=== PATIENT | female | born 1930 | race Caucasian/White ===

== ENCOUNTER → 2016-09-10 | Outpatient (CLI) | payer OTHER ==
[2016-07-21 16:11] VITALS: BP 152/62
[2016-09-10 11:16] LABS: BASOPHILS # (AUTO) 0.1 X10^3/uL (0.0-0.1); BASOPHILS % (AUTO) 0.8 % (0.2-1.0); EOSINOPHILS # (AUTO) 0.1 x10^3/uL (0.0-0.2); EOSINOPHILS % (AUTO) 0.8 % (0.9-2.9); HEMATOCRIT 36.3 % (36.0-47.0); HEMOGLOBIN 12.2 g/dL (12.0-16.0); LYMPHOCYTES # (AUTO) 1.3 X10^3/uL (1.3-2.9); LYMPHOCYTES % (AUTO) 14.6 % (21.0-51.0); MEAN CORPUSCULAR HEMOGLOBIN 30.1 pg (27.0-34.0); MEAN CORPUSCULAR HGB CONC 33.7 g/dL (33.0-35.0); MEAN CORPUSCULAR VOLUME 89.1 fL (80.0-100.0); MEAN PLATELET VOLUME 8.1 fL (7.4-11.0); MONOCYTES # (AUTO) 0.6 x10^3/uL (0.3-0.8); MONOCYTES % (AUTO) 6.3 % (0.0-13.0); NEUTROPHILS # (AUTO) 7.1 x10^3/uL (2.2-4.8); NEUTROPHILS % (AUTO) 77.5 % (42.0-75.0); PLATELET COUNT 253 X10^3/uL (150.0-450.0); RED BLOOD COUNT 4.08 X10^6/uL (3.5-5.4); RED CELL DISTRIBUTION WIDTH 14.1 % (11.6-16.5); WHITE BLOOD COUNT 9.1 X10^3/uL (3.6-10.0)
[2016-09-10 11:40] LABS: ALANINE AMINOTRANSFERASE 23 Units/L (12-78); ALBUMIN 3.8 g/dL (3.4-5.0); ALKALINE PHOSPHATASE 76 Units/L (46-116); ASPARTATE AMINO TRANSFERASE 28 Units/L (15-37); BLOOD UREA NITROGEN 14 mg/dL (7-18); CALCIUM 9.1 mg/dL (8.5-10.1); CARBON DIOXIDE 30.3 mmol/L (21-32); CHLORIDE 105 mmol/L (98-107); CREATININE 1.02 mg/dL (0.55-1.02); GLUCOSE 102 mg/dL (65-99); SODIUM 144 mmol/L (136-145); T4 (THYROXINE) 11.1 ug/dL (4.7-13.3); TOTAL PROTEIN 7.3 g/dL (6.4-8.2); TSH (3RD GENERATION) 1.525 uIU/mL (0.358-3.74); eGFR BLACK RACES > 60 (>60); eGFR NON BLACK RACES 54 (>60)
[2016-09-17 06:09] LABS: METHYLMALONIC ACID 0.22 umol/L (0.00-0.40)
== END ==
LOC: LAB 10:05
PROVIDERS: ATTEND Nurse Practitioner Family
DX: N30.91 Cystitis, unspecified with hematuria (principal); I10 Essential (primary) hypertension; D64.89 Other specified anemias; E11.9 Type 2 diabetes mellitus without complications; R44.1 Visual hallucinations; B96.5 Pseudomonas (aeruginosa) (mallei) (pseudomallei) as the cause of diseases classified elsewhere
CPT/HCPCS: 36415; 80053; 82607; 82615; 82746; 83036; 83918; 84436; 84443; 85025; 85045; 86256; 86340; 87086; 87088; 87186

== ENCOUNTER → 2016-09-16 | Outpatient (CLI) | payer OTHER ==
[2016-07-21 16:11] VITALS: BP 152/62
--- NOTE | 2016-09-16 12:55 | CT ---
STUDY: CT HEAD WITHOUT CONTRAST HISTORY: Visual hallucination. Headaches. Dizziness. COMPARISON: None. TECHNIQUE: Multiple axial images of the head were obtained from the skull base to the vertex without administration of IV contrast. Automated exposure control (AEC) was utilized to adjust the MA and/o r kV. Findings: The sulci, cisterns and ventricles are prominent consistent with diffuse volume loss. There are confluent and scattered foci of low attenuation in the periventricular and subcortical whi te matter of both hemispheres. This is a nonspecific finding which likely represents microangiopathi c change in a patient of this age. Calcifications are noted along the anterior falx. There is no evidence of acute territorial infarct ion, hemorrhage, mass, mass effect or midline shift. There are no abnormal extra-axial fluid collect ions. There is no evidence of acute osseous abnormality or significant soft tissue swelling. IMPRESSION: 1. No evidence of acute intracranial abnormality. 2. Nonspecific white matter change and volume loss as described. 3. If there remains strong clinical concern for acute intracranial abnormality, then an MRI examinat ion should be considered for further evaluation. Reported By:
--- NOTE | 2016-09-16 13:16 | VAS ---
HISTORY: Visual hallucination Study: Bilateral Carotid Ultrasound Comparison: None Technique: Multiple gardiner scale and color flow Doppler images of the right and left carotid arterial system were obtained. The vertebral arterial system was evaluated as well. Findings: Normal color flow Doppler is seen throughout the right and left carotid arterial system. There is s mooth calcified present at the bilateral carotid bifurcations. Peak systolic velocity in the right I CA is 110 cm/sec. Peak systolic velocity in the left ICA is 78 cm/sec. The right ICA/CCA ratio is 2. 43. The left ICA/CCA ratio is 1.35. The right and left vertebral arteries demonstrate antegrade flow . IMPRESSION: 1. No hemodynamically significant stenosis of the carotid arteries using velocity criteria. The rig ht ICA/CCA ratio is slightly elevated however there is no significant plaque or elevated ICA velocit y. Reported By:
== END ==
LOC: RAD 10:57
PROVIDERS: ATTEND Nurse Practitioner Family
DX: R44.1 Visual hallucinations (principal)
CPT/HCPCS: 70450; 93880

== ENCOUNTER → 2016-10-06 | Outpatient (CLI) | payer OTHER ==
[2016-07-21 16:11] VITALS: BP 152/62
== END ==
LOC: RT 08:55
PROVIDERS: ATTEND Nurse Practitioner Family
DX: G47.09 Other insomnia (principal)
CPT/HCPCS: 95819

== ENCOUNTER → 2016-10-11 | Outpatient (CLI) | payer OTHER ==
[2016-07-21 16:11] VITALS: BP 152/62
--- NOTE | 2016-10-12 13:49 | MRI ---
Indication: Headaches and mental status changes. Exam: MRI brain without contrast. Technique: Routine multiplanar multisequence imaging was performed through the brain without contras t. Findings: The ventricles are mildly enlarged and there is diffuse prominence of the cortical sulci. There is no abnormal signal on the diffusion-weighted data set which would suggest any type of acute ischemia. The midline structures are unremarkable. There are numerous punctate and confluent areas of abnormal signal throughout the periventricular white matter bilaterally. No intracranial hemorrha ge or edema is seen and there is no extra-axial fluid collection or mass. The 7th and 8th nerve comp lexes are symmetric and normal size and signal intensity. There is minimal mucosal thickening scatte red in the mastoid air cells on the left. There is no extra-axial fluid collection or mass. The visu alized vascular structures show normal flow voids. Impression: Mild atrophy and moderate chronic microischemic changes throughout the deep white matter with no acu te intracranial abnormality seen. 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 Reported By:
== END ==
LOC: RAD 10:26
PROVIDERS: ATTEND Psychiatry & Neurology Neurology
DX: G47.00 Insomnia, unspecified (principal)
CPT/HCPCS: 70551

== ENCOUNTER 2017-02-24 18:02 | Inpatient (IN) | payer OTHER ==
[2017-02-24 18:48] LABS: BASOPHILS % (AUTO) 0.6 % (0.2-1.0); EOSINOPHILS # (AUTO) 0.1 x10^3/uL (0.0-0.2); EOSINOPHILS % (AUTO) 1.5 % (0.9-2.9); HEMATOCRIT 35.8 % (36.0-47.0); HEMOGLOBIN 12.3 g/dL (12.0-16.0); LYMPHOCYTES # (AUTO) 1.3 X10^3/uL (1.3-2.9); LYMPHOCYTES % (AUTO) 16.5 % (21.0-51.0); MEAN CORPUSCULAR HEMOGLOBIN 30.3 pg (27.0-34.0); MEAN CORPUSCULAR HGB CONC 34.3 g/dL (33.0-35.0); MEAN CORPUSCULAR VOLUME 88.5 fL (80.0-100.0); MEAN PLATELET VOLUME 7.4 fL (7.4-11.0); MONOCYTES # (AUTO) 0.7 x10^3/uL (0.3-0.8); MONOCYTES % (AUTO) 9.4 % (0.0-13.0); NEUTROPHILS # (AUTO) 5.5 x10^3/uL (2.2-4.8); PLATELET COUNT 214 X10^3/uL (150.0-450.0); RED BLOOD COUNT 4.05 X10^6/uL (3.5-5.4); RED CELL DISTRIBUTION WIDTH 13.8 % (11.6-16.5); WHITE BLOOD COUNT 7.7 X10^3/uL (3.6-10.0)
[2017-02-24 19:08] LABS: B-TYPE NATRIURETIC PEPTIDE 91.7 pg/mL (0-79)
[2017-02-24 19:11] LABS: ALANINE AMINOTRANSFERASE 23 Units/L (12-78); ALBUMIN 3.7 g/dL (3.4-5.0); ALKALINE PHOSPHATASE 73 Units/L (46-116); ASPARTATE AMINO TRANSFERASE 31 Units/L (15-37); BLOOD UREA NITROGEN 14 mg/dL (7-18); CALCIUM 9.8 mg/dL (8.5-10.1); CARBON DIOXIDE 33.1 mmol/L (21-32); CHLORIDE 100 mmol/L (98-107); CKMB % 1.5 % (<4); COR NA(FOR HYPERGLY) 138 mmol/L (136-145); CREATINE KINASE 129 Units/L (26-192); CREATINE KINASE MB 1.9 ng/mL (0-4.0); CREATININE 1.24 mg/dL (0.55-1.02); SODIUM 137 mmol/L (136-145); TOTAL PROTEIN 7.4 g/dL (6.4-8.2); TROPONIN I 0.02 ng/mL (0-1.5); eGFR BLACK RACES 53 (>60); eGFR NON BLACK RACES 43 (>60)
--- NOTE | 2017-02-24 19:29 | CT ---
History: Syncope and altered mental status Study: CT head without contrast. Sagittal and coronal reformations were provided. Comparison: September 16, 2016 Findings: There is no interval change. The ventricles and sulci are prominent. There is no intracrani al hemorrhage or mass or edema. There is a prominent focal calcification on the right anterior falx. There is no subdural collection of fluid. There are prominent subarachnoid spaces. There is mild to m oderate diffuse periventricular white matter patchy low attenuation. Impression: 1. No acute intracranial disease 2. Unchanged periventricular white matter small vessel disease and mild atrophy Reported By:
--- NOTE | 2017-02-24 19:33 | DR.GENAD ---
HPI - PCP Primary Care Physician: Dr. El / Rosana Castellano - HPI Comment HPI Comment: NO FEVER OR URI SYMTOMS. STILL FEELING DIZZY SLIGHTLY. INTERMITTENT TAC - Complaint/Symptoms Chief Complaint Doctors Comments: PASS OUT AT HOME GURINDER. WAS DIZZY AND HAD HEART PALPITATION. Chief Complaint:: I passed out. Patient states she was walking around a table and passed out. States that just before she passed out she felt "swimmy headed" and her heart was beating fast. States that she fell straight back but did not hit anything. - Nurses notes reviewed Nurses Notes Review: Yes - Source History Provided: Patient, Family Member, EMS - Mode of Arrival Mode of Arrival: Stretcher - Timing Onset of Chief Complaint: 02/24/17 Came on: Suddenly - Duration Duration: Intermittent Duration: Hours - Severity Severity: Moderate PMH - PMH Past Medical History: Yes Past Medical History: GERD, Hypertension Past Surgical History: Yes Surgical History: Hysterectomy, Ortho Surgery - Family History History of Family Medical Conditions: Yes Family Medical History: Cancer - Social History Do you use any recreational Drugs:: No Lives With: Alone Lives Where: Home - infectious screening In the last 2 months have you had wt loss of >10#?: NO Have you had fever, night sweats or hemotysis?: No Have you traveled outside the country in the last 6 months?: No ROS - Review of Systems Constitutional: Weakness, Fatigue, Loss of Appetite. negative: Chills, Fever Eyes: Blurred Vision. negative: Eye Pain, Discharge, Photophobia ENTM: negative: Ear Pain, Nose Discharge, Nose Congestion, Throat Pain Respiratoy: Non-Productive Cough, Short of Breath. negative: Productive Cough, Wheezing, Hemoptysis Cardiovascular: Chest Pain, Palpitations, Syncope. negative: Edema Gastrointestinal/Abdominal: No Symptoms Reported. negative: Abdominal Pain, Diarrhea, Nausea, Vomiting Genitourinary: No Symptoms Reported. negative: Dysuria, Frequency, Hematuria Neurological: Headache, Weakness, Dizziness Musculoskeletal: Muscle Pain Integumentary: negative: Change in Color Hematologic/Lymphatic: Easy Bleeding, Easy Bruising Endocrine: No Symptoms Reported All Other Systems: Reviewed and Negative Unable to Obtain Due To: Altered mental status PE - Vital Signs Vitals: Temperature 97.2 F Pulse Rate 130 Respiratory Rate 20 Blood Pressure [Right Arm] 147/67 Blood Pressure 156/72 O2 Sat by Pulse Oximetry 100 - General Limitations: Altered Mental Status General Appearance: Alert, In Distress (MILD RESPIRATORY DISTRESS.) - Head Head Exam: Normal Inspection, Atraumatic, Normocephalic - Eyes Eye exam: Normal Appearance, PERRL, EOMI. negative: Scleral Icterus, Conjunctival Injection, Periorbital Swelling, Periorbital Tenderness - ENT ENT Exam: Normal External Ear Exam External Ear Exam: Normal External Inspection TM/Canal Exam: Bilateral Normal Nose Exam: Normal Nose Exam Mouth Exam: Normal Inspection Throat Exam: Normal Inspection - Neck Neck Exam: Trachea Midline - Chest Chest Inspection: Symmetric Chest Wall Rise - Respiratory Respiratory Exam: Normal Lung Sounds Bilat - Cardiovascular Cardiovascular Exam: Regular Rate, Normal Rhythm, Normal Heart Sounds - Abdominal Exam Abdominal Exam: Normal Bowel Sounds, Soft. negative: Tenderness - Extremities Extremities Exam: Normal Inspection - Back Back Exam: Paraspinal Tenderness (LOWER BACK) - Neurologic Neurological Exam: Alert, Oriented X3 (TO PERSON AND PLACE.) - Psychiatric Psychiatric Exam: Normal Affect, Normal Mood - Skin Skin Exam: Normal Color MDM - Additional Information Additional Information Obtained From: Family - Differential Diagnosis Differential Diagnosis: SYNCOPAL EPISODE, AMS, GENERALIZE WEAKNESS, NEW ONSET A FIB Course - Treatment Treatment: SEE ORDERS. - Education/Counseling Education/Counseling: Patient, Family, Education Educated On: Diagnosis, Needs for Follow Up ROR - Labs Reviewed Laboratory Results Reviewed?: Yes Result Diagrams: 02/25/17 04:40 02/24/17 18:39 Laboratory: WBC 7.7 X10^3/uL (3.6-10.0) 02/24/17 18:39 RBC 4.05 X10^6/uL (3.5-5.4) 02/24/17 18:39 Hgb 12.3 g/dL (12.0-16.0) 02/24/17 18:39 Hct 35.8 % (36.0-47.0) L 02/24/17 18:39 MCV 88.5 fL (80.0-100.0) 02/24/17 18:39 MCH 30.3 pg (27.0-34.0) 02/24/17 18:39 MCHC 34.3 g/dL (33.0-35.0) 02/24/17 18:39 RDW 13.8 % (11.6-16.5) 02/24/17 18:39 Plt Count 214 X10^3/uL (150.0-450.0) 02/24/17 18:39 MPV 7.4 fL (7.4-11.0) 02/24/17 18:39 Neut % 72.0 % (42.0-75.0) 02/24/17 18:39 Lymph % 16.5 % (21.0-51.0) L 02/24/17 18:39 [place] % 9.4 % (0.0-13.0) 02/24/17 18:39 Eos % 1.5 % (0.9-2.9) 02/24/17 18:39 Baso % 0.6 % (0.2-1.0) 02/24/17 18:39 Neut # 5.5 x10^3/uL (2.2-4.8) H 02/24/17 18:39 Lymph # 1.3 X10^3/uL (1.3-2.9) 02/24/17 18:39 [place] # 0.7 x10^3/uL (0.3-0.8) 02/24/17 18:39 Eos # 0.1 x10^3/uL (0.0-0.2) 02/24/17 18:39 Baso # 0.0 X10^3/uL (0.0-0.1) 02/24/17 18:39 Absolute Nucleated RBC 0.0 /100WBC 02/24/17 18:39 Sodium 137 mmol/L (136-145) 02/24/17 18:39 Corrected Sodium 138 mmol/L (136-145) 02/24/17 18:39 Potassium 3.1 mmol/L (3.5-5.1) L 02/24/17 18:39 Chloride 100 mmol/L (98-107) 02/24/17 18:39 Carbon Dioxide 33.1 mmol/L (21-32) H 02/24/17 18:39 BUN 14 mg/dL (7-18) 02/24/17 18:39 Creatinine 1.24 mg/dL (0.55-1.02) H 02/24/17 18:39 Est GFR (MDRD) Af Amer 53 (>60) L 02/24/17 18:39 Est GFR (MDRD) Non-Af 43 (>60) L 02/24/17 18:39 Glucose 129 mg/dL (65-99) H 02/24/17 18:39 Calcium 9.8 mg/dL (8.5-10.1) 02/24/17 18:39 Corrected Calcium TNP 02/24/17 18:39 Total Bilirubin 0.50 mg/dL (0.2-1.0) 02/24/17 18:39 AST 31 Units/L (15-37) 02/24/17 18:39 ALT 23 Units/L (12-78) 02/24/17 18:39 Alkaline Phosphatase 73 Units/L (46-116) 02/24/17 18:39 Creatine Kinase 129 Units/L (26-192) 02/24/17 18:39 CK-MB (CK-2) 1.9 ng/mL (0-4.0) 02/24/17 18:39 CK/CKMB % Calc 1.5 % (<4) 02/24/17 18:39 Troponin I 0.02 ng/mL (0-1.5) 02/24/17 18:39 B-Natriuretic Peptide 91.7 pg/mL (0-79) H 02/24/17 18:39 Total Protein 7.4 g/dL (6.4-8.2) 02/24/17 18:39 Albumin 3.7 g/dL (3.4-5.0) 02/24/17 18:39 Globulin 3.7 g/dL (2.5-4.5) 02/24/17 18:39 Albumin/Globulin Ratio 1.0 Ratio (1.1-2.1) L 02/24/17 18:39 - XRAY XRAY Interpreted by: Radiologist XRAY Findings: REPORT DISCUSS WITH PATIENT - EKG Rhythm: Afib (EKG NOTED.) - Diagnosis Discharge Problem: Atrial fibrillation, new onset, Generalized weakness, Hypokalemia Altered mental state Qualifiers: Altered mental status type: transient alteration of awareness Qualified Code(s) : R40.4 - Transient alteration of awareness Episode of syncope Qualifiers: Syncope type: unspecified Qualified Code(s): R55 - Syncope and collapse - Discharge Plan Disposition: ADMITTED INPATIENT Condition: Stable - Follow ups/Referrals - Instructions
--- NOTE | 2017-02-24 19:40 | CT ---
History: Fall at home with low back pain Study: CT of pelvis without contrast. Sagittal and coronal reformations were provided. Comparison: None Findings: There is a left total hip prosthesis well seated. There is osteopenia. The sacrum and sacro iliac joints are unremarkable. The pubic rami are intact. There is no right hip fracture. No soft tis lupillo abnormality is suggested. Impression: No evidence for fracture or acute disease Reported By:
--- NOTE | 2017-02-24 19:43 | CT ---
History: Fall at home and has low back pain Study: CT lumbar spine without contrast. Sagittal and coronal reformations were provided. Comparison: None Findings: There is severe dextroscoliosis in diffuse disc space narrowing with vacuum phenomena and a nd osteophyte formation most severe left laterally. There is osteopenia. There is no fracture or comp ression demonstrated. There are prominent osteophytes about the facet joints diffusely. The spinous p rocesses are intact. 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
--- NOTE | 2017-02-24 20:39 | RAD ---
HISTORY: 86-year-old female with chest pain. Study: Frontal view of the chest. Comparison: None. Findings: The trachea is midline. The cardiac silhouette is unremarkable for technique with significant athero sclerotic calcification of the ectatic thoracic aorta. The lungs are clear without focal consolidati on, effusion or pneumothorax. Soft tissues are unremarkable. degenerative changes of the bilateral s houlders. IMPRESSION: 1. No acute cardiopulmonary disease. Reported By:
[2017-02-24] MEDS: NS 1000 ML 1,000 ML IV SCH (23:45)
[2017-02-24] MEDS: CARDIZEM TAB 30 MG PLAIN PO SCH (23:45)
[2017-02-24] MEDS ORDERED: K-LYTE EFFERVESCENT PO PRN (23:53)
[2017-02-24] MEDS ORDERED: POTASSIUM CHLORIDE LIQ 20 MEQ UDC PO PRN (23:53)
[2017-02-24] MEDS ORDERED: K-DUR TAB 20 MEQ PO PRN (23:53)
[2017-02-24] MEDS ORDERED: K-RIDER 10 MEQ/NS 100 ML 10 MEQ/100 ML BAG IV PRN (23:53)
[2017-02-25] MEDS ORDERED: METOPROLOL TARTRATE PO SCH (00:30)
[2017-02-25 01:23] VITALS: BMI 21.2
[2017-02-25 01:40] LABS: BILIRUBIN,URINE NEGATIVE (NEGATIVE); BLOOD/HEMOGLOBIN,URINE NEGATIVE (NEGATIVE); GLUCOSE, URINE NEGATIVE (NEGATIVE); KETONES,URINE NEGATIVE (NEGATIVE); LEUKOCYTE ESTERASE ,URINE 2+ (NEGATIVE); NITRITES,URINE NEGATIVE (NEGATIVE); PROTEIN,URINE NEGATIVE (NEGATIVE); UROBILINOGEN,URINE NORMAL (NORMAL)
[2017-02-25 01:55] LABS: APPEARANCE,URINE SLIGHTLY HAZY (CLEAR); BACTERIA,URINE TRACE /HPF (NEGATIVE); COLOR,URINE YELLOW (YELLOW); RBC,URINE 0-3 /HPF (NEGATIVE); SQUAMOUS EPITHELIAL CELL,UR RARE /HPF (NEGATIVE)
[2017-02-25] MEDS: NORCO 10/325 TAB PO PRN ×2 (02:13→10:21)
[2017-02-25 05:35] LABS: BASOPHILS # (AUTO) 0.1 X10^3/uL (0.0-0.1); BASOPHILS % (AUTO) 0.8 % (0.2-1.0); EOSINOPHILS # (AUTO) 0.2 x10^3/uL (0.0-0.2); EOSINOPHILS % (AUTO) 2.3 % (0.9-2.9); HEMATOCRIT 29.6 % (36.0-47.0); HEMOGLOBIN 10.4 g/dL (12.0-16.0); LYMPHOCYTES # (AUTO) 1.4 X10^3/uL (1.3-2.9); LYMPHOCYTES % (AUTO) 17.3 % (21.0-51.0); MEAN CORPUSCULAR HEMOGLOBIN 30.8 pg (27.0-34.0); MEAN CORPUSCULAR VOLUME 88.1 fL (80.0-100.0); MEAN PLATELET VOLUME 7.7 fL (7.4-11.0); MONOCYTES # (AUTO) 0.8 x10^3/uL (0.3-0.8); MONOCYTES % (AUTO) 10.3 % (0.0-13.0); NEUTROPHILS # (AUTO) 5.5 x10^3/uL (2.2-4.8); NEUTROPHILS % (AUTO) 69.3 % (42.0-75.0); PLATELET COUNT 191 X10^3/uL (150.0-450.0); RED BLOOD COUNT 3.36 X10^6/uL (3.5-5.4); RED CELL DISTRIBUTION WIDTH 13.7 % (11.6-16.5)
[2017-02-25 05:54] LABS: CKMB % 1.5 % (<4); CREATINE KINASE MB 1.1 ng/mL (0-4.0); TROPONIN I 0.03 ng/mL (0-1.5)
[2017-02-25] MEDS: CARDIZEM TAB 30 MG PLAIN PO SCH ×2 (06:12→13:51)
[2017-02-25 06:23] LABS: ALANINE AMINOTRANSFERASE 18 Units/L (12-78); ALBUMIN 2.8 g/dL (3.4-5.0); ALKALINE PHOSPHATASE 53 Units/L (46-116); ASPARTATE AMINO TRANSFERASE 23 Units/L (15-37); BLOOD UREA NITROGEN 12 mg/dL (7-18); CALCIUM 8.9 mg/dL (8.5-10.1); CHLORIDE 102 mmol/L (98-107); COR CA(FOR HYPOALB) 9.9 mg/dL (8.5-10.1); CREATININE 1.08 mg/dL (0.55-1.02); MAGNESIUM 1.7 mg/dL (1.7-2.9); SODIUM 136 mmol/L (136-145); TOTAL PROTEIN 5.8 g/dL (6.4-8.2); eGFR BLACK RACES > 60 (>60); eGFR NON BLACK RACES 51 (>60)
[2017-02-25 06:36] LABS: CARBON DIOXIDE 30.5 mmol/L (21-32)
[2017-02-25] MEDS ORDERED: LOPRESSOR TAB 50 MG PO SCH (09:00)
[2017-02-25] MEDS: HYDROCHLOROTHIAZIDE 12.5 MG CAP PO SCH (09:29)
[2017-02-25] MEDS: NS 1000 ML 1,000 ML IV SCH (11:47)
[2017-02-25 11:51] LABS: CKMB % 1.4 % (<4); CREATINE KINASE 72 Units/L (26-192); CREATINE KINASE MB < 1.0 ng/mL (0-4.0); TROPONIN I 0.03 ng/mL (0-1.5)
[2017-02-25] MEDS: LOVENOX INJ 40 MG SYR SC SCH (17:04)
[2017-02-25] MEDS: CARDIZEM CD 240 MG PO SCH (17:14)
[2017-02-25] MEDS ORDERED: PATIENT'S HOME MEDICATION (Clonazepam [Clonazepam] 1 TAB) PO SCH (21:00)
[2017-02-25] MEDS ORDERED: KLONOPIN TAB 1 MG PO SCH (21:00)
[2017-02-25] MEDS: LOPRESSOR TAB 25 MG PO SCH (21:25)
[2017-02-26] MEDS: NS 1000 ML 1,000 ML IV SCH ×2 (01:00→07:11)
[2017-02-26] MEDS: NORCO 10/325 TAB PO PRN ×2 (03:00→14:25)
[2017-02-26 06:20] LABS: BASOPHILS # (AUTO) 0.1 X10^3/uL (0.0-0.1); BASOPHILS % (AUTO) 1.2 % (0.2-1.0); EOSINOPHILS # (AUTO) 0.4 x10^3/uL (0.0-0.2); EOSINOPHILS % (AUTO) 4.2 % (0.9-2.9); HEMATOCRIT 34.9 % (36.0-47.0); HEMOGLOBIN 11.7 g/dL (12.0-16.0); LYMPHOCYTES # (AUTO) 1.5 X10^3/uL (1.3-2.9); LYMPHOCYTES % (AUTO) 16.8 % (21.0-51.0); MEAN CORPUSCULAR HEMOGLOBIN 29.8 pg (27.0-34.0); MEAN CORPUSCULAR HGB CONC 33.6 g/dL (33.0-35.0); MEAN CORPUSCULAR VOLUME 88.8 fL (80.0-100.0); MEAN PLATELET VOLUME 7.6 fL (7.4-11.0); MONOCYTES # (AUTO) 0.8 x10^3/uL (0.3-0.8); MONOCYTES % (AUTO) 9.1 % (0.0-13.0); NEUTROPHILS # (AUTO) 6.1 x10^3/uL (2.2-4.8); NEUTROPHILS % (AUTO) 68.7 % (42.0-75.0); PLATELET COUNT 207 X10^3/uL (150.0-450.0); RED BLOOD COUNT 3.93 X10^6/uL (3.5-5.4); RED CELL DISTRIBUTION WIDTH 14.2 % (11.6-16.5); WHITE BLOOD COUNT 8.9 X10^3/uL (3.6-10.0)
[2017-02-26 06:26] LABS: ALANINE AMINOTRANSFERASE 19 Units/L (12-78); ALBUMIN 3.2 g/dL (3.4-5.0); ALKALINE PHOSPHATASE 64 Units/L (46-116); ASPARTATE AMINO TRANSFERASE 27 Units/L (15-37); BLOOD UREA NITROGEN 11 mg/dL (7-18); CALCIUM 9.4 mg/dL (8.5-10.1); CARBON DIOXIDE 27.5 mmol/L (21-32); CHLORIDE 105 mmol/L (98-107); CREATININE 0.92 mg/dL (0.55-1.02); SODIUM 140 mmol/L (136-145); TOTAL PROTEIN 6.6 g/dL (6.4-8.2); eGFR BLACK RACES > 60 (>60); eGFR NON BLACK RACES > 60 (>60)
[2017-02-26] MEDS: LOVENOX INJ 40 MG SYR SC SCH (09:21)
[2017-02-26] MEDS: CARDIZEM CD 240 MG PO SCH (09:22)
[2017-02-26] MEDS: HYDROCHLOROTHIAZIDE 12.5 MG CAP PO SCH (09:23)
[2017-02-26] MEDS: LOPRESSOR TAB 25 MG PO SCH ×2 (10:22→21:00)
[2017-02-26] MEDS ORDERED: MILK OF MAGNESIA PO PRN (12:58)
[2017-02-26] MEDS: PEPCID TAB 20 MG PO SCH ×2 (16:46→20:40)
[2017-02-26] MEDS: XANAX PO PRN (16:46)
[2017-02-26] MEDS ORDERED: PEPCID TAB 20 MG ONE (16:50)
[2017-02-26] MEDS ORDERED: RESTORIL CAP 15 MG PO PRN (20:02)
[2017-02-26] MEDS: COLACE CAP 100 MG PO PRN (20:39)
[2017-02-27] MEDS: NS 1000 ML 1,000 ML IV SCH (03:00)
[2017-02-27] MEDS ORDERED: ROCEPHIN VIAL 1 GM 1 GM in NS 50 ML IV + SPIKE MINIBAG* 50 ML IV ONE (08:49)
[2017-02-27] MEDS: COLACE CAP 100 MG PO PRN (09:19)
[2017-02-27] MEDS: HYDROCHLOROTHIAZIDE 12.5 MG CAP PO SCH (09:20)
[2017-02-27] MEDS: XANAX PO PRN (09:20)
[2017-02-27] MEDS: PEPCID TAB 20 MG PO SCH (09:20)
[2017-02-27] MEDS: LOVENOX INJ 40 MG SYR SC SCH (09:20)
[2017-02-27] MEDS: CARDIZEM CD 240 MG PO SCH ×2 (09:21→14:46)
[2017-02-27] MEDS: LOPRESSOR TAB 25 MG PO SCH (09:21)
[2017-02-27 12:25] VITALS: BP 149/67
[2017-02-27] MEDS ORDERED: CEFTIN PO ONE (14:50)
[2017-02-27] MEDS ORDERED: CEFTIN PO SCH (15:00)
== END 2017-02-27 15:30 | disposition home or self-care (01) | DRG 310 ==
LOC: ER 18:02 → ICU 22:21 → OBSVTOIN 02-26 19:27
PROVIDERS: ADMIT Internal Medicine; ATTEND Internal Medicine
DX: I48.91 Unspecified atrial fibrillation (principal); R41.82 Altered mental status, unspecified; R55 Syncope and collapse; W19.XXXA Unspecified fall, initial encounter; Y92.009 Unspecified place in unspecified non-institutional (private) residence as the place of occurrence of the external cause; M54.89 Other dorsalgia; B96.20 Unspecified Escherichia coli [E. coli] as the cause of diseases classified elsewhere
CPT/HCPCS: 36415; 70450; 71010; 72131; 72192; 80053; 81001; 82550; 82553; 83735; 83880; 84132; 84484; 85025; 85610; 85730; 87086; 87088; 87186; 93005; 93010; 94760; 96365; 99284; A4222; G0378; J1650

== ENCOUNTER 2017-03-08 02:11 | Inpatient (IN) | payer OTHER ==
[2017-03-08] MEDS ORDERED: MORPHINE SULFATE INJ 4 MG ONE (02:22)
[2017-03-08] MEDS ORDERED: ZOFRAN INJ 4 MG VIAL ONE (02:22)
[2017-03-08] MEDS ORDERED: ZOFRAN INJ 4 MG VIAL IVP ONE (02:22)
[2017-03-08] MEDS ORDERED: MORPHINE SULFATE INJ 4 MG IVP ONE (02:22)
[2017-03-08 02:38] VITALS: BMI 22.1
--- NOTE | 2017-03-08 02:44 | DR.GENAD ---
HPI - PCP Primary Care Physician: BLACK - HPI Comment HPI Comment: PATIENT HAVE PROSTHESIS IN LEFT HIP AND KNEE. CURRENTLY HAVE GENERALIZE HIVES AND RASH. TREATED FOR SAME YESTERDAY AND GIVEN BENADRYL. FELL GOING TO BATHROOM. - Complaint/Symptoms Chief Complaint Doctors Comments: PATIENT FELL AT HOME HERE WITH LEFT HIP PAIN AND LATERAL ROTATION OF LEFT LOWER EXTREMITY. Chief Complaint:: FALL, LEFT HIP PAIN, LATERAL ROTATION OF LEFT FOOT. - Nurses notes reviewed Nurses Notes Review: Yes - Source History Provided: Patient, EMS - Mode of Arrival Mode of Arrival: EMS - Timing Onset of Chief Complaint: 03/08/17 Came on: Suddenly - Duration Duration: Constant Duration: Hours - Severity Severity: Moderate PMH - PMH Past Medical History: Yes Past Medical History: GERD, Hypertension Past Medical History Comment: BREAST CANCER Past Surgical History: Yes Surgical History: Hysterectomy, Mastectomy, Ortho Surgery Past Surgical History Comment: LEFT MASTECTOMY. LEFT HIP REPLACEMENT. LEFT KNEE REPLACEMENT - Family History History of Family Medical Conditions: Yes Family Medical History: Cancer - Social History Does patient currently use any type of tobacco product: No Have you used tobacco products in the last 12 months: No Type of Tobacco Use: None Does any household member use tobacco: No Alcohol Use: None Do you use any recreational Drugs:: No Lives With: Family Lives Where: Home - infectious screening Have you traveled outside the country in the last 6 months?: No Isolation: Standard ROS - Review of Systems Constitutional: Weakness, Fatigue. negative: Chills, Fever Eyes: No Symptoms Reported. negative: Eye Pain, Blurred Vision, Discharge, Photophobia ENTM: No Symptoms Reported. negative: Ear Pain, Nose Discharge, Nose Congestion , Throat Pain Respiratoy: Non-Productive Cough, Short of Breath. negative: Productive Cough, Stridor, Wheezing, Hemoptysis Cardiovascular: negative: Chest Pain Gastrointestinal/Abdominal: negative: Abdominal Pain, Nausea, Vomiting Genitourinary: negative: Dysuria, Hematuria Neurological: Headache, Dizziness. negative: Weakness Musculoskeletal: Muscle Pain Integumentary: Rash (GENERALIZE HIVES.) Hematologic/Lymphatic: Easy Bruising Endocrine: No Symptoms Reported All Other Systems: Reviewed and Negative PE - Vital Signs Vitals: Temperature 99.3 F Pulse Rate 90 Respiratory Rate 18 Blood Pressure [Right Arm] 149/67 Blood Pressure 125/57 O2 Sat by Pulse Oximetry 100 - General Limitations: No Limitations General Appearance: Alert - Head Head Exam: Normal Inspection - Eyes Eye exam: PERRL, EOMI. negative: Scleral Icterus, Conjunctival Injection - ENT ENT Exam: Normal External Ear Exam External Ear Exam: Normal External Inspection TM/Canal Exam: Bilateral Normal Nose Exam: Normal Nose Exam Mouth Exam: Normal Inspection Throat Exam: Normal Inspection - Neck Neck Exam: Normal Inspection, Trachea Midline. negative: Tenderness - Chest Chest Inspection: Symmetric Chest Wall Rise - Respiratory Respiratory Exam: Normal Lung Sounds Bilat Respiratory Exam: Bilateral Rhonchi, Lower Rhonchi - Cardiovascular Cardiovascular Exam: Regular Rate, Normal Rhythm, Normal Heart Sounds - Abdominal Exam Abdominal Exam: Normal Bowel Sounds, Soft. negative: Tenderness - Extremities Extremities Exam: Tenderness (LEFT LOWER EXTREMITY) - Back Back Exam: Normal Inspection, Paraspinal Tenderness - Neurologic Neurological Exam: Alert, Oriented X3 - Psychiatric Psychiatric Exam: Anxious - Skin Skin Exam: Rash MDM - Additional Information Additional Information Obtained From: Family - Differential Diagnosis Differential Diagnosis: FRACTURE HIP, FRACTURE FEMURE, SPRAIN, CONTUSION, STRAIN Course - Treatment Treatment: SEE ORTHERS - Consultation Consultation Comments: DISCUSS PATIENT WITH DR. FITCH, ORTHOPEDIC DR. HE WILL SEE HAVE MED[employer]IA [employer]CH[employer]IC ADMIT PT AND WILL DO CONSULT. DR. COLIN WILL ADMIT PATIENT FATIENT. - Education/Counseling Education/Counseling: Patient, Family, Education Educated On: Treatment, Diagnosis ROR - Labs Reviewed Laboratory Results Reviewed?: Yes (PATIENT HAVE RASH AND IS ON STERIODS,) Result Diagrams: 03/08/17 03:55 03/08/17 03:22 Laboratory: WBC 20.4 X10^3/uL (3.6-10.0) H* 03/08/17 03:55 RBC 3.51 X10^6/uL (3.5-5.4) 03/08/17 03:55 Hgb 10.5 g/dL (12.0-16.0) L 03/08/17 03:55 Hct 31.3 % (36.0-47.0) L 03/08/17 03:55 MCV 89.3 fL (80.0-100.0) 03/08/17 03:55 MCH 30.0 pg (27.0-34.0) 03/08/17 03:55 MCHC 33.6 g/dL (33.0-35.0) 03/08/17 03:55 RDW 14.0 % (11.6-16.5) 03/08/17 03:55 Plt Count 294 X10^3/uL (150.0-450.0) 03/08/17 03:55 Plt Count Comment Adequate (ADEQUATE) 03/08/17 03:55 MPV 7.6 fL (7.4-11.0) 03/08/17 03:55 Neut % 87.1 % (42.0-75.0) H 03/08/17 03:55 Lymph % 5.9 % (21.0-51.0) L 03/08/17 03:55 [place] % 5.9 % (0.0-13.0) 03/08/17 03:55 Eos % 0.7 % (0.9-2.9) L 03/08/17 03:55 Baso % 0.4 % (0.2-1.0) 03/08/17 03:55 Neut # 17.8 x10^3/uL (2.2-4.8) H 03/08/17 03:55 Lymph # 1.2 X10^3/uL (1.3-2.9) L 03/08/17 03:55 [place] # 1.2 x10^3/uL (0.3-0.8) H 03/08/17 03:55 Eos # 0.1 x10^3/uL (0.0-0.2) 03/08/17 03:55 Baso # 0.1 X10^3/uL (0.0-0.1) 03/08/17 03:55 Absolute Nucleated RBC 0.0 /100WBC 03/08/17 03:55 Total Counted 100 03/08/17 03:55 Neutrophils % (Manual) 80 % (39-76) H 03/08/17 03:55 Band Neutrophils % 7 % (0-10) 03/08/17 03:55 Lymphocytes % (Manual) 8 % (13-43) L 03/08/17 03:55 Monocytes % (Manual) 5 % (4-9) 03/08/17 03:55 Plt Morphology Comment Normal (NORMAL) 03/08/17 03:55 RBC Morphology Normal (NORMAL) 03/08/17 03:55 Sodium 140 mmol/L (136-145) 03/08/17 03:22 Corrected Sodium 140 mmol/L (136-145) 03/08/17 03:22 Potassium 3.7 mmol/L (3.5-5.1) 03/08/17 03:22 Chloride 105 mmol/L (98-107) 03/08/17 03:22 Carbon Dioxide 29.6 mmol/L (21-32) 03/08/17 03:22 BUN 18 mg/dL (7-18) 03/08/17 03:22 Creatinine 1.10 mg/dL (0.55-1.02) H 03/08/17 03:22 Est GFR (MDRD) Af Amer > 60 (>60) 03/08/17 03:22 Est GFR (MDRD) Non-Af 50 (>60) L 03/08/17 03:22 Glucose 120 mg/dL (65-99) H 03/08/17 03:22 Calcium 9.1 mg/dL (8.5-10.1) 03/08/17 03:22 Corrected Calcium 10.2 mg/dL (8.5-10.1) H 03/08/17 03:22 Total Bilirubin 0.30 mg/dL (0.2-1.0) 03/08/17 03:22 AST 27 Units/L (15-37) 03/08/17 03:22 ALT 18 Units/L (12-78) 03/08/17 03:22 Alkaline Phosphatase 71 Units/L (46-116) 03/08/17 03:22 Total Protein 5.8 g/dL (6.4-8.2) L 03/08/17 03:22 Albumin 2.6 g/dL (3.4-5.0) L 03/08/17 03:22 Globulin 3.2 g/dL (2.5-4.5) 03/08/17 03:22 Albumin/Globulin Ratio 0.8 Ratio (1.1-2.1) L 03/08/17 03:22 - XRAY XRAY Interpreted by: Radiologist XRAY Findings: REPORT DISCUSS WITH PATIENT AND FAMILY. - EKG Rhythm: NSR (EKG NOTED) - Diagnosis Discharge Problem: Fracture of left femur Qualifiers: Encounter type: initial encounter Femur location: shaft Fracture type: closed Fracture morphology: transverse Fracture alignment: displaced Qualified Code(s) : S72.322A - Displaced transverse fracture of shaft of left femur, initial encounter for closed fracture Contusion Qualifiers: Encounter type: initial encounter Contusion area: lower leg Laterality: left Qualified Code(s): S80.12XA - Contusion of left lower leg, initial encounter - Discharge Plan Condition: Stable - Follow ups/Referrals - Instructions
--- NOTE | 2017-03-08 03:01 | RAD ---
EXAM: Left hip x-ray INDICATION: Hip Pain COMPARISION: No priors for comparison TECHNIQUE: Two views FINDINGS: There is a left hip arthroplasty. No acute fracture or dislocation. Visualized bones of the pelvis ar e intact. IMPRESSION: No acute abnormality Reported By:
[2017-03-08 03:41] LABS: ALANINE AMINOTRANSFERASE 18 Units/L (12-78); ALBUMIN 2.6 g/dL (3.4-5.0); ALKALINE PHOSPHATASE 71 Units/L (46-116); ASPARTATE AMINO TRANSFERASE 27 Units/L (15-37); BLOOD UREA NITROGEN 18 mg/dL (7-18); CALCIUM 9.1 mg/dL (8.5-10.1); CARBON DIOXIDE 29.6 mmol/L (21-32); CHLORIDE 105 mmol/L (98-107); COR CA(FOR HYPOALB) 10.2 mg/dL (8.5-10.1); COR NA(FOR HYPERGLY) 140 mmol/L (136-145); SODIUM 140 mmol/L (136-145); TOTAL PROTEIN 5.8 g/dL (6.4-8.2); eGFR BLACK RACES > 60 (>60); eGFR NON BLACK RACES 50 (>60)
[2017-03-08 04:05] LABS: BASOPHILS # (AUTO) 0.1 X10^3/uL (0.0-0.1); BASOPHILS % (AUTO) 0.4 % (0.2-1.0); EOSINOPHILS # (AUTO) 0.1 x10^3/uL (0.0-0.2); EOSINOPHILS % (AUTO) 0.7 % (0.9-2.9); HEMATOCRIT 31.3 % (36.0-47.0); HEMOGLOBIN 10.5 g/dL (12.0-16.0); LYMPHOCYTES # (AUTO) 1.2 X10^3/uL (1.3-2.9); LYMPHOCYTES % (AUTO) 5.9 % (21.0-51.0); MEAN CORPUSCULAR HGB CONC 33.6 g/dL (33.0-35.0); MEAN CORPUSCULAR VOLUME 89.3 fL (80.0-100.0); MEAN PLATELET VOLUME 7.6 fL (7.4-11.0); MONOCYTES # (AUTO) 1.2 x10^3/uL (0.3-0.8); MONOCYTES % (AUTO) 5.9 % (0.0-13.0); NEUTROPHILS # (AUTO) 17.8 x10^3/uL (2.2-4.8); NEUTROPHILS % (AUTO) 87.1 % (42.0-75.0); PLATELET COUNT 294 X10^3/uL (150.0-450.0); RED BLOOD COUNT 3.51 X10^6/uL (3.5-5.4)
[2017-03-08 04:07] LABS: WHITE BLOOD COUNT 20.4 X10^3/uL (3.6-10.0)
--- NOTE | 2017-03-08 04:11 | RAD ---
EXAM: Chest X-ray INDICATION: Chest trauma COMPARISION: Prior exam from February 24, 2017 TECHNIQUE: PA, single view FINDINGS: The lungs are clear. The heart is moderately enlarged. No pleural effusion or pneumothorax. The media stinum is normal. The regional skeleton is intact. IMPRESSION: Cardiomegaly. The remainder of the examination appears unremarkable. Reported By:
[2017-03-08 04:14] LABS: BAND NEUTROPHILS % 7 % (0-10); PLATELET MORPHOLOGY COMMENT NORMAL (NORMAL)
--- NOTE | 2017-03-08 04:17 | CT ---
EXAM: CT BRAIN WITHOUT CONTRAST INDICATION: Headache COMPARISION: No Priors TECHNIQUE: Routine axial CT of the brain was performed without intravenous contrast. FINDINGS: There is moderate bilateral cortical atrophy. Patchy areas of low-attenuation are identified in the p eriventricular white matter bilaterally. The ventricular system is not abnormally dilated. No intra o r extra-axial mass or hemorrhage. The gardiner-white junction is preserved. There is no evidence of subac [place] ischemic change. The basilar cisterns are clear. The skull is intact. The paranasal sinuses and mastoid air cells are clear. IMPRESSION: There is bilateral cortical atrophy. Periventricular and subcortical white matter changes are present bilaterally consistent with mild small vessel vasculopathy. No acute abnormality identified. Reported By:
--- NOTE | 2017-03-08 04:22 | CT ---
EXAM: CT Pelvis without Contrast INDICATION: Left hip pain COMPARISION: No prior TECHNIQUE: Axial images of the pelvis was obtained without intravenous contrast. Coronal and sagittal reconstruc tions were created using the axial data. FINDINGS: There is a left hip arthroplasty. No acute fracture or dislocation. The joint spaces are preserved. T he soft tissues are normal. No radiopaque foreign body. IMPRESSION: No acute abnormality Reported By:
--- NOTE | 2017-03-08 04:27 | CT ---
EXAM: CT left lower extremity without contrast INDICATION: Pain, fall COMPARISION: No prior TECHNIQUE: Axial CT examination of the left femur was obtained. Coronal and sagittal reconstructions were create d using the axial data. FINDINGS: There is a segmental fracture of the mid to distal diaphysis of the femur. The distal shaft is rotate d 90 medially and there is lateral displacement 100% shaft width. There is shortening of approximate ly 5.3 cm. IMPRESSION: There is a displaced segmental fracture of the mid to distal diaphysis of the femur. Reported By:
[2017-03-08 05:29] LABS: BILIRUBIN,URINE NEGATIVE (NEGATIVE); BLOOD/HEMOGLOBIN,URINE 1+ (NEGATIVE); GLUCOSE, URINE NEGATIVE (NEGATIVE); KETONES,URINE NEGATIVE (NEGATIVE); LEUKOCYTE ESTERASE ,URINE NEGATIVE (NEGATIVE); NITRITES,URINE NEGATIVE (NEGATIVE); PROTEIN,URINE NEGATIVE (NEGATIVE); UROBILINOGEN,URINE NORMAL (NORMAL)
[2017-03-08 05:36] LABS: APPEARANCE,URINE CLEAR (CLEAR); BACTERIA,URINE TRACE /HPF (NEGATIVE); COLOR,URINE YELLOW (YELLOW); SQUAMOUS EPITHELIAL CELL,UR RARE /HPF (NEGATIVE)
[2017-03-08] MEDS: NS 1000 ML 1,000 ML IV SCH ×3 (06:00→23:08)
[2017-03-08 06:12] LABS: ALBUMIN 2.7 g/dL (3.4-5.0); CALCIUM 9.1 mg/dL (8.5-10.1); CARBON DIOXIDE 29.4 mmol/L (21-32); COR CA(FOR HYPOALB) 10.1 mg/dL (8.5-10.1); CREATININE 1.16 mg/dL (0.55-1.02); TOTAL PROTEIN 6.1 g/dL (6.4-8.2)
[2017-03-08] MEDS: MORPHINE SULFATE INJ 4 MG IVP PRN ×2 (07:25→12:55)
[2017-03-08] MEDS: DUONEB 0.5 MG/3 MG NEB SCH ×4 (09:37→20:41)
[2017-03-08] MEDS ORDERED: LOVENOX INJ 40 MG SYR SC SCH (10:00)
[2017-03-08 12:44] LABS: BASOPHILS # (AUTO) 0.1 X10^3/uL (0.0-0.1); BASOPHILS % (AUTO) 0.4 % (0.2-1.0); EOSINOPHILS # (AUTO) 0.1 x10^3/uL (0.0-0.2); EOSINOPHILS % (AUTO) 0.4 % (0.9-2.9); HEMATOCRIT 26.6 % (36.0-47.0); HEMOGLOBIN 9.1 g/dL (12.0-16.0); LYMPHOCYTES # (AUTO) 0.9 X10^3/uL (1.3-2.9); LYMPHOCYTES % (AUTO) 4.3 % (21.0-51.0); MEAN CORPUSCULAR HEMOGLOBIN 30.6 pg (27.0-34.0); MEAN CORPUSCULAR HGB CONC 34.2 g/dL (33.0-35.0); MEAN CORPUSCULAR VOLUME 89.6 fL (80.0-100.0); MEAN PLATELET VOLUME 7.4 fL (7.4-11.0); MONOCYTES # (AUTO) 1.3 x10^3/uL (0.3-0.8); MONOCYTES % (AUTO) 6.1 % (0.0-13.0); NEUTROPHILS # (AUTO) 18.5 x10^3/uL (2.2-4.8); NEUTROPHILS % (AUTO) 88.8 % (42.0-75.0); PLATELET COUNT 262 X10^3/uL (150.0-450.0); RED BLOOD COUNT 2.97 X10^6/uL (3.5-5.4); RED CELL DISTRIBUTION WIDTH 14.1 % (11.6-16.5)
[2017-03-08 12:48] LABS: WHITE BLOOD COUNT 20.9 X10^3/uL (3.6-10.0)
[2017-03-08 12:52] LABS: ALANINE AMINOTRANSFERASE 19 Units/L (12-78); ALBUMIN 2.3 g/dL (3.4-5.0); ALKALINE PHOSPHATASE 60 Units/L (46-116); ASPARTATE AMINO TRANSFERASE 28 Units/L (15-37); BLOOD UREA NITROGEN 18 mg/dL (7-18); CALCIUM 8.4 mg/dL (8.5-10.1); CARBON DIOXIDE 29.9 mmol/L (21-32); CHLORIDE 107 mmol/L (98-107); COR CA(FOR HYPOALB) 9.8 mg/dL (8.5-10.1); CREATININE 1.07 mg/dL (0.55-1.02); SODIUM 141 mmol/L (136-145); TOTAL PROTEIN 5.2 g/dL (6.4-8.2); eGFR BLACK RACES > 60 (>60); eGFR NON BLACK RACES 51 (>60)
[2017-03-08 13:04] LABS: PLATELET MORPHOLOGY COMMENT NORMAL (NORMAL)
[2017-03-08] MEDS ORDERED: SALINE 0.9% 3 ML NEB TX ONE ×2 (13:06→13:07)
[2017-03-08] MEDS ORDERED: SALINE 3% 15 ML NEB TX ONE (13:09)
--- NOTE | 2017-03-08 13:12 | DR.H&P ---
H&P - History & Physical for Day of: H&P Date: 03/08/17 - Chief Complaint Chief Complaint: fall, left hip/thigh pain - Allergies Allergies/Adverse Reactions: Allergies Allergy/AdvReac Type Severity Reaction Status Date / Time codeine Allergy Verified 03/08/17 02:28 Penicillins Allergy Verified 03/08/17 02:28 Sulfa (Sulfonamide Allergy Verified 03/08/17 02:28 Antibiotics) [SULFA] - History of Present Illness History of Present Illness: patient is a 86-year-old white female who is an ER admission after presenting to the emergency room with family after a fall resulting in acute left hip pain. Patient had an x-ray and CT confirming a left femur fracture. Patient was admitted for further evaluation and orthopedic consult. Patient was recently sustained in [facility] due to irregular heart rate and rhythm. Patient was started on Cardizem which she states she is currently taking. Patient denies any chest pain or increased shortness of breath however patient was same late yesterday evening at [facility]'s office for a possible drug reaction rash. Patient continues to have diffuse rash she received a shot of Kenalog IM in the office. Patient has a history of penicillin allergy and was on a cephalosporin for infection we discussed the possibility of a sensitivity reaction to medication. Please add Ceftin to patient's list of allergies. Patient also has been suffering from a URI. Patient had a nonproductive cough and hoarse voice - Past Medical History Past Medical History: GERD, Hypertension - Past Surgical History Surgical History: Hysterectomy, Mastectomy, Ortho Surgery - Family History Family Medical History: Cancer - Social History Does patient currently use any type of tobacco product: No Have you used tobacco products in the last 12 months: No Type of Tobacco Use: None Does any household member use tobacco: No Alcohol Use: None Drug Use: None - Review of Systems Constitutional: Weakness Eyes: No Symptoms Reported ENT: No Symptoms Reported Respiratory: Cough, Shortness of Breath Cardiovascular: No Symptoms Reported Gastrointestinal: No Symptoms Reported Genitourinary: No Symptoms Reported Musculoskeletal: Leg Pain (review) Skin: Rash - Physical Exam Vital Signs: Temperature 100.0 F Pulse Rate [Left Radial] 69 Pulse Rate 80 Respiratory Rate 16 Blood Pressure [Right Arm] 122/58 Blood Pressure 125/57 O2 Sat by Pulse Oximetry 100 Oriented: Normal Eyes: Normal Ear: Normal Nose: Normal Throat: Normal Respiratory: Rhonchi Throughout (central rhonchi) Cardiovascular: Normal : Normal Auscultation: Bowel Sounds: Normal Palpation: Normal Tenderness: Normal Skin: Rash, Maculopapular Musculoskeletal: Left, Hip, Thigh, Leg Psychiatric: Anxiety Speech Pattern: Clear, Appropriate - Assessment/Plan (1) Fracture of left femur Qualifiers: Encounter type: initial encounter Femur location: shaft Fracture type: closed Fracture morphology: transverse Fracture alignment: displaced Qualified Code(s): S72.322A - Displaced transverse fracture of shaft of left femur, initial encounter for closed fracture Status: Acute Plan: admit, ortho consult. pain control. ekg and telemetry. cxr, ct head done in ed. lovenox prophalaxis, bp monitoring. resp consult zithromax for bronchitis (2) Paroxysmal a-fib Status: Acute (3) Acute bronchitis Status: Acute (4) Rash and nonspecific skin eruption Status: Acute Plan: benadryl iv, topical triamcinolone cream (5) Arthritis Status: Chronic (6) Hypertension Status: Chronic
[2017-03-08] MEDS: ZITHROMAX INJ 500 MG VIAL 250 MG in NS 250 ML IV 250 ML IV SCH (13:29)
[2017-03-08] MEDS: LEVAQUIN PREMIX IV 500 MG 500 MG/100 ML BAG IV SCH (13:29)
[2017-03-08] MEDS: KENALOG CREAM TOP SCH ×2 (14:02→22:40)
[2017-03-08] MEDS ORDERED: NAROPIN EPIDURAL 0.2% 400 MG, NS 250 ML IV 200 ML EPI PRN ×2 (15:00)
[2017-03-08] MEDS ORDERED: Q PUMP EPI ONE (15:00)
[2017-03-08] MEDS ORDERED: MARCAINE 0.25% INJ ONE (15:10)
--- NOTE | 2017-03-08 16:57 | RAD ---
Four views of the left femur Indication: Leg pain post traction Findings There is an oblique oriented fracture of the distal femoral diaphysis with moderate posterio r medial distraction of the distal fracture fragment. There is no malalignment or loosening identifie d within the left total hip replacement. Heterotopic ossification is noted adjacent left greater troc hanter. There is no evidence of hardware loosening within the left knee arthroplasty. Impression: Obliquely oriented posteromedially displaced fracture of the distal femoral diaphysis. Reported By:
[2017-03-08] MEDS: NORCO 10/325 TAB PO PRN (18:01)
[2017-03-08] MEDS: BENADRYL INJ 50 MG VIAL IV PRN (19:13)
[2017-03-09] MEDS: DUONEB 0.5 MG/3 MG NEB SCH ×6 (01:29→20:18)
[2017-03-09 05:29] LABS: ALANINE AMINOTRANSFERASE 16 Units/L (12-78); ALBUMIN 2.1 g/dL (3.4-5.0); ALKALINE PHOSPHATASE 57 Units/L (46-116); ASPARTATE AMINO TRANSFERASE 24 Units/L (15-37); BLOOD UREA NITROGEN 21 mg/dL (7-18); CALCIUM 8.2 mg/dL (8.5-10.1); CARBON DIOXIDE 28.1 mmol/L (21-32); CHLORIDE 108 mmol/L (98-107); COR CA(FOR HYPOALB) 9.7 mg/dL (8.5-10.1); CREATININE 1.23 mg/dL (0.55-1.02); SODIUM 142 mmol/L (136-145); eGFR BLACK RACES 53 (>60); eGFR NON BLACK RACES 44 (>60)
[2017-03-09] MEDS: NS 1000 ML 1,000 ML IV SCH ×3 (05:53→21:52)
[2017-03-09 06:16] LABS: BASOPHILS # (AUTO) 0.1 X10^3/uL (0.0-0.1); BASOPHILS % (AUTO) 0.2 % (0.2-1.0); EOSINOPHILS # (AUTO) 0.2 x10^3/uL (0.0-0.2); EOSINOPHILS % (AUTO) 0.9 % (0.9-2.9); HEMATOCRIT 24.7 % (36.0-47.0); HEMOGLOBIN 8.4 g/dL (12.0-16.0); LYMPHOCYTES # (AUTO) 1.1 X10^3/uL (1.3-2.9); LYMPHOCYTES % (AUTO) 4.7 % (21.0-51.0); MEAN CORPUSCULAR HEMOGLOBIN 30.7 pg (27.0-34.0); MEAN CORPUSCULAR HGB CONC 33.9 g/dL (33.0-35.0); MEAN CORPUSCULAR VOLUME 90.6 fL (80.0-100.0); MEAN PLATELET VOLUME 7.8 fL (7.4-11.0); MONOCYTES # (AUTO) 1.6 x10^3/uL (0.3-0.8); MONOCYTES % (AUTO) 7.1 % (0.0-13.0); NEUTROPHILS % (AUTO) 87.1 % (42.0-75.0); PLATELET COUNT 242 X10^3/uL (150.0-450.0); RED BLOOD COUNT 2.73 X10^6/uL (3.5-5.4)
[2017-03-09 06:57] LABS: BAND NEUTROPHILS % 3 % (0-10); PLATELET MORPHOLOGY COMMENT NORMAL (NORMAL)
[2017-03-09] MEDS ORDERED: AMLODIPINE BESYLATE PO SCH (09:00)
[2017-03-09] MEDS ORDERED: NS 1000 ML 0 ML ONE (09:29)
[2017-03-09] MEDS ORDERED: ANCEF VIAL 1 GM ONE (09:30)
[2017-03-09] MEDS ORDERED: NS 50 ML IV + SPIKE MINIBAG* 50 ML IV ONE (09:30)
[2017-03-09] MEDS ORDERED: LR 1000 ML IV 1,000 ML IV ONE (09:37)
[2017-03-09] MEDS: NORVASC TAB 5 MG PO SCH (09:58)
[2017-03-09] MEDS: LEVAQUIN PREMIX IV 500 MG 500 MG/100 ML BAG IV SCH (09:58)
[2017-03-09] MEDS: KENALOG CREAM TOP SCH ×2 (09:58→21:52)
[2017-03-09] MEDS: ZITHROMAX INJ 500 MG VIAL 250 MG in NS 250 ML IV 250 ML IV SCH (09:58)
[2017-03-09] MEDS: CARDIZEM CD 240 MG PO SCH (09:59)
[2017-03-09] MEDS ORDERED: FENTANYL INJ 250 mcg ONE (10:05)
[2017-03-09] MEDS ORDERED: BACITRACIN VIAL ONE (10:15)
[2017-03-09] MEDS ORDERED: NS IRRIGATION 3000 ML 3,000 ML with BACITRACIN VIAL 50,000 UNT, POLYMYXIN B SULFATE 500... IR ONE ×6 (10:30)
[2017-03-09] MEDS ORDERED: BACITRACIN VIAL IM ONE ×2 (10:30)
[2017-03-09] MEDS ORDERED: NS IRRIGATION 3000 ML 3,000 ML with BACITRACIN VIAL 50,000 UNT IR ONE ×4 (10:30)
[2017-03-09] MEDS ORDERED: NS IRRIGATION 1000 ML 1,000 ML with BACITRACIN VIAL 50,000 UNT IR ONE ×2 (10:30)
[2017-03-09] MEDS ORDERED: POLYMYXIN B SULFATE IR ONE ×3 (10:30)
[2017-03-09] MEDS ORDERED: NS 500 ML IV 500 ML IV ONE (11:15)
[2017-03-09] MEDS ORDERED: NS 1000 ML 1,000 ML ONE (12:56)
[2017-03-09] MEDS ORDERED: BACTROBAN OINT ONE (13:02)
[2017-03-09] MEDS ORDERED: NS IRRIGATION 1000 ML 1,000 ML with BACITRACIN VIAL 50,000 UNT, POLYMYXIN B SULFATE 500... IR ONE ×3 (13:24)
--- NOTE | 2017-03-09 15:26 | RAD ---
HISTORY: Left femoral fracture. Comparison: None. EXAM: Single lateral view of the femur. Findings: The intraoperative radiographic exam demonstrates near anatomic alignment of femur following ORIF fix ation of a femoral fracture with uncomplicated TKA also observed in place. No gross bony complication or periprosthetic fracture is seen. Surgical sponges are seen posteriorly and anteriorly which is p robably known. However, correlation with postoperative radiographic imaging will be needed to exclude the possibility of retained foreign body in this clinical setting. No other gross bony complications are seen. Impression: As above. Reported By:
[2017-03-09] MEDS ORDERED: DILAUDID INJ ONE (15:54)
[2017-03-09] MEDS ORDERED: ROBINUL ONE (16:31)
[2017-03-09] MEDS ORDERED: NORCURON INJ 10 MG VIAL ONE (16:31)
[2017-03-09] MEDS ORDERED: VERSED ONE (16:31)
[2017-03-09] MEDS ORDERED: EPHEDRINE SULFATE INJ ONE (16:31)
[2017-03-09] MEDS ORDERED: ZOFRAN INJ 4 MG VIAL ONE (16:31)
[2017-03-09] MEDS ORDERED: SUPRANE IN ONE (16:31)
[2017-03-09] MEDS ORDERED: DIPRIVAN VIAL ONE (16:31)
[2017-03-09] MEDS ORDERED: NEOSTIGMINE INJ ONE (16:31)
[2017-03-09] MEDS ORDERED: XYLOCAINE 2 % (PLAIN) ONE (16:31)
[2017-03-09] MEDS ORDERED: NEO-SYNEPHRINE INJ ONE (16:31)
[2017-03-09] MEDS ORDERED: QUELICIN (OR ANECTINE) ONE (16:31)
[2017-03-09] MEDS ORDERED: DILAUDID INJ IVP PRN (17:00)
[2017-03-09] MEDS ORDERED: PHENERGAN INJ 25 MG IVP PRN (17:00)
[2017-03-09] MEDS ORDERED: ZOFRAN INJ 4 MG VIAL IVP PRN (17:00)
[2017-03-09] MEDS ORDERED: BENADRYL INJ 50 MG VIAL IVP PRN (17:00)
--- NOTE | 2017-03-09 17:23 | DR.CONSULT ---
Consult - Consultation for Day of: Date: 03/08/17 (thanks for consult) - Chief Complaint Chief Complaint: left knee hiro prosthetic fracture. fall and fractured left femur. - Allergies Allergies/Adverse Reactions: Allergies Allergy/AdvReac Type Severity Reaction Status Date / Time codeine Allergy Verified 03/08/17 02:28 Penicillins Allergy Verified 03/08/17 02:28 Sulfa (Sulfonamide Allergy Verified 03/08/17 02:28 Antibiotics) [SULFA] - Past Medical History Past Medical History: GERD, Hypertension - Past Surgical History Surgical History: Hysterectomy, Mastectomy, Ortho Surgery - Family History Family Medical History: Cancer - Social History Does patient currently use any type of tobacco product: No Have you used tobacco products in the last 12 months: No Type of Tobacco Use: None Does any household member use tobacco: No Alcohol Use: None Drug Use: None - Physical Exam Vital Signs: Temperature 97.9 F Pulse Rate [Left Radial] 118 Pulse Rate 123 Respiratory Rate 17 Blood Pressure [Right Arm] 145/58 Blood Pressure 182/98 O2 Sat by Pulse Oximetry 95 Musculoskeletal: Left, Swelling, Tender, Deformity, Instability, Crepitance - Plan Plan: ORIF left femur
--- NOTE | 2017-03-09 17:55 | RAD ---
History: Postop left femur internal fixation of distal fracture Study: Four views of the left femur, AP and lateral Comparison: Today at 2:36 p.m. Findings: There is a side plate and multiple screws in sutures reducing an oblique fracture of the di stal femoral diaphysis in near anatomical alignment. There is an unchanged total hip and knee joint p rostheses. There are surgical drains in place. Impression: Satisfactory fixation of the distal femoral diaphyseal fracture Reported By:
[2017-03-09] MEDS: VANCOMYCIN HCL 500 MG VIAL 500 MG in NS 100 ML IV + SPIKE MINIBAG* 100 ML IV SCH (21:52)
[2017-03-09] MEDS: BENADRYL INJ 50 MG VIAL IV PRN (21:56)
[2017-03-10] MEDS: DUONEB 0.5 MG/3 MG NEB SCH ×6 (00:14→20:03)
[2017-03-10] MEDS: NS 1000 ML 1,000 ML IV SCH ×3 (06:13→21:45)
[2017-03-10 06:29] LABS: BLOOD UREA NITROGEN 30 mg/dL (7-18); CALCIUM 7.7 mg/dL (8.5-10.1); CARBON DIOXIDE 21.9 mmol/L (21-32); CHLORIDE 111 mmol/L (98-107); CREATININE 1.68 mg/dL (0.55-1.02); SODIUM 142 mmol/L (136-145); eGFR BLACK RACES 37 (>60); eGFR NON BLACK RACES 31 (>60)
[2017-03-10 06:39] LABS: BASOPHILS # (AUTO) 0.1 X10^3/uL (0.0-0.1); BASOPHILS % (AUTO) 0.5 % (0.2-1.0); EOSINOPHILS # (AUTO) 0.1 x10^3/uL (0.0-0.2); EOSINOPHILS % (AUTO) 0.2 % (0.9-2.9); HEMATOCRIT 24.1 % (36.0-47.0); HEMOGLOBIN 8.3 g/dL (12.0-16.0); LYMPHOCYTES # (AUTO) 1.4 X10^3/uL (1.3-2.9); LYMPHOCYTES % (AUTO) 5.1 % (21.0-51.0); MEAN CORPUSCULAR HEMOGLOBIN 30.1 pg (27.0-34.0); MEAN CORPUSCULAR HGB CONC 34.6 g/dL (33.0-35.0); MEAN CORPUSCULAR VOLUME 87.1 fL (80.0-100.0); MEAN PLATELET VOLUME 8.6 fL (7.4-11.0); MONOCYTES % (AUTO) 7.3 % (0.0-13.0); NEUTROPHILS % (AUTO) 86.9 % (42.0-75.0); PLATELET COUNT 199 X10^3/uL (150.0-450.0); RED BLOOD COUNT 2.77 X10^6/uL (3.5-5.4); RED CELL DISTRIBUTION WIDTH 15.3 % (11.6-16.5)
[2017-03-10 06:54] LABS: WHITE BLOOD COUNT 27.6 X10^3/uL (3.6-10.0)
[2017-03-10 07:23] LABS: BAND NEUTROPHILS % 15 % (0-10); METAMYELOCYTES % 1; PLATELET MORPHOLOGY COMMENT NORMAL (NORMAL)
[2017-03-10] MEDS: KENALOG CREAM TOP SCH ×2 (09:00→21:46)
[2017-03-10] MEDS: CARDIZEM CD 240 MG PO SCH (09:48)
[2017-03-10] MEDS: NORVASC TAB 5 MG PO SCH (09:48)
[2017-03-10] MEDS: LEVAQUIN PREMIX IV 500 MG 500 MG/100 ML BAG IV SCH (09:49)
[2017-03-10] MEDS: ZITHROMAX INJ 500 MG VIAL 250 MG in NS 250 ML IV 250 ML IV SCH (09:49)
[2017-03-10] MEDS: VANCOMYCIN HCL 500 MG VIAL 500 MG in NS 100 ML IV + SPIKE MINIBAG* 100 ML IV SCH (09:49)
[2017-03-10] MEDS: ZOFRAN INJ 4 MG VIAL IVP PRN (13:59)
[2017-03-10] MEDS: ZYVOX TAB 600 MG PO SCH (21:46)
[2017-03-10] MEDS: MORPHINE SULFATE INJ 4 MG IVP PRN (21:46)
[2017-03-11] MEDS: DUONEB 0.5 MG/3 MG NEB SCH ×6 (01:28→20:40)
[2017-03-11 06:09] LABS: BASOPHILS # (AUTO) 0.1 X10^3/uL (0.0-0.1); BASOPHILS % (AUTO) 0.3 % (0.2-1.0); EOSINOPHILS % (AUTO) 0.1 % (0.9-2.9); HEMATOCRIT 22.6 % (36.0-47.0); HEMOGLOBIN 7.7 g/dL (12.0-16.0); LYMPHOCYTES # (AUTO) 1.1 X10^3/uL (1.3-2.9); LYMPHOCYTES % (AUTO) 3.4 % (21.0-51.0); MEAN CORPUSCULAR HEMOGLOBIN 29.6 pg (27.0-34.0); MEAN CORPUSCULAR HGB CONC 34.1 g/dL (33.0-35.0); MEAN CORPUSCULAR VOLUME 86.8 fL (80.0-100.0); MEAN PLATELET VOLUME 8.2 fL (7.4-11.0); MONOCYTES # (AUTO) 2.2 x10^3/uL (0.3-0.8); MONOCYTES % (AUTO) 6.5 % (0.0-13.0); NEUTROPHILS # (AUTO) 29.9 x10^3/uL (2.2-4.8); NEUTROPHILS % (AUTO) 89.7 % (42.0-75.0); PLATELET COUNT 243 X10^3/uL (150.0-450.0); RED BLOOD COUNT 2.61 X10^6/uL (3.5-5.4); RED CELL DISTRIBUTION WIDTH 14.9 % (11.6-16.5)
[2017-03-11] MEDS: NS 1000 ML 1,000 ML IV SCH ×2 (06:24→11:49)
[2017-03-11 06:31] LABS: BLOOD UREA NITROGEN 34 mg/dL (7-18); CARBON DIOXIDE 22.6 mmol/L (21-32); CHLORIDE 111 mmol/L (98-107); CREATININE 1.55 mg/dL (0.55-1.02); SODIUM 142 mmol/L (136-145); eGFR BLACK RACES 41 (>60); eGFR NON BLACK RACES 34 (>60)
[2017-03-11 06:36] LABS: WHITE BLOOD COUNT 33.3 X10^3/uL (3.6-10.0)
[2017-03-11 07:10] LABS: BAND NEUTROPHILS % 7 % (0-10); HYPOCHROMASIA 1+; PLATELET MORPHOLOGY COMMENT NORMAL (NORMAL)
[2017-03-11] MEDS ORDERED: ATARAX TAB 10 MG PO PRN (07:17)
--- NOTE | 2017-03-11 07:38 | RAD ---
Chest AP portable Indication: Cough and leukocytosis. Comparison: 02/1917. Findings: There is cardiomegaly without pneumothorax. Small left effusion suspected. Left greater savanna n right shoulder degenerative changes noted. No consolidation demonstrated. Vascular calcifications n oted. Impression: Cardiomegaly with developing left effusion suspected. Followup with PA and lateral chest. Reported By:
[2017-03-11] MEDS ORDERED: SINGULAIR TAB 10 MG PO SCH (08:00)
[2017-03-11 08:32] LABS: LACTIC ACID 1.3 mmol/L (0.4-2.0)
[2017-03-11] MEDS: ZOFRAN INJ 4 MG VIAL IVP PRN ×2 (08:33→20:59)
[2017-03-11 08:35] LABS: C-REACTIVE PROTEIN 184.7 mg/L (0-3.0); FREE T4 (FREE THYROXINE) 1.31 ng/dL (0.76-1.46); TSH (3RD GENERATION) 3.539 uIU/mL (0.358-3.74)
[2017-03-11] MEDS ORDERED: NS 500 ML IV 500 ML IV ONE ×2 (08:59→09:57)
[2017-03-11] MEDS: KENALOG CREAM TOP SCH ×2 (09:30→22:02)
--- NOTE | 2017-03-11 09:46 | PCM.PROG ---
Progress Note - Progress Note for Day of Date: 03/10/17 (POD 1) - Subjective Subjective: doing well. she has dementia and has problems following instructions. her post op xr looks good. drain 80 cc/2 4hrs. drssing clean and dry. we did python architect her knee and hip with out much pain.has been having some issue with reaction to vancomycin. plan-. 1.WBAT with PT. 2. DRAIN REMOVAL TOMORROW. 3. D/C VANCOMYCIN. did discuss the situation with the family and also reminded them that she will need to rehab and it may take months, also keepiing in mind her dementia which makes it much more challenging. family understands that. - Past Medical Family Social History Allergies: Allergies Cephalosporins Allergy (Verified 03/10/17 15:36) codeine Allergy (Verified 03/08/17 02:28) Penicillins Allergy (Verified 03/08/17 02:28) Sulfa (Sulfonamide Antibiotics) [SULFA] Allergy (Verified 03/08/17 02:28) - Vital Signs and I&O's Vital Signs: Temperature 99.0 F Pulse Rate [Right Posterior 103 Tibial] Pulse Rate [Left Radial] 106 Pulse Rate 107 Respiratory Rate 20 Blood Pressure [Right Femoral 142/63 Artery] Blood Pressure [Right Arm] 141/62 Blood Pressure 133/89 O2 Sat by Pulse Oximetry 97 Intake and Output: Intake & Output 03/08/17 03/09/17 03/10/17 03/11/17 11:59 11:59 11:59 11:59 Intake Total 0 1750 1329 1170 Output Total 200 478 7915 780 Balance -725 1200 -6006 390 - Physical Exam Oriented: Normal Eyes: Normal Ear: Normal Nose: Normal Throat: Normal Cardiovascular: Normal : Normal Auscultation: Bowel Sounds: Normal Tenderness: Normal Skin: Rash, Maculopapular Musculoskeletal: Left, Thigh (dressing clean and dry. drains present. ), Swelling, Tender Psychiatric: Anxiety Mood Description: Calm Speech Pattern: Clear, Appropriate - Laboratory and Diagnostics Result Diagrams: 03/11/17 04:25 03/11/17 04:25 Labs: 03/08/17 12:00 Blood Blood Culture - Preliminary 03/08/17 12:20 Blood Blood Culture - Preliminary 03/08/17 14:14 Sputum - Expectorated Sputum Sputum Culture - Final 03/08/17 14:14 Sputum - Expectorated Sputum - Final 03/08/17 04:47 Urine,Catheterized Urine Culture - Final Laboratory WBC 33.3 X10^3/uL (3.6-10.0) H* 03/11/17 04:25 RBC 2.61 X10^6/uL (3.5-5.4) L 03/11/17 04:25 Hgb 7.7 g/dL (12.0-16.0) L 03/11/17 04:25 Hct 22.6 % (36.0-47.0) L 03/11/17 04:25 MCV 86.8 fL (80.0-100.0) 03/11/17 04:25 MCH 29.6 pg (27.0-34.0) 03/11/17 04:25 MCHC 34.1 g/dL (33.0-35.0) 03/11/17 04:25 RDW 14.9 % (11.6-16.5) 03/11/17 04:25 Plt Count 243 X10^3/uL (150.0-450.0) 03/11/17 04:25 Plt Count Comment Adequate (ADEQUATE) 03/11/17 04:25 MPV 8.2 fL (7.4-11.0) 03/11/17 04:25 Neut % 89.7 % (42.0-75.0) H 03/11/17 04:25 Lymph % 3.4 % (21.0-51.0) L 03/11/17 04:25 [place] % 6.5 % (0.0-13.0) 03/11/17 04:25 Eos % 0.1 % (0.9-2.9) L 03/11/17 04:25 Baso % 0.3 % (0.2-1.0) 03/11/17 04:25 Neut # 29.9 x10^3/uL (2.2-4.8) H 03/11/17 04:25 Lymph # 1.1 X10^3/uL (1.3-2.9) L 03/11/17 04:25 [place] # 2.2 x10^3/uL (0.3-0.8) H 03/11/17 04:25 Eos # 0.0 x10^3/uL (0.0-0.2) 03/11/17 04:25 Baso # 0.1 X10^3/uL (0.0-0.1) 03/11/17 04:25 Absolute Nucleated RBC 0.0 /100WBC 03/11/17 04:25 Total Counted 100 03/11/17 04:25 Neutrophils % (Manual) 83 % (39-76) H 03/11/17 04:25 Band Neutrophils % 7 % (0-10) 03/11/17 04:25 Lymphocytes % (Manual) 6 % (13-43) L 03/11/17 04:25 Monocytes % (Manual) 4 % (4-9) 03/11/17 04:25 Metamyelocytes % 1 03/10/17 04:40 Plt Morphology Comment Normal (NORMAL) 03/11/17 04:25 RBC Morphology Abnormal (NORMAL) A 03/11/17 04:25 Hypochromasia 1+ A 03/11/17 04:25 ESR 28 MM/HOUR (0-20) H 03/11/17 07:50 INR Target Range - 03/08/17 05:30 INR 1.10 (0.8-1.3) 03/08/17 05:30 PTT 28.2 SECONDS (22.9-36.5) 03/08/17 05:30 PTT Comment - 03/08/17 05:30 Sodium 142 mmol/L (136-145) 03/11/17 04:25 Corrected Sodium TNP 03/11/17 04:25 Potassium 3.9 mmol/L (3.5-5.1) 03/11/17 04:25 Chloride 111 mmol/L (98-107) H 03/11/17 04:25 Carbon Dioxide 22.6 mmol/L (21-32) 03/11/17 04:25 BUN 34 mg/dL (7-18) H 03/11/17 04:25 Creatinine 1.55 mg/dL (0.55-1.02) H 03/11/17 04:25 Est GFR (MDRD) Af Amer 41 (>60) L 03/11/17 04:25 Est GFR (MDRD) Non-Af 34 (>60) L 03/11/17 04:25 Glucose 104 mg/dL (65-99) H 03/11/17 04:25 Lactic Acid 1.3 mmol/L (0.4-2.0) 03/11/17 07:50 Calcium 8.0 mg/dL (8.5-10.1) L 03/11/17 04:25 Corrected Calcium 9.7 mg/dL (8.5-10.1) 03/09/17 04:30 Total Bilirubin 0.40 mg/dL (0.2-1.0) 03/09/17 04:30 AST 24 Units/L (15-37) 03/09/17 04:30 ALT 16 Units/L (12-78) 03/09/17 04:30 Alkaline Phosphatase 57 Units/L (46-116) 03/09/17 04:30 C-Reactive Protein 184.70 mg/L (0-3.0) H 03/11/17 07:50 Total Protein 5.0 g/dL (6.4-8.2) L 03/09/17 04:30 Albumin 2.1 g/dL (3.4-5.0) L 03/09/17 04:30 Globulin 2.9 g/dL (2.5-4.5) 03/09/17 04:30 Albumin/Globulin Ratio 0.7 Ratio (1.1-2.1) L 03/09/17 04:30 Free T4 1.31 ng/dL (0.76-1.46) 03/11/17 07:50 TSH 3rd Generation 3.539 uIU/mL (0.358-3.74) 03/11/17 07:50 Specimen Type Catherized urine 03/08/17 04:47 Urine Color Yellow (YELLOW) 03/08/17 04:47 Urine Appearance Clear (CLEAR) 03/08/17 04:47 Urine pH 7.0 (5.0 - 8.0) 03/08/17 04:47 Ur Specific [place] 1.010 (1.000-1.030) 03/08/17 04:47 Urine Protein Negative (NEGATIVE) 03/08/17 04:47 Urine Glucose (UA) Negative (NEGATIVE) 03/08/17 04:47 Urine Ketones Negative (NEGATIVE) 03/08/17 04:47 Urine Occult Blood 1+ (NEGATIVE) 03/08/17 04:47 Urine Nitrite Negative (NEGATIVE) 03/08/17 04:47 Urine Bilirubin Negative (NEGATIVE) 03/08/17 04:47 Urine Urobilinogen Normal (NORMAL) 03/08/17 04:47 Ur Leukocyte Esterase Negative (NEGATIVE) 03/08/17 04:47 Urine RBC 3-5 /HPF (NEGATIVE) 03/08/17 04:47 Urine WBC 0-3 /HPF (NEGATIVE) 03/08/17 04:47 Ur Squamous Epith Cells Rare /HPF (NEGATIVE) 03/08/17 04:47 Urine Bacteria Trace /HPF (NEGATIVE) 03/08/17 04:47 Ur Culture Indicated? Yes/culture set up 03/08/17 04:47 Blood Type O POSITIVE 03/08/17 05:30 Antibody Screen Negative 03/08/17 05:30 Crossmatch See Detail 03/08/17 05:30 - Plan (1) Periprosthetic supracondylar fracture of femur Status: Acute Plan: WEIGHT BEARING TOLERATED WITH PT. KNEE AND HIP ROM. DC VANCOMYCIN.
[2017-03-11] MEDS ORDERED: LASIX IVP SCH (10:00)
[2017-03-11] MEDS: NORVASC TAB 5 MG PO SCH (10:31)
[2017-03-11] MEDS: CARDIZEM CD 240 MG PO SCH (10:31)
[2017-03-11] MEDS: ZYVOX TAB 600 MG PO SCH (10:31)
[2017-03-11] MEDS: LEVAQUIN PREMIX IV 500 MG 500 MG/100 ML BAG IV SCH (13:15)
[2017-03-11] MEDS ORDERED: LASIX ONE (13:16)
[2017-03-11] MEDS: LASIX IVP ONE ×2 (13:21→15:25)
[2017-03-11 15:22] LABS: BASOPHILS % (AUTO) 0 % (0.2-1.0); EOSINOPHILS % (AUTO) 0.1 % (0.9-2.9); HEMATOCRIT 33.5 % (36.0-47.0); HEMOGLOBIN 11.3 g/dL (12.0-16.0); LYMPHOCYTES # (AUTO) 0.8 X10^3/uL (1.3-2.9); LYMPHOCYTES % (AUTO) 1.9 % (21.0-51.0); MEAN CORPUSCULAR HEMOGLOBIN 29.1 pg (27.0-34.0); MEAN CORPUSCULAR HGB CONC 33.7 g/dL (33.0-35.0); MEAN CORPUSCULAR VOLUME 86.3 fL (80.0-100.0); MEAN PLATELET VOLUME 7.4 fL (7.4-11.0); MONOCYTES # (AUTO) 1.3 x10^3/uL (0.3-0.8); MONOCYTES % (AUTO) 3.2 % (0.0-13.0); NEUTROPHILS # (AUTO) 40.2 x10^3/uL (2.2-4.8); NEUTROPHILS % (AUTO) 94.8 % (42.0-75.0); PLATELET COUNT 296 X10^3/uL (150.0-450.0); RED BLOOD COUNT 3.88 X10^6/uL (3.5-5.4)
[2017-03-11 16:24] LABS: PLATELET MORPHOLOGY COMMENT NORMAL (NORMAL)
[2017-03-11 16:25] LABS: ANISOCYTOSIS SLIGHT; BAND NEUTROPHILS % 7 % (0-10); POIKILOCYTOSIS SLIGHT
[2017-03-11 16:28] LABS: WHITE BLOOD COUNT 42.4 X10^3/uL (3.6-10.0)
[2017-03-11] MEDS: LOVENOX INJ 40 MG SYR SC SCH (17:39)
[2017-03-11] MEDS ORDERED: NEXTERONE IV 150 MG PREMIX* 100 ML IV ONE (18:33)
[2017-03-11] MEDS ORDERED: NEXTERONE IV 360 MG PREMIX* 200 ML IV PRN (18:54)
[2017-03-11] MEDS: LANOXIN INJ IVP SCH (19:09)
[2017-03-11 19:15] LABS: HEMATOCRIT 34.6 % (36.0-47.0); HEMOGLOBIN 11.8 g/dL (12.0-16.0)
[2017-03-11] MEDS: LOPRESSOR TAB 25 MG PO SCH ×2 (19:28→21:00)
--- NOTE | 2017-03-11 19:59 | RAD ---
Chest, one view Indication: Leukocytosis Comparison: March 11, 2017 Findings: There is stable cardiomegaly without evidence of congestive failure. Small left pleural eff usion and adjacent basilar opacities persist. No new focal infiltrate or effusion is identified. Dege nerative changes of the left greater than right shoulders again noted. Osseous thorax is otherwise un remarkable. Impression: Stable cardiomegaly and left effusion. Otherwise, no new abnormality since earlier today. Reported By:
[2017-03-11] MEDS: BENADRYL INJ 50 MG VIAL IV PRN (20:01)
--- NOTE | 2017-03-11 20:05 | US ---
Ultrasound right forearm Indication: Edema and redness of the right forearm Comparison: None Technique: Multiple grayscale and color Doppler images of the right forearm were obtained. Findings/Impression: There is moderate subcutaneous edema throughout the right forearm with mild asso ciated hyperemia. Clinical correlation for infection (cellulitis) is recommended. No discrete drainab le fluid collection to suggest abscess identified. Reported By:
[2017-03-11] MEDS: NEXTERONE IV 360 MG PREMIX* 200 ML IV PRN (20:20)
[2017-03-11] MEDS ORDERED: SOLU-Medrol 125 MG VIAL IVP ONE (20:54)
[2017-03-11] MEDS ORDERED: CONSULT PHARMACY - ANTIBIOTIC XX SCH (21:00)
[2017-03-11] MEDS: ZYVOX 600MG IV 600 MG/300 ML BAG IV SCH (22:01)
[2017-03-12] MEDS: DUONEB 0.5 MG/3 MG NEB SCH ×6 (01:46→20:17)
[2017-03-12] MEDS ORDERED: NEXTERONE IV 360 MG PREMIX* 200 ML IV ONE (05:57)
[2017-03-12 06:08] LABS: BASOPHILS % (AUTO) 0.1 % (0.2-1.0); HEMATOCRIT 29.4 % (36.0-47.0); HEMOGLOBIN 10.2 g/dL (12.0-16.0); LYMPHOCYTES # (AUTO) 0.7 X10^3/uL (1.3-2.9); MEAN CORPUSCULAR HEMOGLOBIN 29.8 pg (27.0-34.0); MEAN CORPUSCULAR HGB CONC 34.7 g/dL (33.0-35.0); MEAN CORPUSCULAR VOLUME 85.8 fL (80.0-100.0); MEAN PLATELET VOLUME 7.7 fL (7.4-11.0); MONOCYTES # (AUTO) 0.5 x10^3/uL (0.3-0.8); MONOCYTES % (AUTO) 1.4 % (0.0-13.0); NEUTROPHILS # (AUTO) 33.8 x10^3/uL (2.2-4.8); NEUTROPHILS % (AUTO) 96.5 % (42.0-75.0); PLATELET COUNT 296 X10^3/uL (150.0-450.0); RED BLOOD COUNT 3.43 X10^6/uL (3.5-5.4)
[2017-03-12 06:23] LABS: PLATELET MORPHOLOGY COMMENT NORMAL (NORMAL)
[2017-03-12] MEDS: NEXTERONE IV 360 MG PREMIX* 200 ML IV PRN ×2 (06:25→18:28)
[2017-03-12 06:26] LABS: CALCIUM 8.7 mg/dL (8.5-10.1); CARBON DIOXIDE 23.8 mmol/L (21-32); COR CA(FOR HYPOALB) 10.3 mg/dL (8.5-10.1); CREATININE 1.28 mg/dL (0.55-1.02); DIGOXIN 0.62 ng/mL (0.9-2); TOTAL PROTEIN 5.2 g/dL (6.4-8.2)
[2017-03-12] MEDS ORDERED: LANOXIN PO ONE (09:00)
[2017-03-12] MEDS: LOVENOX INJ 40 MG SYR SC SCH (09:16)
[2017-03-12] MEDS: LOPRESSOR TAB 25 MG PO SCH ×2 (09:17→20:34)
[2017-03-12] MEDS: ZYVOX 600MG IV 600 MG/300 ML BAG IV SCH ×2 (09:17→20:33)
[2017-03-12] MEDS: NORVASC TAB 5 MG PO SCH (09:17)
[2017-03-12] MEDS: KENALOG CREAM TOP SCH ×2 (09:18→20:34)
--- NOTE | 2017-03-12 11:16 | OR.GENERIC ---
OP Note Disposition/Condition: Pt. tolerated procedure without difficulty. Extubated in the OR and taken to PACU in stable condition.
--- NOTE | 2017-03-12 11:30 | OR.IMMED ---
Immediate Post-Op Note - Immediate Post-Op Note Pre-Op Diagnosis: Poor peripheral IV access Post-Op Diagnosis: Poor peripheral IV access Procedure: Right internal jugular central line placement Description of Procedure: 86 y/o female with a history of dementia, left breast cancer, UTI, and recent left femur fracture. Patient underwent an ORIF left femur on 03/09/17. She requires IV access for antibiotics and fluids. Discussed rationale and procedure for central line placement including risks, benefits, and alternatives with her daughter, Mery Soliman, who is her POA, by phone. Informed verbal consent obtained prior to proceeding. Procedure performed at the bedside in the ICU. Patient placed in Trendelenberg position with her right arm at her side. Right neck and upper chest prepped and draped in the usual sterile fashion with chloraprep. Local anesthesia with 1% lidocaine utilized throughout the procedure. Multiple attempts to access the right subclavian vein were not successful. Sonosite utilized to localize the right internal jugular vein. Right internal jugular vein accessed percutaneously. Guidewire advanced without resistance. Skin incision made at site of guidewire with a scalpel. Dilator passed and removed. Triple lumen catheter threaded over the guidewire which was then removed. All 3 ports were accessed. Good blood return x 3. Easily flushed with sterile saline x 3. Catheter secured to the skin at the 16 cm geo. Biopatch and dry sterile dressing applied. Patient tolerated the procedure well. Post-procedure CXR obtained. Catheter appears to be in position with no hemo or pneumothorax on my review. Surgeon/Business Development Recruiter: Dr. Lanny Dominguez Findings: Post-procedure CXR reviewed. Central line appears to be in position. No hemo or pneumothorax on my review. Specimens Removed: None Estimated Blood Loss: Minimal, < 5 cc Complications: None Condition: Stable Final Diagnosis: As above
--- NOTE | 2017-03-12 11:38 | RAD ---
HISTORY: Line placement. Study: Single view of the chest. Comparison: 03/11/2017 Findings: Cardiomegaly is unchanged No focal consolidations, pleural effusions or pneumothorax. Osseous structu res demonstrate no acute abnormality. A right central catheter terminates over the expected area of the SVC. IMPRESSION: 1. No acute cardiopulmonary process. 2. A right central catheter terminating over the expected area of the SVC. Reported By:
[2017-03-12] MEDS: ZYVOX TAB 600 MG PO SCH (15:11)
[2017-03-12] MEDS: LANOXIN INJ IVP SCH (15:11)
[2017-03-12] MEDS: NS 1000 ML 1,000 ML IV SCH (15:18)
[2017-03-12] MEDS: DIFLUCAN PO SCH (16:30)
[2017-03-12] MEDS: NYSTATIN SUSP PO SCH ×2 (16:48→21:45)
[2017-03-12] MEDS: NORCO 10/325 TAB PO PRN (18:27)
[2017-03-12] MEDS ORDERED: LASIX IVP ONE (19:30)
[2017-03-12] MEDS ORDERED: NS 250 ML IV 250 ML IV ONE (21:04)
[2017-03-12] MEDS: MORPHINE SULFATE INJ 4 MG IVP PRN (21:31)
[2017-03-13] MEDS: DUONEB 0.5 MG/3 MG NEB SCH ×6 (01:24→20:26)
[2017-03-13] MEDS ORDERED: NS 250 ML IV 250 ML IV ONE (05:30)
[2017-03-13 06:01] LABS: BASOPHILS # (AUTO) 0.1 X10^3/uL (0.0-0.1); BASOPHILS % (AUTO) 0.1 % (0.2-1.0); HEMATOCRIT 27.5 % (36.0-47.0); HEMOGLOBIN 9.4 g/dL (12.0-16.0); LYMPHOCYTES # (AUTO) 1.1 X10^3/uL (1.3-2.9); MEAN CORPUSCULAR HEMOGLOBIN 29.3 pg (27.0-34.0); MEAN CORPUSCULAR VOLUME 86.1 fL (80.0-100.0); MEAN PLATELET VOLUME 7.2 fL (7.4-11.0); MONOCYTES # (AUTO) 1.9 x10^3/uL (0.3-0.8); MONOCYTES % (AUTO) 5.4 % (0.0-13.0); NEUTROPHILS # (AUTO) 32.4 x10^3/uL (2.2-4.8); NEUTROPHILS % (AUTO) 91.5 % (42.0-75.0); PLATELET COUNT 282 X10^3/uL (150.0-450.0); RED CELL DISTRIBUTION WIDTH 14.5 % (11.6-16.5)
[2017-03-13] MEDS: NYSTATIN SUSP PO SCH ×3 (06:08→21:50)
[2017-03-13 06:14] LABS: WHITE BLOOD COUNT 35.5 X10^3/uL (3.6-10.0)
[2017-03-13 06:21] LABS: BAND NEUTROPHILS % 1 % (0-10)
[2017-03-13 06:22] LABS: PLATELET MORPHOLOGY COMMENT NORMAL (NORMAL)
[2017-03-13 06:24] LABS: ALBUMIN 1.9 g/dL (3.4-5.0); CALCIUM 8.5 mg/dL (8.5-10.1); CARBON DIOXIDE 25.2 mmol/L (21-32); COR CA(FOR HYPOALB) 10.2 mg/dL (8.5-10.1); CREATININE 1.34 mg/dL (0.55-1.02)
[2017-03-13] MEDS ORDERED: CORDARONE TAB 200 MG ONE (06:58)
[2017-03-13] MEDS: ZYVOX 600MG IV 600 MG/300 ML BAG IV SCH ×2 (08:00→20:31)
[2017-03-13] MEDS: NS 1000 ML 1,000 ML IV SCH (08:00)
[2017-03-13] MEDS: DIFLUCAN PO SCH (09:48)
[2017-03-13] MEDS: LOVENOX INJ 40 MG SYR SC SCH (09:49)
[2017-03-13] MEDS: NORVASC TAB 5 MG PO SCH (09:49)
[2017-03-13] MEDS: LOPRESSOR TAB 25 MG PO SCH ×2 (09:49→20:33)
[2017-03-13] MEDS: CORDARONE TAB 200 MG PO SCH ×2 (09:51→20:33)
[2017-03-13] MEDS: KENALOG CREAM TOP SCH ×2 (09:56→20:34)
[2017-03-13] MEDS ORDERED: K-RIDER 10 MEQ/NS 100 ML 10 MEQ/100 ML BAG IV ONE (13:46)
[2017-03-13] MEDS ORDERED: NS 1000 ML 1,000 ML ONE (13:47)
[2017-03-13] MEDS ORDERED: K-DUR TAB 20 MEQ PO PRN (13:57)
[2017-03-13] MEDS ORDERED: POTASSIUM CHLORIDE LIQ 20 MEQ UDC PO PRN (13:57)
[2017-03-13] MEDS ORDERED: K-LYTE EFFERVESCENT PO PRN (13:57)
[2017-03-13] MEDS: K-RIDER 10 MEQ/NS 100 ML 10 MEQ/100 ML BAG IV PRN ×2 (14:13→15:16)
[2017-03-13] MEDS: MORPHINE SULFATE INJ 4 MG IVP PRN (20:31)
[2017-03-13] MEDS: ZOFRAN INJ 4 MG VIAL IVP PRN (20:31)
[2017-03-13] MEDS: RESTORIL CAP 15 MG PO PRN (20:34)
[2017-03-14] MEDS: DUONEB 0.5 MG/3 MG NEB SCH ×6 (01:40→21:06)
[2017-03-14 05:38] LABS: BASOPHILS # (AUTO) 0.1 X10^3/uL (0.0-0.1); BASOPHILS % (AUTO) 0.2 % (0.2-1.0); EOSINOPHILS # (AUTO) 0.1 x10^3/uL (0.0-0.2); EOSINOPHILS % (AUTO) 0.2 % (0.9-2.9); HEMATOCRIT 25.2 % (36.0-47.0); HEMOGLOBIN 8.7 g/dL (12.0-16.0); LYMPHOCYTES # (AUTO) 1.5 X10^3/uL (1.3-2.9); LYMPHOCYTES % (AUTO) 6.1 % (21.0-51.0); MEAN CORPUSCULAR HEMOGLOBIN 29.9 pg (27.0-34.0); MEAN CORPUSCULAR HGB CONC 34.5 g/dL (33.0-35.0); MEAN CORPUSCULAR VOLUME 86.5 fL (80.0-100.0); MEAN PLATELET VOLUME 7.1 fL (7.4-11.0); NEUTROPHILS # (AUTO) 21.4 x10^3/uL (2.2-4.8); NEUTROPHILS % (AUTO) 85.5 % (42.0-75.0); PLATELET COUNT 253 X10^3/uL (150.0-450.0); RED BLOOD COUNT 2.91 X10^6/uL (3.5-5.4); RED CELL DISTRIBUTION WIDTH 14.5 % (11.6-16.5)
[2017-03-14 05:50] LABS: ALANINE AMINOTRANSFERASE 20 Units/L (12-78); ALBUMIN 1.7 g/dL (3.4-5.0); ALKALINE PHOSPHATASE 41 Units/L (46-116); ASPARTATE AMINO TRANSFERASE 30 Units/L (15-37); BLOOD UREA NITROGEN 26 mg/dL (7-18); CALCIUM 8.2 mg/dL (8.5-10.1); CARBON DIOXIDE 25.9 mmol/L (21-32); CHLORIDE 108 mmol/L (98-107); SODIUM 141 mmol/L (136-145); TOTAL PROTEIN 4.4 g/dL (6.4-8.2); eGFR BLACK RACES > 60 (>60); eGFR NON BLACK RACES 50 (>60)
[2017-03-14 06:02] LABS: BAND NEUTROPHILS % 6 % (0-10); PLATELET MORPHOLOGY COMMENT NORMAL (NORMAL)
[2017-03-14] MEDS: LOVENOX INJ 40 MG SYR SC SCH (10:18)
[2017-03-14] MEDS: NORVASC TAB 5 MG PO SCH (10:20)
[2017-03-14] MEDS: LOPRESSOR TAB 25 MG PO SCH ×2 (10:20→20:34)
[2017-03-14] MEDS: NYSTATIN SUSP PO SCH ×2 (10:23→20:34)
[2017-03-14] MEDS: CORDARONE TAB 200 MG PO SCH ×2 (10:23→18:29)
[2017-03-14] MEDS: KENALOG CREAM TOP SCH ×2 (10:24→20:34)
[2017-03-14] MEDS: DIFLUCAN PO SCH (10:27)
[2017-03-14] MEDS: ZYVOX 600MG IV 600 MG/300 ML BAG IV SCH ×2 (10:28→20:33)
[2017-03-14] MEDS: NORCO 10/325 TAB PO PRN (11:36)
[2017-03-14] MEDS: ZOFRAN INJ 4 MG VIAL IVP PRN (11:37)
--- NOTE | 2017-03-14 15:24 | PCM.PROG ---
Progress Note - Progress Note for Day of Date: 03/14/17 - Subjective Subjective: doing well. dressing clean and dy. family by the side. had some medical issues and was shifted to ICU. now seems to be improving. her redness has come down. she is able to hold her leg up and bnd the knee. plan-. 1.WBAT with PT. 2. DRESSING CHANGE EVERY 5 DAYS. 3. SUTURE REMOVAL 3 WEEKS. 4. FOLLOW UP WITH ME IN OFFICE 3 WEEKS. 5.XR FULL LENGTH FEMUR BEFORE THE VISIT. did discuss the situation with the family and also reminded them that she will need to rehab and it may take months, also keepiing in mind her dementia which makes it much more challenging. family understands that. - Past Medical Family Social History Allergies: Allergies Cephalosporins Allergy (Verified 03/10/17 15:36) codeine Allergy (Verified 03/08/17 02:28) Penicillins Allergy (Verified 03/08/17 02:28) Sulfa (Sulfonamide Antibiotics) [SULFA] Allergy (Verified 03/08/17 02:28) vancomycin Allergy (Verified 03/14/17 11:34) RASH - Vital Signs and I&O's Vital Signs: Temperature 98.3 F Pulse Rate [Right Brachial] 105 Pulse Rate [Right Posterior 103 Tibial] Pulse Rate [Left Radial] 86 Pulse Rate 76 Respiratory Rate 24 Blood Pressure [Left Arm] 137/62 Blood Pressure [Right Femoral 142/63 Artery] Blood Pressure [Right Arm] 143/64 Blood Pressure 133/89 O2 Sat by Pulse Oximetry 98 Intake and Output: Intake & Output 03/12/17 03/13/17 03/14/17 03/15/17 11:59 11:59 11:59 11:59 Intake Total 927 1663 1801 Output Total 1900 1150 1800 Balance -973 513 1 - Physical Exam Oriented: Normal Eyes: Normal Ear: Normal Nose: Normal Throat: Normal Cardiovascular: Normal : Normal Auscultation: Bowel Sounds: Normal Tenderness: Normal Skin: Rash, Maculopapular Musculoskeletal: Left, Thigh (dressing clean and dry. drains present. ), Swelling, Tender Psychiatric: Anxiety Mood Description: Calm Speech Pattern: Clear, Appropriate - Laboratory and Diagnostics Result Diagrams: 03/14/17 04:50 03/14/17 04:50 Labs: 03/08/17 12:20 Blood Blood Culture - Final 03/08/17 12:00 Blood Blood Culture - Final 03/11/17 07:55 Blood Blood Culture - Preliminary 03/11/17 07:50 Blood Blood Culture - Preliminary 03/08/17 14:14 Sputum - Expectorated Sputum Sputum Culture - Final 03/08/17 14:14 Sputum - Expectorated Sputum - Final 03/08/17 04:47 Urine,Catheterized Urine Culture - Final Laboratory WBC 25.0 X10^3/uL (3.6-10.0) H* D 03/14/17 04:50 RBC 2.91 X10^6/uL (3.5-5.4) L 03/14/17 04:50 Hgb 8.7 g/dL (12.0-16.0) L 03/14/17 04:50 Hct 25.2 % (36.0-47.0) L 03/14/17 04:50 MCV 86.5 fL (80.0-100.0) 03/14/17 04:50 MCH 29.9 pg (27.0-34.0) 03/14/17 04:50 MCHC 34.5 g/dL (33.0-35.0) 03/14/17 04:50 RDW 14.5 % (11.6-16.5) 03/14/17 04:50 Plt Count 253 X10^3/uL (150.0-450.0) 03/14/17 04:50 Plt Count Comment Adequate (ADEQUATE) 03/14/17 04:50 MPV 7.1 fL (7.4-11.0) L 03/14/17 04:50 Neut % 85.5 % (42.0-75.0) H 03/14/17 04:50 Lymph % 6.1 % (21.0-51.0) L 03/14/17 04:50 [place] % 8.0 % (0.0-13.0) 03/14/17 04:50 Eos % 0.2 % (0.9-2.9) L 03/14/17 04:50 Baso % 0.2 % (0.2-1.0) 03/14/17 04:50 Neut # 21.4 x10^3/uL (2.2-4.8) H 03/14/17 04:50 Lymph # 1.5 X10^3/uL (1.3-2.9) 03/14/17 04:50 [place] # 2.0 x10^3/uL (0.3-0.8) H 03/14/17 04:50 Eos # 0.1 x10^3/uL (0.0-0.2) 03/14/17 04:50 Baso # 0.1 X10^3/uL (0.0-0.1) 03/14/17 04:50 Absolute Nucleated RBC 0.0 /100WBC 03/14/17 04:50 Total Counted 100 03/14/17 04:50 Neutrophils % (Manual) 78 % (39-76) H 03/14/17 04:50 Band Neutrophils % 6 % (0-10) 03/14/17 04:50 Lymphocytes % (Manual) 10 % (13-43) L 03/14/17 04:50 Monocytes % (Manual) 6 % (4-9) 03/14/17 04:50 Metamyelocytes % 1 03/10/17 04:40 Plt Morphology Comment Normal (NORMAL) 03/14/17 04:50 RBC Morphology Normal (NORMAL) 03/14/17 04:50 Hypochromasia 1+ A 03/11/17 04:25 Poikilocytosis Slight A 03/11/17 15:11 Anisocytosis Slight A 03/11/17 15:11 ESR 28 MM/HOUR (0-20) H 03/11/17 07:50 INR Target Range - 03/08/17 05:30 INR 1.10 (0.8-1.3) 03/08/17 05:30 PTT 28.2 SECONDS (22.9-36.5) 03/08/17 05:30 PTT Comment - 03/08/17 05:30 Sodium 141 mmol/L (136-145) 03/14/17 04:50 Corrected Sodium TNP 03/14/17 04:50 Potassium 3.6 mmol/L (3.5-5.1) 03/14/17 04:50 Chloride 108 mmol/L (98-107) H 03/14/17 04:50 Carbon Dioxide 25.9 mmol/L (21-32) 03/14/17 04:50 BUN 26 mg/dL (7-18) H 03/14/17 04:50 Creatinine 1.10 mg/dL (0.55-1.02) H 03/14/17 04:50 Est GFR (MDRD) Af Amer > 60 (>60) 03/14/17 04:50 Est GFR (MDRD) Non-Af 50 (>60) L 03/14/17 04:50 Glucose 83 mg/dL (65-99) 03/14/17 04:50 Lactic Acid 1.3 mmol/L (0.4-2.0) 03/11/17 07:50 Calcium 8.2 mg/dL (8.5-10.1) L 03/14/17 04:50 Corrected Calcium 10.0 mg/dL (8.5-10.1) 03/14/17 04:50 Total Bilirubin 0.40 mg/dL (0.2-1.0) 03/14/17 04:50 AST 30 Units/L (15-37) 03/14/17 04:50 ALT 20 Units/L (12-78) 03/14/17 04:50 Alkaline Phosphatase 41 Units/L (46-116) L 03/14/17 04:50 C-Reactive Protein 184.70 mg/L (0-3.0) H 03/11/17 07:50 Total Protein 4.4 g/dL (6.4-8.2) L 03/14/17 04:50 Albumin 1.7 g/dL (3.4-5.0) L 03/14/17 04:50 Globulin 2.7 g/dL (2.5-4.5) 03/14/17 04:50 Albumin/Globulin Ratio 0.6 Ratio (1.1-2.1) L 03/14/17 04:50 Free T4 1.31 ng/dL (0.76-1.46) 03/11/17 07:50 TSH 3rd Generation 3.539 uIU/mL (0.358-3.74) 03/11/17 07:50 Specimen Type Catherized urine 03/08/17 04:47 Urine Color Yellow (YELLOW) 03/08/17 04:47 Urine Appearance Clear (CLEAR) 03/08/17 04:47 Urine pH 7.0 (5.0 - 8.0) 03/08/17 04:47 Ur Specific [place] 1.010 (1.000-1.030) 03/08/17 04:47 Urine Protein Negative (NEGATIVE) 03/08/17 04:47 Urine Glucose (UA) Negative (NEGATIVE) 03/08/17 04:47 Urine Ketones Negative (NEGATIVE) 03/08/17 04:47 Urine Occult Blood 1+ (NEGATIVE) 03/08/17 04:47 Urine Nitrite Negative (NEGATIVE) 03/08/17 04:47 Urine Bilirubin Negative (NEGATIVE) 03/08/17 04:47 Urine Urobilinogen Normal (NORMAL) 03/08/17 04:47 Ur Leukocyte Esterase Negative (NEGATIVE) 03/08/17 04:47 Urine RBC 3-5 /HPF (NEGATIVE) 03/08/17 04:47 Urine WBC 0-3 /HPF (NEGATIVE) 03/08/17 04:47 Ur Squamous Epith Cells Rare /HPF (NEGATIVE) 03/08/17 04:47 Urine Bacteria Trace /HPF (NEGATIVE) 03/08/17 04:47 Ur Culture Indicated? Yes/culture set up 03/08/17 04:47 Digoxin 0.62 ng/mL (0.9-2) L 03/12/17 04:55 Blood Type O POSITIVE 03/08/17 05:30 Antibody Screen Negative 03/08/17 05:30 Crossmatch See Detail 03/08/17 05:30 - Plan (1) Periprosthetic supracondylar fracture of femur Status: Acute Plan: WEIGHT BEARING TOLERATED WITH PT. 1.WBAT with PT. 2. DRESSING CHANGE EVERY 5 DAYS. 3. SUTURE REMOVAL 3 WEEKS. 4. FOLLOW UP WITH ME IN OFFICE 3 WEEKS. 5.XR FULL LENGTH FEMUR BEFORE THE VISIT. .
[2017-03-14] MEDS: MILK OF MAGNESIA PO PRN (20:34)
[2017-03-14] MEDS: COLACE CAP 100 MG PO SCH ×2 (20:34→21:00)
[2017-03-14] MEDS: RESTORIL CAP 15 MG PO PRN (20:36)
[2017-03-15] MEDS: DUONEB 0.5 MG/3 MG NEB SCH ×6 (00:52→21:07)
[2017-03-15] MEDS: NYSTATIN SUSP PO SCH ×4 (03:00→21:05)
[2017-03-15 05:57] LABS: ALANINE AMINOTRANSFERASE 21 Units/L (12-78); ALBUMIN 1.7 g/dL (3.4-5.0); ALKALINE PHOSPHATASE 40 Units/L (46-116); ASPARTATE AMINO TRANSFERASE 31 Units/L (15-37); BLOOD UREA NITROGEN 22 mg/dL (7-18); CALCIUM 7.8 mg/dL (8.5-10.1); CARBON DIOXIDE 26.8 mmol/L (21-32); CHLORIDE 107 mmol/L (98-107); COR CA(FOR HYPOALB) 9.6 mg/dL (8.5-10.1); CREATININE 0.93 mg/dL (0.55-1.02); SODIUM 139 mmol/L (136-145); TOTAL PROTEIN 4.2 g/dL (6.4-8.2); eGFR BLACK RACES > 60 (>60); eGFR NON BLACK RACES > 60 (>60)
[2017-03-15 06:03] LABS: BASOPHILS % (AUTO) 0.3 % (0.2-1.0); EOSINOPHILS # (AUTO) 0.3 x10^3/uL (0.0-0.2); EOSINOPHILS % (AUTO) 1.5 % (0.9-2.9); HEMATOCRIT 24.9 % (36.0-47.0); HEMOGLOBIN 8.5 g/dL (12.0-16.0); LYMPHOCYTES # (AUTO) 1.7 X10^3/uL (1.3-2.9); LYMPHOCYTES % (AUTO) 9.2 % (21.0-51.0); MEAN CORPUSCULAR HEMOGLOBIN 29.8 pg (27.0-34.0); MEAN CORPUSCULAR HGB CONC 34.2 g/dL (33.0-35.0); MEAN CORPUSCULAR VOLUME 87.1 fL (80.0-100.0); MEAN PLATELET VOLUME 7.2 fL (7.4-11.0); MONOCYTES # (AUTO) 1.2 x10^3/uL (0.3-0.8); MONOCYTES % (AUTO) 6.6 % (0.0-13.0); NEUTROPHILS # (AUTO) 14.9 x10^3/uL (2.2-4.8); NEUTROPHILS % (AUTO) 82.4 % (42.0-75.0); PLATELET COUNT 238 X10^3/uL (150.0-450.0); RED BLOOD COUNT 2.86 X10^6/uL (3.5-5.4); RED CELL DISTRIBUTION WIDTH 14.4 % (11.6-16.5); WHITE BLOOD COUNT 18.1 X10^3/uL (3.6-10.0)
[2017-03-15 06:32] LABS: BAND NEUTROPHILS % 2 % (0-10); PLATELET MORPHOLOGY COMMENT NORMAL (NORMAL)
[2017-03-15] MEDS: CORDARONE TAB 200 MG PO SCH ×2 (06:33→17:12)
[2017-03-15] MEDS: NS 1000 ML 1,000 ML IV SCH (06:34)
--- NOTE | 2017-03-15 06:50 | RAD ---
HISTORY: Follow up congestive heart failure Study: Chest AP portable Comparison: March 12, 2017, March 11, 2017 Findings: There is a right IJ line with its tip in the superior vena cava. The heart is enlarged. No congestive heart failure is noted. The aorta is calcified and ectatic. The right lung is clear. The left upper lung field appears clear increasing left pleural effusion is present. There is obscuration of the lef t hemidiaphragm which could be due to the pleural effusion however underlying infiltrate or atelectas is could not be excluded. The bony thorax is unremarkable. IMPRESSION: Cardiomegaly without congestive heart failure Increasing left pleural effusion Reported By:
[2017-03-15] MEDS: LOVENOX INJ 40 MG SYR SC SCH (08:48)
[2017-03-15] MEDS: MILK OF MAGNESIA PO PRN ×2 (08:48→20:46)
[2017-03-15] MEDS: NORVASC TAB 5 MG PO SCH (08:49)
[2017-03-15] MEDS: LOPRESSOR TAB 25 MG PO SCH ×2 (08:49→20:46)
[2017-03-15] MEDS: ZYVOX 600MG IV 600 MG/300 ML BAG IV SCH ×2 (08:49→20:41)
[2017-03-15] MEDS: KENALOG CREAM TOP SCH ×2 (09:00→20:42)
[2017-03-15] MEDS: NORCO 10/325 TAB PO PRN ×2 (11:42→20:48)
[2017-03-15] MEDS ORDERED: LASIX IVP ONE (14:09)
[2017-03-15] MEDS: ZOFRAN INJ 4 MG VIAL IVP PRN (19:56)
[2017-03-15] MEDS: RESTORIL CAP 15 MG PO PRN (20:46)
[2017-03-15] MEDS: COLACE CAP 100 MG PO SCH (20:46)
--- NOTE | 2017-03-16 00:10 | RAD ---
KUB Indication: Constipation with nausea and vomiting Comparison: None available Findings: Nasogastric tube is noted, the tip of the tube projects over the mid gastric body. There is moderate gaseous distention of the stomach, colon and small bowel. No free air or pneumatosis. Severe dextrosc oliosis of the lumbar spine . Previous left hip replacement demonstrates no evidence of hardware comp lication . Impression: Nasogastric tube has its tip projecting over the mid gastric body. Gaseous distention of the stomach , small bowel and colon is suspicious for an ileus given lack of distal decompression; ho wever a developing small bowel obstruction is not excluded and radiographic followup is recommended. Reported By:
[2017-03-16] MEDS: DUONEB 0.5 MG/3 MG NEB SCH ×6 (01:18→20:43)
[2017-03-16 01:20] LABS: GASTRIC OCCULT BLOOD NEGATIVE (NEGATIVE); PH 5
[2017-03-16 05:44] LABS: ALANINE AMINOTRANSFERASE 22 Units/L (12-78); ALBUMIN 1.8 g/dL (3.4-5.0); ALKALINE PHOSPHATASE 48 Units/L (46-116); ASPARTATE AMINO TRANSFERASE 27 Units/L (15-37); BLOOD UREA NITROGEN 20 mg/dL (7-18); CALCIUM 7.9 mg/dL (8.5-10.1); CARBON DIOXIDE 31.4 mmol/L (21-32); CHLORIDE 104 mmol/L (98-107); COR CA(FOR HYPOALB) 9.7 mg/dL (8.5-10.1); COR NA(FOR HYPERGLY) 139 mmol/L (136-145); CREATININE 1.02 mg/dL (0.55-1.02); SODIUM 138 mmol/L (136-145); TOTAL PROTEIN 4.3 g/dL (6.4-8.2); eGFR BLACK RACES > 60 (>60); eGFR NON BLACK RACES 54 (>60)
[2017-03-16] MEDS: NYSTATIN SUSP PO SCH ×3 (06:12→21:33)
[2017-03-16 06:39] LABS: ANTI-NUCLEAR ANTIBODY TEST None Detected (None Detected)
[2017-03-16 06:41] LABS: BASOPHILS % (AUTO) 0.1 % (0.2-1.0); EOSINOPHILS # (AUTO) 0.1 x10^3/uL (0.0-0.2); EOSINOPHILS % (AUTO) 0.3 % (0.9-2.9); HEMATOCRIT 25.9 % (36.0-47.0); HEMOGLOBIN 8.9 g/dL (12.0-16.0); LYMPHOCYTES # (AUTO) 1.1 X10^3/uL (1.3-2.9); LYMPHOCYTES % (AUTO) 4.6 % (21.0-51.0); MEAN CORPUSCULAR HEMOGLOBIN 30.1 pg (27.0-34.0); MEAN CORPUSCULAR HGB CONC 34.3 g/dL (33.0-35.0); MEAN CORPUSCULAR VOLUME 87.7 fL (80.0-100.0); MEAN PLATELET VOLUME 7.3 fL (7.4-11.0); MONOCYTES # (AUTO) 0.7 x10^3/uL (0.3-0.8); NEUTROPHILS # (AUTO) 22.1 x10^3/uL (2.2-4.8); PLATELET COUNT 225 X10^3/uL (150.0-450.0); RED BLOOD COUNT 2.95 X10^6/uL (3.5-5.4); RED CELL DISTRIBUTION WIDTH 14.1 % (11.6-16.5)
[2017-03-16 06:47] LABS: WHITE BLOOD COUNT 24.1 X10^3/uL (3.6-10.0)
[2017-03-16 07:07] LABS: BAND NEUTROPHILS % 5 % (0-10); PLATELET MORPHOLOGY COMMENT NORMAL (NORMAL)
[2017-03-16] MEDS: NS 1000 ML 1,000 ML IV SCH ×2 (08:08→14:03)
[2017-03-16] MEDS ORDERED: DULCOLAX SUPPOSITORY 10 MG RECTAL ONE ×2 (08:19→17:00)
[2017-03-16] MEDS: CORDARONE TAB 200 MG PO SCH ×2 (09:41→17:10)
[2017-03-16] MEDS: NORVASC TAB 5 MG PO SCH (09:48)
[2017-03-16] MEDS: LOPRESSOR TAB 25 MG PO SCH ×2 (09:49→21:17)
[2017-03-16] MEDS: ZYVOX 600MG IV 600 MG/300 ML BAG IV SCH ×2 (09:50→21:17)
[2017-03-16] MEDS: LOVENOX INJ 40 MG SYR SC SCH (09:50)
[2017-03-16] MEDS: KENALOG CREAM TOP SCH ×2 (09:54→21:17)
--- NOTE | 2017-03-16 10:34 | RAD ---
HISTORY: Abdominal distention, NG tube placement Study: Portable abdomen Comparison: 03/15/2017 Findings: NG tube is in place terminating in the region of the stomach. There is resolution of previous gastric distension. There is some persistent gaseous distention of bowel loops in the lower abdomen. The jose l g bases are clear. There is extensive calcification of the aorta and chronic scoliosis of the lumbar spine. IMPRESSION: 1. NG tube in place with resolution of gastric distention. 2. Mild persistent distention of bowel loops in the lower abdomen. Reported By:
[2017-03-16] MEDS: RESTORIL CAP 15 MG PO PRN (21:17)
[2017-03-16] MEDS: COLACE CAP 100 MG PO SCH (21:17)
[2017-03-16] MEDS: BUTT CREAM (COMPOUND) EXT PRN (21:18)
[2017-03-17] MEDS: DUONEB 0.5 MG/3 MG NEB SCH ×6 (01:11→20:55)
[2017-03-17] MEDS: NYSTATIN SUSP PO SCH (06:11)
[2017-03-17] MEDS: CORDARONE TAB 200 MG PO SCH ×2 (07:12→17:52)
[2017-03-17] MEDS: NORVASC TAB 5 MG PO SCH (08:07)
[2017-03-17] MEDS: LOPRESSOR TAB 25 MG PO SCH ×3 (08:07→20:41)
[2017-03-17] MEDS: NS 1000 ML 1,000 ML IV SCH ×2 (08:07→14:06)
[2017-03-17] MEDS: ZYVOX 600MG IV 600 MG/300 ML BAG IV SCH ×3 (08:07→20:41)
[2017-03-17] MEDS: KENALOG CREAM TOP SCH ×2 (08:08→20:42)
[2017-03-17] MEDS: LOVENOX INJ 40 MG SYR SC SCH (08:08)
[2017-03-17 08:29] LABS: BASOPHILS # (AUTO) 0.1 X10^3/uL (0.0-0.1); BASOPHILS % (AUTO) 0.4 % (0.2-1.0); EOSINOPHILS # (AUTO) 0.2 x10^3/uL (0.0-0.2); EOSINOPHILS % (AUTO) 1.1 % (0.9-2.9); HEMATOCRIT 23.9 % (36.0-47.0); HEMOGLOBIN 8.1 g/dL (12.0-16.0); LYMPHOCYTES % (AUTO) 4.8 % (21.0-51.0); MEAN CORPUSCULAR HEMOGLOBIN 29.8 pg (27.0-34.0); MEAN CORPUSCULAR VOLUME 87.8 fL (80.0-100.0); MEAN PLATELET VOLUME 7.3 fL (7.4-11.0); MONOCYTES # (AUTO) 0.5 x10^3/uL (0.3-0.8); MONOCYTES % (AUTO) 2.5 % (0.0-13.0); NEUTROPHILS # (AUTO) 18.5 x10^3/uL (2.2-4.8); NEUTROPHILS % (AUTO) 91.2 % (42.0-75.0); PLATELET COUNT 202 X10^3/uL (150.0-450.0); RED BLOOD COUNT 2.73 X10^6/uL (3.5-5.4); RED CELL DISTRIBUTION WIDTH 14.2 % (11.6-16.5)
[2017-03-17 08:42] LABS: ALANINE AMINOTRANSFERASE 20 Units/L (12-78); ALBUMIN 1.7 g/dL (3.4-5.0); ALKALINE PHOSPHATASE 44 Units/L (46-116); ASPARTATE AMINO TRANSFERASE 28 Units/L (15-37); BLOOD UREA NITROGEN 21 mg/dL (7-18); CALCIUM 7.8 mg/dL (8.5-10.1); CARBON DIOXIDE 31.1 mmol/L (21-32); CHLORIDE 103 mmol/L (98-107); COR CA(FOR HYPOALB) 9.6 mg/dL (8.5-10.1); CREATININE 0.95 mg/dL (0.55-1.02); SODIUM 132 mmol/L (136-145); TOTAL PROTEIN 4.2 g/dL (6.4-8.2); eGFR BLACK RACES > 60 (>60); eGFR NON BLACK RACES 59 (>60)
[2017-03-17 09:02] LABS: BAND NEUTROPHILS % 4 % (0-10); PLATELET MORPHOLOGY COMMENT NORMAL (NORMAL)
[2017-03-17] MEDS: BUTT CREAM (COMPOUND) EXT PRN (09:11)
[2017-03-17 09:15] LABS: WHITE BLOOD COUNT 20.2 X10^3/uL (3.6-10.0)
[2017-03-17] MEDS: RESTORIL CAP 15 MG PO PRN (19:45)
[2017-03-17] MEDS: COLACE CAP 100 MG PO SCH ×2 (19:46→20:41)
[2017-03-18] MEDS: DUONEB 0.5 MG/3 MG NEB SCH ×3 (01:03→09:31)
[2017-03-18 08:27] LABS: BASOPHILS # (AUTO) 0.1 X10^3/uL (0.0-0.1); BASOPHILS % (AUTO) 0.4 % (0.2-1.0); EOSINOPHILS # (AUTO) 0.2 x10^3/uL (0.0-0.2); EOSINOPHILS % (AUTO) 1.2 % (0.9-2.9); HEMATOCRIT 23.8 % (36.0-47.0); HEMOGLOBIN 8.2 g/dL (12.0-16.0); LYMPHOCYTES # (AUTO) 1.1 X10^3/uL (1.3-2.9); LYMPHOCYTES % (AUTO) 6.8 % (21.0-51.0); MEAN CORPUSCULAR HEMOGLOBIN 30.1 pg (27.0-34.0); MEAN CORPUSCULAR HGB CONC 34.6 g/dL (33.0-35.0); MEAN CORPUSCULAR VOLUME 87.2 fL (80.0-100.0); MONOCYTES # (AUTO) 0.6 x10^3/uL (0.3-0.8); MONOCYTES % (AUTO) 3.5 % (0.0-13.0); NEUTROPHILS # (AUTO) 14.3 x10^3/uL (2.2-4.8); NEUTROPHILS % (AUTO) 88.1 % (42.0-75.0); PLATELET COUNT 202 X10^3/uL (150.0-450.0); RED BLOOD COUNT 2.73 X10^6/uL (3.5-5.4); WHITE BLOOD COUNT 16.3 X10^3/uL (3.6-10.0)
[2017-03-18 08:37] LABS: ALANINE AMINOTRANSFERASE 23 Units/L (12-78); ALBUMIN 1.8 g/dL (3.4-5.0); ALKALINE PHOSPHATASE 46 Units/L (46-116); ASPARTATE AMINO TRANSFERASE 29 Units/L (15-37); BLOOD UREA NITROGEN 18 mg/dL (7-18); CALCIUM 7.8 mg/dL (8.5-10.1); CARBON DIOXIDE 29.9 mmol/L (21-32); CHLORIDE 104 mmol/L (98-107); COR CA(FOR HYPOALB) 9.6 mg/dL (8.5-10.1); SODIUM 137 mmol/L (136-145); TOTAL PROTEIN 4.4 g/dL (6.4-8.2); eGFR BLACK RACES > 60 (>60); eGFR NON BLACK RACES > 60 (>60)
[2017-03-18] MEDS: CORDARONE TAB 200 MG PO SCH (08:42)
[2017-03-18] MEDS: LOPRESSOR TAB 25 MG PO SCH (08:43)
[2017-03-18] MEDS: NORVASC TAB 5 MG PO SCH (08:43)
[2017-03-18] MEDS: LOVENOX INJ 40 MG SYR SC SCH (08:43)
[2017-03-18] MEDS: KENALOG CREAM TOP SCH (09:00)
--- NOTE | 2017-03-18 09:22 | RAD ---
HISTORY: Resolving ileus. Study: Abdomen series with AP chest Comparison: KUB done March 15, 2017 and March 16, 2017. AP March 15, 2017. Technique: KUB and upright views the abdomen are provided. An AP chest also provided. Findings: The nasogastric tube has been removed. Gaseous distention of the stomach and bowel loops has diminish ed. Air is present throughout the colon including the rectum. Findings are compatible with a resolvin g ileus. No bowel obstruction or perforation is seen. There is a left hip arthroplasty. Severe lumbar scoliosis is present. No opaque stone is seen. Trachea is midline. There is cardiomegaly. Atelectasis, infiltrate or pleural fluid is present in the left lung base, with significant interval improvement compared to the prior study. Right lung contin ues to be clear. A central line ascends inserted via a right internal jugular approach with the tip i n the lower SVC. IMPRESSION: Improving abdominal ileus pattern. No bowel obstruction or perforation is seen. Improving aeration in the left lung with still dense atelectasis, infiltrate pleural fluid in the lef t lung base. Hypertensive configuration. Reported By:
[2017-03-18] MEDS ORDERED: XANAX PO ONE (12:17)
[2017-03-18] MEDS: NORCO 10/325 TAB PO PRN (12:20)
[2017-03-18 12:30] VITALS: BP 163/71
== END 2017-03-18 14:00 | DRG 481 ==
LOC: ER 02:11 → MED/SURG 04:35 → ICU 03-11 18:56
PROVIDERS: ADMIT Internal Medicine; ATTEND Internal Medicine
PROC: 30233N1 Transfusion of Nonautologous Red Blood Cells into Peripheral Vein, Percutaneous Approach (ICD-10-PCS; 2017-03-09)
PROC: 30233N1 Transfusion of Nonautologous Red Blood Cells into Peripheral Vein, Percutaneous Approach (ICD-10-PCS; 2017-03-09)
PROC: 30233N1 Transfusion of Nonautologous Red Blood Cells into Peripheral Vein, Percutaneous Approach (ICD-10-PCS; 2017-03-09)
PROC: 0QSC04Z Reposition Left Lower Femur with Internal Fixation Device, Open Approach (ICD-10-PCS; principal; 2017-03-10)
PROC: 30233N1 Transfusion of Nonautologous Red Blood Cells into Peripheral Vein, Percutaneous Approach (ICD-10-PCS; 2017-03-11)
PROC: 05HM33Z Insertion of Infusion Device into Right Internal Jugular Vein, Percutaneous Approach (ICD-10-PCS; 2017-03-12)
PROC: 0D9670Z Drainage of Stomach with Drainage Device, Via Natural or Artificial Opening (ICD-10-PCS; 2017-03-15)
DX: S72.322A Displaced transverse fracture of shaft of left femur, initial encounter for closed fracture (principal); S80.12XA Contusion of left lower leg, initial encounter; Z91.81 History of falling; R06.02 Shortness of breath; M25.551 Pain in right hip; R94.31 Abnormal electrocardiogram [ECG] [EKG]; W18.39XA Other fall on same level, initial encounter; K21.9 Gastro-esophageal reflux disease without esophagitis; I10 Essential (primary) hypertension; I48.0 Paroxysmal atrial fibrillation; J20.8 Acute bronchitis due to other specified organisms; T36.1X5A Adverse effect of cephalosporins and other beta-lactam antibiotics, initial encounter; L27.1 Localized skin eruption due to drugs and medicaments taken internally; Y92.098 Other place in other non-institutional residence as the place of occurrence of the external cause; M13.89 Other specified arthritis, multiple sites; N39.0 Urinary tract infection, site not specified; Z96.652 Presence of left artificial knee joint; Z96.642 Presence of left artificial hip joint; Z90.12 Acquired absence of left breast and nipple; F41.8 Other specified anxiety disorders; F03.90 Unspecified dementia, unspecified severity, without behavioral disturbance, psychotic disturbance, mood disturbance, and anxiety; M15.8 Other polyosteoarthritis; I87.2 Venous insufficiency (chronic) (peripheral); D64.89 Other specified anemias; Z66 Do not resuscitate
CPT/HCPCS: 36415; 36430; 51702; 62326; 70450; 71010; 72192; 73501; 73552; 73700; 74000; 74022; 76881; 80048; 80053; 80162; 81001; 82271; 83605; 84439; 84443; 85014; 85018; 85025; 85610; 85652; 85730; 86140; 86308; 86850; 86900; 86901; 86922; 87040; 87070; 87086; 87205; 93005; 93010; 94640; 94760; 94762; 96365; 96374; 96375; 97535; 99100; 99284; A4216; A4222; P9016; S0020; J0330; J0456; J0690; J1160; J1170; J1200; J1650; J1940; J1956; J2001; J2020; J2250; J2270; J2370; J2405; J2710; J2795; J2930; J3010; J3370; J3480; J3490; J7120; J7620

== ENCOUNTER → 2017-03-21 | Outpatient (CLI) | payer OTHER ==
[2017-03-18 12:30] VITALS: BP 163/71
--- NOTE | 2017-03-22 11:49 | RAD ---
HIP RADIOGRAPHS CLINICAL HISTORY: 36-year-old female with right hip pain status post fall. COMPARISON: None. FINDINGS: 2 views of the right hip were obtained. These demonstrate prior left total hip replacement remains well seated on evidence of hardware malfunction or failure, with no radiographic evidence of right hip fracture. The femoral head is round and is well seated within the acetabulum. The joint spa naima are maintained. Diffuse osteopenia. There is no aggressive bone lesion or abnormal periosteal mary lou ction. There is no soft tissue calcification or gas. IMPRESSION: 1. No radiographic evidence of right hip fracture. 2. Status post left total hip replacement with no evidence of hardware failure. Reported By:
--- NOTE | 2017-03-22 12:07 | RAD ---
Right knee, AP and lateral Indication: Fall with knee pain and swelling Comparison: None Findings: There is advanced tricompartmental degenerative arthrosis, worst in the medial femorotibial compartment. No acute cortical disruption or malalignment identified. Generalized osteopenia. Menisc al chondrocalcinosis is noted. Small joint effusion, without evidence of a lipohemarthrosis. There is subcutaneous edema about the knee. Impression: No acute skeletal injury of the right knee identified, although evaluation of fine bony detail is radford ited by generalized osteopenia. Subcutaneous edema about the knee. Small joint effusion. Advanced tricompartmental DJD. Meniscal chondrocalcinosis is nonspecific, but can be associated with CPPD arthropathy. Correlation recommended. Reported By:
--- NOTE | 2017-03-22 12:18 | RAD ---
HISTORY: Fall, pain in right ankle Study: Three-view right ankle Comparison: 07/21/2016 Findings: There is again generalized soft tissue swelling present involving the distal calf and ankle regions. There is widening of the ankle mortise medially which may indicate ligamentous injury. A lucency is p resent involving the talar dome region laterally which may indicate an osteochondral lesion. This chris sures about 1.2 cm in diameter. Degenerative changes of the ankle are present. No evidence of fractur e line is seen. Posterior calcaneal spurs are incidentally seen. IMPRESSION: Degenerative changes with an osteochondral lesion present involving the lateral aspect of the talar d ome. Soft tissue swelling is present. No fracture line is seen. Reported By:
== END | disposition home or self-care (01) | DRG 556 ==
LOC: RAD 14:54
PROVIDERS: ATTEND Internal Medicine
DX: M25.561 Pain in right knee (principal); M25.571 Pain in right ankle and joints of right foot; M25.551 Pain in right hip; R60.0 Localized edema; M25.461 Effusion, right knee; M17.11 Unilateral primary osteoarthritis, right knee; M11.271 Other chondrocalcinosis, right ankle and foot
CPT/HCPCS: 73501; 73560; 73610

== ENCOUNTER → 2017-03-28 | Outpatient (CLI) | payer OTHER ==
[2017-03-18 12:30] VITALS: BP 163/71
--- NOTE | 2017-03-29 11:01 | RAD ---
Reported By: ORY: Left hip pain and swelling Study: Left femur AP and lateral Comparison: 03/09/2017 Findings: The patient is status post total hip arthroplasty. Position and alignment is anatomic. There is no ev idence for fracture or loosening. The patient is status post open reduction and internal fixation of a distal femoral shaft fracture with a plate, multiple screws, and multiple wires. The fracture lines are still visible. Surgical anjum are present along the lateral aspect of the left thigh. The khushi ent is status post left knee arthroplasty in good position. IMPRESSION: Postsurgical changes as above Fracture distal femoral shaft status post open reduction internal fixation No definite acute findings
== END ==
LOC: RAD 09:11
PROVIDERS: ATTEND Internal Medicine
DX: Z51.89 Encounter for other specified aftercare (principal); S72.322A Displaced transverse fracture of shaft of left femur, initial encounter for closed fracture; X58.XXXA Exposure to other specified factors, initial encounter
CPT/HCPCS: 73552

== ENCOUNTER → 2017-03-31 | Outpatient (CLI) | payer OTHER ==
[2017-03-18 12:30] VITALS: BP 163/71
--- NOTE | 2017-04-01 10:24 | RAD ---
PA and lateral Chest Indication: Shortness of breath Comparison: 03/18/2017 Findings: Heart size is enlarged, unchanged. Calcified atherosclerotic disease of a tortuous thoracic aorta is noted. There is a small right and moderate left-sided pleural effusion. Dense consolidation within th e left greater than right lower lobes likely represents compressive atelectasis however correlation f or clinical findings is needed to exclude a developing infiltrate within the left lung base. No pneum othorax. No acute osseous abnormality. The right-sided IJ central venous catheter is no longer visualized. Impression: See above. Reported By:
== END | disposition home or self-care (01) ==
LOC: RAD 13:34
PROVIDERS: ATTEND Internal Medicine
DX: R06.02 Shortness of breath (principal); J90 Pleural effusion, not elsewhere classified; I51.7 Cardiomegaly; I70.0 Atherosclerosis of aorta
CPT/HCPCS: 71020

== ENCOUNTER → 2017-04-11 | Outpatient (CLI) | payer OTHER ==
[2017-03-18 12:30] VITALS: BP 163/71
--- NOTE | 2017-04-11 18:03 | RAD ---
HISTORY: Left leg swelling Study: Two-view left lower leg Comparison: Left femur done 03/09/2017 Findings: There is generalized and marked soft tissue swelling involving the knee and calf regions extending in to the ankle. There is evidence of a left knee arthroplasty and L-shaped femoral metallic appliance i nvolving the distal femur. The limited visualization of these structures reveals no evidence of hardw are failure. No fracture or dislocation is seen. There is no evidence of visualized prosthetic loosen ing. IMPRESSION: Generalized soft tissue swelling as described above. No evidence of fracture or dislocation is seen. There is no evidence of hardware failure or prosthetic loosening. Reported By:
--- NOTE | 2017-04-11 18:21 | VAS ---
HISTORY: Left hip repair and swelling. Study: Left lower extremity ultrasound. Comparison: None available. TECHNIQUE: Multiple gardiner scale and color flow Doppler images of the deep venous system were obtained of the left lower extremity. FINDINGS: The deep venous system of the left lower extremity was evaluated from the level of the common femoral vein through the popliteal vein. Normal color flow and augmentation can be observed. In addition, normal compression is seen throughout the deep venous system. Soft tissue edema is seen. No obvious focal fluid collection. IMPRESSION: Negative for DVT. Reported By:
--- NOTE | 2017-04-11 19:37 | RAD ---
HISTORY: Cough and congestion Study: Two-view chest Comparison: 03/31/2017 Findings: The trachea is midline. The cardiac silhouette is stable in size. The lungs demonstrate improved ae ration left lung base with persistent air consolidation. Small effusions are noted bilaterally. There is some increasing density in the right lung probably due to worsening pneumonia.. The bony thorax is unremarkable. IMPRESSION: 1. Overall worsening multifocal pneumonia as above. Reported By:
== END | disposition home or self-care (01) | DRG 204 ==
LOC: RAD 16:37
PROVIDERS: ATTEND Internal Medicine
DX: R05 Cough (principal); J16.8 Pneumonia due to other specified infectious organisms; R09.89 Other specified symptoms and signs involving the circulatory and respiratory systems; M79.89 Other specified soft tissue disorders; R60.0 Localized edema
CPT/HCPCS: 71020; 73590; 93971

== ENCOUNTER → 2017-04-14 | Outpatient (CLI) | payer OTHER ==
[2017-03-18 12:30] VITALS: BP 163/71
--- NOTE | 2017-04-14 10:15 | RAD ---
HISTORY: Cough, pneumonia. Prior medical history of hypertension and left breast cancer treated by elidia chandra. Study: Single-view chest Comparison: 04/11/2017. Findings: Multiple opacities are present projected over the upper chest which appear to be extraneous and may b e artifactual. The trachea is midline. There is cardiomegaly with atherosclerotic calcification and u ncoiling of the aortic arch. Improved aeration is noted in the right lung with small right pleural ef fusion present. There is dense opacification in the left lower lobe with atelectasis, infiltrate and/ or pleural fluid present. Severe degenerative changes are present involving both shoulders, more so o n the left. An acute osseous abnormality is not identified. IMPRESSION: Interval improvement in the right lung with a small pleural effusion remaining. Cardiomegaly. Dense consolidation present in the left lower lobe with residual atelectasis,, infiltrate and/or pleu ral effusion. Reported By:
== END | disposition home or self-care (01) ==
LOC: RAD 08:29
PROVIDERS: ATTEND Internal Medicine
DX: J16.8 Pneumonia due to other specified infectious organisms (principal); I51.7 Cardiomegaly
CPT/HCPCS: 71010

== ENCOUNTER 2017-04-15 12:41 | Inpatient (IN) | payer OTHER ==
[2017-04-15] MEDS ORDERED: TUSSIONEX PENNKINETIC SUSP PO PRN (14:11)
--- NOTE | 2017-04-15 14:20 | DR.H&P ---
H&P - History & Physical for Day of: H&P Date: 04/15/17 - Chief Complaint Chief Complaint: cough, sob, weakness, hx pneumonia - Allergies Allergies/Adverse Reactions: Allergies Allergy/AdvReac Type Severity Reaction Status Date / Time Cephalosporins Allergy Verified 03/10/17 15:36 codeine Allergy Verified 03/08/17 02:28 Penicillins Allergy Verified 03/08/17 02:28 Sulfa (Sulfonamide Allergy Verified 03/08/17 02:28 Antibiotics) [SULFA] vancomycin Allergy RASH Verified 03/14/17 11:34 - History of Present Illness History of Present Illness: patient is a 86-year-old white female who is a resident of [facility] who was admitted for further evaluation of multifocal pneumonia. pt was in rehab therapy at [facility] following left hip frature repair. pt has previosly been on iv atbx therapy prior to admission. plan to obtain blood and sputum cultures on admission, iv atbx, resp therapy, o2 therapy, solu medrol iv. resume home meds, cardiac monitoring - Past Medical History Past Medical History: GERD, Hypertension - Past Surgical History Surgical History: Hysterectomy, Mastectomy, Ortho Surgery - Family History Family Medical History: Cancer - Social History Does patient currently use any type of tobacco product: No Have you used tobacco products in the last 12 months: No Does any household member use tobacco: No Alcohol Use: None Drug Use: None - Review of Systems Constitutional: Weakness Eyes: No Symptoms Reported ENT: No Symptoms Reported Respiratory: Cough, Wheezing (76) Cardiovascular: No Symptoms Reported (sad) Gastrointestinal: No Symptoms Reported Genitourinary: No Symptoms Reported Musculoskeletal: Back Pain, Leg Pain, Foot Pain Skin: No Symptoms Reported Neurological: Weakness - Physical Exam Vital Signs: Blood Pressure [Left Arm] 163/71 Blood Pressure [Right Femoral 142/63 Artery] Blood Pressure [Right Arm] 143/64 Blood Pressure 163/71 Oriented: Normal Eyes: Normal Ear: Normal, Right Throat: Red, Dry Respiratory: Rhonchi Throughout, RLL Diminished, LLL Diminished Cardiovascular: Normal : Normal Auscultation: Bowel Sounds: Normal Palpation: Normal Tenderness: Normal Skin: Normal Musculoskeletal: Left, Hip, Back:Lumbar Psychiatric: Anxiety Affect: Anxious Speech Pattern: Clear, Appropriate - Assessment/Plan (1) Pneumonia Status: Acute Plan: admit, pneumonia protocol iv atbx levaquin. o2, resp therapy, admission labs. resume home meds. cardiac monitoring (2) Paroxysmal a-fib Status: Acute (3) Anxiety Status: Chronic (4) Arthritis Status: Chronic (5) Hypertension Status: Chronic
[2017-04-15] MEDS ORDERED: SALINE 3% 15 ML NEB TX ONE (15:42)
[2017-04-15 17:07] VITALS: BMI 25.6
[2017-04-15] MEDS ORDERED: SALINE 3% 15 ML NEB TX NEB ONE ×2 (17:17→18:00)
[2017-04-15 17:42] LABS: BASOPHILS # (AUTO) 0.1 X10^3/uL (0.0-0.1); BASOPHILS % (AUTO) 0.6 % (0.2-1.0); EOSINOPHILS # (AUTO) 0.1 x10^3/uL (0.0-0.2); EOSINOPHILS % (AUTO) 1.1 % (0.9-2.9); HEMATOCRIT 30.5 % (36.0-47.0); HEMOGLOBIN 10.2 g/dL (12.0-16.0); LYMPHOCYTES # (AUTO) 1.3 X10^3/uL (1.3-2.9); LYMPHOCYTES % (AUTO) 13.9 % (21.0-51.0); MEAN CORPUSCULAR HEMOGLOBIN 29.6 pg (27.0-34.0); MEAN CORPUSCULAR HGB CONC 33.5 g/dL (33.0-35.0); MEAN CORPUSCULAR VOLUME 88.3 fL (80.0-100.0); MEAN PLATELET VOLUME 7.9 fL (7.4-11.0); MONOCYTES # (AUTO) 0.8 x10^3/uL (0.3-0.8); MONOCYTES % (AUTO) 9.3 % (0.0-13.0); NEUTROPHILS # (AUTO) 6.8 x10^3/uL (2.2-4.8); NEUTROPHILS % (AUTO) 75.1 % (42.0-75.0); PLATELET COUNT 293 X10^3/uL (150.0-450.0); RED BLOOD COUNT 3.45 X10^6/uL (3.5-5.4); RED CELL DISTRIBUTION WIDTH 15.9 % (11.6-16.5)
[2017-04-15] MEDS ORDERED: XOPENEX 1.25 MG/3 ML NEBULE NEB SCH ×2 (17:45→18:00)
[2017-04-15 17:55] LABS: ALANINE AMINOTRANSFERASE 16 Units/L (12-78); ALBUMIN 2.6 g/dL (3.4-5.0); ALKALINE PHOSPHATASE 115 Units/L (46-116); ASPARTATE AMINO TRANSFERASE 24 Units/L (15-37); BLOOD UREA NITROGEN 20 mg/dL (7-18); CALCIUM 8.6 mg/dL (8.5-10.1); CARBON DIOXIDE 24.9 mmol/L (21-32); COR CA(FOR HYPOALB) 9.7 mg/dL (8.5-10.1); CREATININE 1.22 mg/dL (0.55-1.02); TOTAL PROTEIN 6.1 g/dL (6.4-8.2); eGFR BLACK RACES 53 (>60); eGFR NON BLACK RACES 44 (>60)
[2017-04-15 18:05] LABS: CHLORIDE 103 mmol/L (98-107); SODIUM 138 mmol/L (136-145)
[2017-04-15] MEDS ORDERED: XANAX PO PRN (18:15)
[2017-04-15] MEDS ORDERED: RESTORIL CAP 15 MG PO PRN (18:15)
--- NOTE | 2017-04-15 18:49 | RAD ---
HISTORY: Pneumonia Study: Single view chest Comparison: 04/14/2017 Findings: Single upright portable view is submitted. There are hazy bibasilar opacities suggestive of layering pleural effusions. No pneumothorax identified. There is pulmonary vascular congestion. Cardiomegaly a nd calcified aorta are noted. The soft tissues are unremarkable. IMPRESSION: 1. Cardiomegaly, congestive failure, small effusions. Reported By:
[2017-04-15] MEDS ORDERED: NS 1/2 1000 ML IV 1,000 ML IV ONE (19:12)
[2017-04-15] MEDS: ROBITUSSIN DM PO SCH ×2 (19:17→20:51)
[2017-04-15] MEDS: LEVAQUIN PREMIX IV 750 MG 750 MG/150 ML BAG IV SCH (19:19)
[2017-04-15] MEDS: NS 1/2 1000 ML IV 1,000 ML IV SCH (19:19)
[2017-04-15] MEDS: SOLU-Medrol 40 MG VIAL IVP SCH ×2 (19:20→23:17)
[2017-04-15] MEDS: COLACE CAP 100 MG PO SCH (20:51)
[2017-04-15] MEDS: HEMOCYTE-PLUS PO SCH (20:51)
[2017-04-15] MEDS: MILK OF MAGNESIA PO SCH (20:51)
[2017-04-15] MEDS: XANAX PO SCH (20:52)
[2017-04-15] MEDS: LOPRESSOR TAB 25 MG PO SCH (20:52)
[2017-04-15] MEDS: CORDARONE TAB 200 MG PO SCH (20:52)
[2017-04-15] MEDS: ATARAX TAB 10 MG PO SCH (21:10)
[2017-04-15] MEDS ORDERED: ATARAX TAB 10 MG PO SCH (22:00)
[2017-04-16] MEDS ORDERED: XOPENEX 1.25 MG/3 ML NEBULE NEB SCH
[2017-04-16] MEDS: XOPENEX 1.25 MG/3 ML NEBULE NEB SCH ×4 (00:43→17:15)
[2017-04-16] MEDS: NS 1/2 1000 ML IV 1,000 ML IV SCH ×2 (05:45→20:59)
[2017-04-16] MEDS: ATARAX TAB 10 MG PO SCH ×3 (05:59→21:05)
[2017-04-16] MEDS: SOLU-Medrol 40 MG VIAL IVP SCH (05:59)
[2017-04-16] MEDS: LEVAQUIN PREMIX IV 750 MG 750 MG/150 ML BAG IV SCH (10:10)
[2017-04-16] MEDS: ROBITUSSIN DM PO SCH ×4 (10:11→20:51)
[2017-04-16] MEDS: MILK OF MAGNESIA PO SCH ×4 (10:11→20:59)
[2017-04-16] MEDS: PROTONIX TAB 40 MG PO SCH (10:11)
[2017-04-16] MEDS: CORDARONE TAB 200 MG PO SCH ×2 (10:11→20:53)
[2017-04-16] MEDS: LOPRESSOR TAB 25 MG PO SCH ×2 (10:11→20:51)
[2017-04-16] MEDS: HEMOCYTE-PLUS PO SCH ×2 (10:11→20:52)
[2017-04-16] MEDS: NORVASC TAB 5 MG PO SCH (10:12)
[2017-04-16] MEDS: FOLIC ACID TAB 1 MG PO SCH (10:27)
[2017-04-16 11:07] LABS: BASOPHILS % (AUTO) 0.2 % (0.2-1.0); HEMATOCRIT 26.9 % (36.0-47.0); HEMOGLOBIN 9.2 g/dL (12.0-16.0); LYMPHOCYTES # (AUTO) 0.7 X10^3/uL (1.3-2.9); LYMPHOCYTES % (AUTO) 11.4 % (21.0-51.0); MEAN CORPUSCULAR HGB CONC 34.3 g/dL (33.0-35.0); MEAN CORPUSCULAR VOLUME 87.6 fL (80.0-100.0); MEAN PLATELET VOLUME 7.7 fL (7.4-11.0); MONOCYTES # (AUTO) 0.1 x10^3/uL (0.3-0.8); MONOCYTES % (AUTO) 1.5 % (0.0-13.0); NEUTROPHILS # (AUTO) 5.2 x10^3/uL (2.2-4.8); NEUTROPHILS % (AUTO) 86.9 % (42.0-75.0); PLATELET COUNT 248 X10^3/uL (150.0-450.0); RED BLOOD COUNT 3.07 X10^6/uL (3.5-5.4); RED CELL DISTRIBUTION WIDTH 16.1 % (11.6-16.5)
[2017-04-16 11:19] LABS: ALBUMIN 2.4 g/dL (3.4-5.0); CALCIUM 8.3 mg/dL (8.5-10.1); CARBON DIOXIDE 26.2 mmol/L (21-32); COR CA(FOR HYPOALB) 9.6 mg/dL (8.5-10.1); CREATININE 1.37 mg/dL (0.55-1.02); TOTAL PROTEIN 5.6 g/dL (6.4-8.2)
[2017-04-16] MEDS: XANAX PO SCH (20:52)
[2017-04-16] MEDS: COLACE CAP 100 MG PO SCH (20:58)
[2017-04-17] MEDS: XOPENEX 1.25 MG/3 ML NEBULE NEB SCH ×4 (00:11→17:05)
[2017-04-17] MEDS ORDERED: LANTISEPTIC TOP PRN (00:27)
[2017-04-17] MEDS ORDERED: NS 1/2 1000 ML IV 1,000 ML IV ONE (00:38)
[2017-04-17] MEDS: NS 1/2 1000 ML IV 1,000 ML IV SCH ×2 (01:08→23:10)
[2017-04-17 05:31] LABS: ALBUMIN 2.5 g/dL (3.4-5.0); CALCIUM 8.4 mg/dL (8.5-10.1); CARBON DIOXIDE 25.8 mmol/L (21-32); COR CA(FOR HYPOALB) 9.6 mg/dL (8.5-10.1); CREATININE 1.51 mg/dL (0.55-1.02); TOTAL PROTEIN 5.6 g/dL (6.4-8.2)
[2017-04-17 05:31] LABS: BILIRUBIN,URINE NEGATIVE (NEGATIVE); BLOOD/HEMOGLOBIN,URINE 1+ (NEGATIVE); GLUCOSE, URINE NEGATIVE (NEGATIVE); KETONES,URINE NEGATIVE (NEGATIVE); LEUKOCYTE ESTERASE ,URINE 2+ (NEGATIVE); NITRITES,URINE NEGATIVE (NEGATIVE); PROTEIN,URINE 1+ (NEGATIVE); UROBILINOGEN,URINE NORMAL (NORMAL)
[2017-04-17 05:34] LABS: BASOPHILS % (AUTO) 0.2 % (0.2-1.0); HEMATOCRIT 26.1 % (36.0-47.0); HEMOGLOBIN 8.9 g/dL (12.0-16.0); LYMPHOCYTES # (AUTO) 1.7 X10^3/uL (1.3-2.9); LYMPHOCYTES % (AUTO) 13.6 % (21.0-51.0); MEAN CORPUSCULAR HEMOGLOBIN 29.6 pg (27.0-34.0); MEAN CORPUSCULAR HGB CONC 33.9 g/dL (33.0-35.0); MEAN CORPUSCULAR VOLUME 87.4 fL (80.0-100.0); MEAN PLATELET VOLUME 7.8 fL (7.4-11.0); MONOCYTES # (AUTO) 1.1 x10^3/uL (0.3-0.8); MONOCYTES % (AUTO) 8.5 % (0.0-13.0); NEUTROPHILS # (AUTO) 9.7 x10^3/uL (2.2-4.8); NEUTROPHILS % (AUTO) 77.7 % (42.0-75.0); PLATELET COUNT 258 X10^3/uL (150.0-450.0); RED BLOOD COUNT 2.99 X10^6/uL (3.5-5.4); RED CELL DISTRIBUTION WIDTH 15.7 % (11.6-16.5); WHITE BLOOD COUNT 12.5 X10^3/uL (3.6-10.0)
[2017-04-17] MEDS: ATARAX TAB 10 MG PO SCH ×3 (05:39→21:15)
[2017-04-17 05:44] LABS: APPEARANCE,URINE CLEAR (CLEAR); COLOR,URINE YELLOW (YELLOW)
[2017-04-17 05:45] LABS: BACTERIA,URINE 1+ /HPF (NEGATIVE); RBC,URINE 0-3 /HPF (NEGATIVE); SQUAMOUS EPITHELIAL CELL,UR RARE /HPF (NEGATIVE)
[2017-04-17] MEDS: ROBITUSSIN DM PO SCH ×4 (09:01→20:41)
[2017-04-17] MEDS: LEVAQUIN PREMIX IV 750 MG 750 MG/150 ML BAG IV SCH (09:01)
[2017-04-17] MEDS: CORDARONE TAB 200 MG PO SCH ×2 (09:02→20:41)
[2017-04-17] MEDS: HEMOCYTE-PLUS PO SCH ×2 (09:02→20:41)
[2017-04-17] MEDS: PROTONIX TAB 40 MG PO SCH (09:02)
[2017-04-17] MEDS: NORVASC TAB 5 MG PO SCH (09:02)
[2017-04-17] MEDS: LOPRESSOR TAB 25 MG PO SCH ×2 (09:02→20:41)
[2017-04-17] MEDS: FOLIC ACID TAB 1 MG PO SCH (09:03)
[2017-04-17] MEDS: MILK OF MAGNESIA PO SCH ×4 (10:27→20:42)
[2017-04-17] MEDS: XANAX PO SCH (20:41)
[2017-04-17] MEDS: COLACE CAP 100 MG PO SCH (20:42)
[2017-04-18] MEDS: XOPENEX 1.25 MG/3 ML NEBULE NEB SCH ×3 (00:29→11:25)
[2017-04-18] MEDS: ATARAX TAB 10 MG PO SCH ×2 (05:21→13:42)
[2017-04-18 05:42] LABS: ALANINE AMINOTRANSFERASE 14 Units/L (12-78); ALBUMIN 2.2 g/dL (3.4-5.0); ALKALINE PHOSPHATASE 85 Units/L (46-116); ASPARTATE AMINO TRANSFERASE 18 Units/L (15-37); BLOOD UREA NITROGEN 27 mg/dL (7-18); CALCIUM 8.1 mg/dL (8.5-10.1); CARBON DIOXIDE 26.1 mmol/L (21-32); CHLORIDE 107 mmol/L (98-107); COR CA(FOR HYPOALB) 9.5 mg/dL (8.5-10.1); SODIUM 141 mmol/L (136-145); eGFR BLACK RACES 42 (>60); eGFR NON BLACK RACES 35 (>60)
[2017-04-18 05:48] LABS: BASOPHILS % (AUTO) 0.5 % (0.2-1.0); EOSINOPHILS # (AUTO) 0.1 x10^3/uL (0.0-0.2); HEMATOCRIT 24.9 % (36.0-47.0); HEMOGLOBIN 8.4 g/dL (12.0-16.0); LYMPHOCYTES # (AUTO) 1.6 X10^3/uL (1.3-2.9); LYMPHOCYTES % (AUTO) 20.1 % (21.0-51.0); MEAN CORPUSCULAR HEMOGLOBIN 30.1 pg (27.0-34.0); MEAN CORPUSCULAR HGB CONC 33.9 g/dL (33.0-35.0); MEAN CORPUSCULAR VOLUME 88.9 fL (80.0-100.0); MEAN PLATELET VOLUME 8.1 fL (7.4-11.0); MONOCYTES # (AUTO) 0.8 x10^3/uL (0.3-0.8); MONOCYTES % (AUTO) 10.3 % (0.0-13.0); NEUTROPHILS # (AUTO) 5.5 x10^3/uL (2.2-4.8); NEUTROPHILS % (AUTO) 68.1 % (42.0-75.0); PLATELET COUNT 222 X10^3/uL (150.0-450.0); WHITE BLOOD COUNT 8.1 X10^3/uL (3.6-10.0)
--- NOTE | 2017-04-18 06:53 | RAD ---
HISTORY: Cough Study: Chest AP portable Comparison: 04/15/2017 Findings: The heart is enlarged. No definite congestive heart failure is noted. The right lung and left upper l digna carvalho are clear. Increased density is present in the retrocardiac area of the left lower lobe ob scuring the left hemidiaphragm. This could be due to atelectasis, infiltrate, effusion or combination . The bony thorax is unremarkable. IMPRESSION: Cardiomegaly without congestive heart failure Increased density retrocardiac area left lower lobe. Differential diagnosis as above Reported By:
[2017-04-18] MEDS: HEMOCYTE-PLUS PO SCH (08:33)
[2017-04-18] MEDS: CORDARONE TAB 200 MG PO SCH (08:34)
[2017-04-18] MEDS: NORVASC TAB 5 MG PO SCH (08:34)
[2017-04-18] MEDS: LOPRESSOR TAB 25 MG PO SCH (08:34)
[2017-04-18] MEDS: MILK OF MAGNESIA PO SCH ×2 (08:34→13:42)
[2017-04-18] MEDS: PROTONIX TAB 40 MG PO SCH (08:34)
[2017-04-18] MEDS: ROBITUSSIN DM PO SCH ×2 (08:34→13:42)
[2017-04-18] MEDS: NORCO 10/325 TAB PO PRN ×2 (08:35→13:42)
[2017-04-18] MEDS ORDERED: BUTT CREAM (COMPOUND) TOP PRN (09:30)
[2017-04-18] MEDS ORDERED: LASIX IVP ONE (10:03)
[2017-04-18] MEDS ORDERED: LASIX PO STA (10:35)
[2017-04-18] MEDS: LEVAQUIN PREMIX IV 750 MG 750 MG/150 ML BAG IV SCH (10:50)
[2017-04-18] MEDS: FOLIC ACID TAB 1 MG PO SCH (10:54)
[2017-04-18 12:03] VITALS: BP 151/65
== END 2017-04-18 14:15 | DRG 195 ==
LOC: UNDOADMIN 12:41 → MED/SURG 12:41
PROVIDERS: ADMIT Internal Medicine; ATTEND Internal Medicine
DX: J18.8 Other pneumonia, unspecified organism (principal); R06.02 Shortness of breath; R53.1 Weakness; K21.9 Gastro-esophageal reflux disease without esophagitis; I10 Essential (primary) hypertension; I48.91 Unspecified atrial fibrillation; F41.8 Other specified anxiety disorders; M13.89 Other specified arthritis, multiple sites; D64.89 Other specified anemias
CPT/HCPCS: 36415; 71010; 80053; 81001; 85025; 87040; 87086; 94640; 94760; 99221; 99231; A4222; J1956; J2920

== ENCOUNTER 2017-11-29 13:21 | Inpatient (IN) ==
[2017-11-29 13:51] LABS: BASOPHILS # (AUTO) 0.1 X10^3/uL (0.0-0.1); BASOPHILS % (AUTO) 0.8 % (0.2-1.0); EOSINOPHILS # (AUTO) 0.1 x10^3/uL (0.0-0.2); EOSINOPHILS % (AUTO) 1.2 % (0.9-2.9); HEMATOCRIT 31.4 % (36.0-47.0); HEMOGLOBIN 10.9 g/dL (12.0-16.0); LYMPHOCYTES # (AUTO) 1.3 X10^3/uL (1.3-2.9); LYMPHOCYTES % (AUTO) 17.1 % (21.0-51.0); MEAN CORPUSCULAR HEMOGLOBIN 30.6 pg (27.0-34.0); MEAN CORPUSCULAR HGB CONC 34.8 g/dL (33.0-35.0); MEAN CORPUSCULAR VOLUME 87.8 fL (80.0-100.0); MEAN PLATELET VOLUME 6.9 fL (7.4-11.0); MONOCYTES # (AUTO) 0.6 x10^3/uL (0.3-0.8); MONOCYTES % (AUTO) 7.9 % (0.0-13.0); NEUTROPHILS # (AUTO) 5.7 x10^3/uL (2.2-4.8); PLATELET COUNT 283 X10^3/uL (150.0-450.0); RED BLOOD COUNT 3.58 X10^6/uL (3.5-5.4); RED CELL DISTRIBUTION WIDTH 14.3 % (11.6-16.5); WHITE BLOOD COUNT 7.9 X10^3/uL (3.6-10.0)
--- NOTE | 2017-11-29 13:57 | RAD ---
History: Syncope, breast cancer hypertension Study: Portable chest, comparison 04/18/2017 Findings: Portable AP erect chest labeled 153 hours shows the cardiac silhouette to be mildly enlarge d. No CHF, pneumonia or pleural effusion is seen. There is some elevation of the left hemidiaphragm. This is chronic. Impression: One. Mild cardiomegaly without CHF or pneumonia. 2. Chronic elevation of the left hemidiaphragm. Reported By:
--- NOTE | 2017-11-29 14:00 | DR.GENAD ---
HPI - PCP Primary Care Physician: BLACK SANTIAGO - HPI Comment HPI Comment: PATIENT SITTING HER WHEELCHAIR AND SHE WAS BEING WHEEL TO HER CAR FROM [facility] WHEN SHE HAD SYNCOPAL EPISODE. EMS CALLED. BP WAS LOW. DISCHARGE FROM HOSPITAL LAST WEEK FOR A FIB. FEEL WEEK. HAVE HAD SIMILAR SPELL PREVIOUSLY BUT WAS WORSE TODAY. - Complaint/Symptoms Chief Complaint Doctors Comments: SYNCOPAL EPISODE. Chief Complaint:: EMS OUT TO PT AT [facility] AND SHE STATES SHE PASSED OUT AND THAT SHE DID NOT KNOW WHERE SHE WAS AT AND THAT THIS HAPPENS SOMETIMES, IV STARTED TO LEFT AC, 22 PTS BP WAS 90/80'S AND PT GIVEN NS BOLUS OF 300 ML'S AND HER BP > 120'S SYS, AND THAT HER HR WAS IN THE 50'S AND THAT SHE WAS CONFUSED AND THAT SHE GETS THAT WAY SOME ,BR Self Treatment fo Chief Complaint: UPON ARRIVAL PT IS ALERT AND CONFUSED AND PT IS VERY TEARFUL AND SHE DOES KNOW THE EVENTS THAT LED UP TO HER SYNCOPE,, BR - Nurses notes reviewed Nurses Notes Review: Yes - Source History Provided: Patient, Family Member, EMS - Mode of Arrival Mode of Arrival: EMS - Timing Onset of Chief Complaint: 11/29/17 Came on: Suddenly - Duration Duration: Since Onset Duration: Minutes - Severity Severity: Moderate PMH - PMH Past Medical History: Yes Past Medical History: GERD, Hypertension Past Surgical History: Yes Surgical History: Hysterectomy, Ortho Surgery - Family History History of Family Medical Conditions: Yes Family Medical History: Cancer - Social History Does patient currently use any type of tobacco product: No Have you used tobacco products in the last 12 months: No Type of Tobacco Use: None Does any household member use tobacco: No Alcohol Use: None Do you use any recreational Drugs:: No Lives With: Family Lives Where: Home - infectious screening In the last 2 months have you had wt loss of >10#?: NO Have you had fever, night sweats or hemotysis?: No Have you traveled outside the country in the last 6 months?: No Isolation: Standard ROS - Review of Systems Constitutional: Weakness, Fatigue. negative: Chills, Fever Eyes: Blurred Vision. negative: Eye Pain, Discharge ENTM: negative: Ear Pain, Nose Discharge, Nose Congestion, Throat Pain Respiratoy: Short of Breath (ON EXERTION.). negative: Productive Cough, Non- Productive Cough, Wheezing, Hemoptysis Cardiovascular: Syncope, Other (BRADYCARDIA) Gastrointestinal/Abdominal: No Symptoms Reported Genitourinary: No Symptoms Reported Neurological: Weakness, Dizziness. negative: Headache Musculoskeletal: No Symptoms Reported Integumentary: No Symptoms Reported Hematologic/Lymphatic: Easy Bruising Endocrine: No Symptoms Reported All Other Systems: Reviewed and Negative PE - General Limitations: Altered Mental Status General Appearance: Other (SLEEPY BUT AROUSABLE.) - Head Head Exam: Normal Inspection - Eyes Eye exam: PERRL - ENT ENT Exam: Normal External Ear Exam External Ear Exam: Normal External Inspection TM/Canal Exam: Bilateral Normal Mouth Exam: Normal Inspection Throat Exam: Normal Inspection - Neck Neck Exam: Trachea Midline - Chest Chest Inspection: Symmetric Chest Wall Rise - Respiratory Respiratory Exam: Normal Lung Sounds Bilat Respiratory Exam: Bilateral Clear to Auscultation - Cardiovascular Cardiovascular Exam: Bradycardia - Abdominal Exam Abdominal Exam: Normal Bowel Sounds, Soft. negative: Tenderness - Extremities Extremities Exam: Normal Inspection - Back Back Exam: Normal Inspection - Neurologic Neurological Exam: Alert, CN II-XII Intact, Other (SLEEPY BUT AROUSABLE). negative: Motor Sensory Deficit - Psychiatric Psychiatric Exam: Other (SLEEPY.) - Skin Skin Exam: Normal Color - Vital Signs Vitals: Temperature 97.9 F Pulse Rate 47 Respiratory Rate 20 Blood Pressure [Left Arm] 151/65 Blood Pressure [Right Femoral 142/63 Artery] Blood Pressure [Right Arm] 143/64 Blood Pressure 161/78 O2 Sat by Pulse Oximetry 100 MDM - Additional Information Additional Information Obtained From: Family - Differential Diagnosis Differential Diagnosis: SYNCOPAL EPISODE, BRADYCARDIA, HYPOTENSION, CVA, [place] Course - Treatment Treatment: SEE ORDERS. - Consultation Consultation Comments: DISCUSS PATIENT WITH DR. CLEANING. HE WILL ADMIT PATIENT. - Education/Counseling Education/Counseling: Patient, Family, Education Educated On: Diagnosis ROR - Labs Reviewed Laboratory Results Reviewed?: Yes Result Diagrams: 11/29/17 13:42 11/29/17 13:42 - XRAY XRAY Interpreted by: Radiologist XRAY Findings: REPORT DISCUSS WITH PATIENT AND FAMILY. - EKG Rhythm: SB (EKG NOTED) - Labs Reviewed Laboratory: WBC 7.9 X10^3/uL (3.6-10.0) 11/29/17 13:42 RBC 3.58 X10^6/uL (3.5-5.4) 11/29/17 13:42 Hgb 10.9 g/dL (12.0-16.0) L 11/29/17 13:42 Hct 31.4 % (36.0-47.0) L 11/29/17 13:42 MCV 87.8 fL (80.0-100.0) 11/29/17 13:42 MCH 30.6 pg (27.0-34.0) 11/29/17 13:42 MCHC 34.8 g/dL (33.0-35.0) 11/29/17 13:42 RDW 14.3 % (11.6-16.5) 11/29/17 13:42 Plt Count 283 X10^3/uL (150.0-450.0) 11/29/17 13:42 MPV 6.9 fL (7.4-11.0) L 11/29/17 13:42 Neut % (Auto) 73.0 % (42.0-75.0) 11/29/17 13:42 Lymph % (Auto) 17.1 % (21.0-51.0) L 11/29/17 13:42 Dixon % (Auto) 7.9 % (0.0-13.0) 11/29/17 13:42 Eos % (Auto) 1.2 % (0.9-2.9) 11/29/17 13:42 Baso % (Auto) 0.8 % (0.2-1.0) 11/29/17 13:42 Neut # (Auto) 5.7 x10^3/uL (2.2-4.8) H 11/29/17 13:42 Lymph # (Auto) 1.3 X10^3/uL (1.3-2.9) 11/29/17 13:42 Dixon # (Auto) 0.6 x10^3/uL (0.3-0.8) 11/29/17 13:42 Eos # (Auto) 0.1 x10^3/uL (0.0-0.2) 11/29/17 13:42 Baso # (Auto) 0.1 X10^3/uL (0.0-0.1) 11/29/17 13:42 Absolute Nucleated RBC 0.0 /100WBC 11/29/17 13:42 Sodium 141 mmol/L (136-145) 11/29/17 13:42 Corrected Sodium TNP 11/29/17 13:42 Potassium 3.3 mmol/L (3.5-5.1) L 11/29/17 13:42 Chloride 105 mmol/L (98-107) 11/29/17 13:42 Carbon Dioxide 29.2 mmol/L (21-32) 11/29/17 13:42 BUN 24 mg/dL (7-18) H 11/29/17 13:42 Creatinine 1.41 mg/dL (0.55-1.02) H 11/29/17 13:42 Est GFR (MDRD) Af Amer 45 (>60) L 11/29/17 13:42 Est GFR (MDRD) Non-Af 37 (>60) L 11/29/17 13:42 Glucose 108 mg/dL (65-99) H 11/29/17 13:42 Calcium 8.6 mg/dL (8.5-10.1) 11/29/17 13:42 Troponin I < 0.02 ng/mL (0-1.5) 11/29/17 13:42 - Diagnosis Discharge Problem: Bradycardia, Hypokalemia Hypotension Qualifiers: Hypotension type: unspecified hypotension type Qualified Code(s): I95.9 - Hypotension, unspecified Episode of syncope Qualifiers: Syncope type: unspecified Qualified Code(s): R55 - Syncope and collapse - Discharge Plan Disposition: ADMITTED INPATIENT Condition: Stable
[2017-11-29 14:12] LABS: BLOOD UREA NITROGEN 24 mg/dL (7-18); CALCIUM 8.6 mg/dL (8.5-10.1); CARBON DIOXIDE 29.2 mmol/L (21-32); CHLORIDE 105 mmol/L (98-107); CREATININE 1.41 mg/dL (0.55-1.02); SODIUM 141 mmol/L (136-145); TROPONIN I < 0.02 ng/mL (0-1.5); eGFR NON BLACK RACES 37 (>60)
[2017-11-29 14:17] LABS: ALANINE AMINOTRANSFERASE 13 Units/L (12-78); ALKALINE PHOSPHATASE 67 Units/L (46-116); ASPARTATE AMINO TRANSFERASE 14 Units/L (15-37); COR CA(FOR HYPOALB) 9.4 mg/dL (8.5-10.1); CREATINE KINASE 25 Units/L (26-192); CREATINE KINASE MB < 1.0 ng/mL (0-4.0); TOTAL PROTEIN 6.3 g/dL (6.4-8.2)
[2017-11-29 14:26] LABS: BILIRUBIN,URINE NEGATIVE (NEGATIVE); BLOOD/HEMOGLOBIN,URINE NEGATIVE (NEGATIVE); GLUCOSE, URINE NEGATIVE (NEGATIVE); KETONES,URINE NEGATIVE (NEGATIVE); LEUKOCYTE ESTERASE ,URINE 1+ (NEGATIVE); NITRITES,URINE NEGATIVE (NEGATIVE); PROTEIN,URINE 1+ (NEGATIVE); UROBILINOGEN,URINE NORMAL (NORMAL)
[2017-11-29 14:32] LABS: AMORPHOUS SEDIMENT,UR TRACE /HPF (NEGATIVE); APPEARANCE,URINE CLEAR (CLEAR); BACTERIA,URINE NEGATIVE /HPF (NEGATIVE); COLOR,URINE YELLOW (YELLOW); RBC,URINE NONE SEEN /HPF (NONE SEEN); SQUAMOUS EPITHELIAL CELL,UR RARE /HPF (NEGATIVE)
--- NOTE | 2017-11-29 14:40 | CT ---
HISTORY: Syncope Study: CT head without contrast Comparison: 03/08/2017 Technique: Axial noncontrast images with coronal and sagittal reformats. Dose reduction procedures we re used with mA/kv adjusted for body size. Findings: The ventricles, cortical sulci, and other CSF spaces are enlarged consistent with generalized atrophy likely age related. There is decreased attenuation in the periventricular white matter suggestive of small vessel vascular disease. There is a 1.15 by 0.89 cm calcified lesion projecting to the right o ff the falx near the vertex likely representing a benign meningioma unchanged from the prior examinat ion and contributing no significant mass effect. There is no evidence for recent or remote CVA, hemor rhage, mass lesion, or extra-axial fluid collection. The visualized sinuses are clear. The calvarium is intact. IMPRESSION: No acute intracranial abnormality Age-related atrophy Small vessel disease Stable benign meningioma as described contributing no significant mass-effect. Reported By:
[2017-11-29] MEDS ORDERED: K-LYTE EFFERVESCENT PO ONE (14:44)
[2017-11-29] MEDS ORDERED: K-LYTE EFFERVESCENT ONE (14:44)
[2017-11-29] MEDS ORDERED: NS + KCL 20 MEQ/L 1,000 ML IV ONE (15:08)
[2017-11-29] MEDS: NS + KCL 20 MEQ/L 1,000 ML IV SCH (16:21)
[2017-11-29 16:46] VITALS: BMI 23.1
[2017-11-29 20:45] LABS: CKMB % 2.3 % (<4); CREATINE KINASE 44 Units/L (26-192); CREATINE KINASE MB < 1.0 ng/mL (0-4.0); TROPONIN I < 0.02 ng/mL (0-1.5)
[2017-11-29] MEDS: ELIQUIS PO SCH (20:45)
[2017-11-30] MEDS: CORDARONE TAB 200 MG PO SCH ×3 (00:10→09:26)
[2017-11-30] MEDS: XANAX PO PRN ×2 (00:20→20:47)
[2017-11-30 03:01] LABS: CKMB % 2.4 % (<4); CREATINE KINASE 41 Units/L (26-192); CREATINE KINASE MB < 1.0 ng/mL (0-4.0); TROPONIN I < 0.02 ng/mL (0-1.5)
[2017-11-30] MEDS: NORCO 10/325 TAB PO PRN ×3 (05:33→17:38)
[2017-11-30] MEDS: NS + KCL 20 MEQ/L 1,000 ML IV SCH ×2 (05:34→23:39)
[2017-11-30 05:56] LABS: BASOPHILS # (AUTO) 0.1 X10^3/uL (0.0-0.1); BASOPHILS % (AUTO) 0.8 % (0.2-1.0); EOSINOPHILS # (AUTO) 0.2 x10^3/uL (0.0-0.2); EOSINOPHILS % (AUTO) 2.5 % (0.9-2.9); HEMATOCRIT 32.6 % (36.0-47.0); HEMOGLOBIN 11.3 g/dL (12.0-16.0); LYMPHOCYTES # (AUTO) 1.8 X10^3/uL (1.3-2.9); LYMPHOCYTES % (AUTO) 22.8 % (21.0-51.0); MEAN CORPUSCULAR HEMOGLOBIN 30.4 pg (27.0-34.0); MEAN CORPUSCULAR HGB CONC 34.8 g/dL (33.0-35.0); MEAN CORPUSCULAR VOLUME 87.2 fL (80.0-100.0); MEAN PLATELET VOLUME 7.4 fL (7.4-11.0); MONOCYTES # (AUTO) 0.6 x10^3/uL (0.3-0.8); MONOCYTES % (AUTO) 7.9 % (0.0-13.0); NEUTROPHILS # (AUTO) 5.3 x10^3/uL (2.2-4.8); PLATELET COUNT 293 X10^3/uL (150.0-450.0); RED BLOOD COUNT 3.73 X10^6/uL (3.5-5.4); RED CELL DISTRIBUTION WIDTH 13.9 % (11.6-16.5)
[2017-11-30 06:10] LABS: ALANINE AMINOTRANSFERASE 14 Units/L (12-78); ALBUMIN 3.1 g/dL (3.4-5.0); ALKALINE PHOSPHATASE 67 Units/L (46-116); ASPARTATE AMINO TRANSFERASE 17 Units/L (15-37); BLOOD UREA NITROGEN 15 mg/dL (7-18); CARBON DIOXIDE 28.6 mmol/L (21-32); CHLORIDE 105 mmol/L (98-107); COR CA(FOR HYPOALB) 9.7 mg/dL (8.5-10.1); CREATININE 1.02 mg/dL (0.55-1.02); MAGNESIUM 1.2 mg/dL (1.7-2.9); SODIUM 142 mmol/L (136-145); TOTAL PROTEIN 6.5 g/dL (6.4-8.2); eGFR NON BLACK RACES 54 (>60)
[2017-11-30] MEDS ORDERED: OMEPRAZOLE MAGNESIUM 20 MG PO SCH (09:00)
[2017-11-30] MEDS ORDERED: OMEGA PO SCH (09:00)
[2017-11-30] MEDS ORDERED: PATIENT'S HOME MEDICATION PO SCH (09:00)
[2017-11-30] MEDS: ELIQUIS PO SCH ×2 (09:26→20:47)
[2017-11-30] MEDS: PriLOSEC PO SCH (09:27)
[2017-11-30] MEDS: LOVAZA PO SCH (09:27)
--- NOTE | 2017-11-30 13:17 | DR.H&P ---
H&P - History & Physical for Day of: H&P Date: 11/30/17 - Chief Complaint Chief Complaint: SYNCOPE - History of Present Illness History of Present Illness: PT IS 86 WF ER ADMISSION AFTER PRESENTING WITH CO SYNCOPE. PT WAS SEATED IN ROLLING WALKER AND BECAME WEAK AND SOB, HAD A WITNESSED SYNCOPE EPISODE WITH BRADYCARDIA AND HYPOTENSION. PT WAS RECENTLY DX WITH AFIB WITH RVR AND STARTED ON BB ELIQUIS AND AMIODARONE. FAMILY REPORTS PT HAS HAD 2-3 "FAINTING SPELLS" SINCE SHE WAS RELEASED FROM [facility] ONE WEEK AGO. PT HAS PMH OF HTN, OA, GERD, KENROY. PT ADMITTED FOR TREATMENT AND EVALUATION OF SYMPTOMATIC BRADYCARDIA AND SYNCOPE. - Past Medical History Past Medical History: Anxiety, Arthritis, GERD, Hypertension - Past Surgical History Surgical History: Hysterectomy, Ortho Surgery - Family History Family Medical History: Cancer - Social History Does patient currently use any type of tobacco product: No Have you used tobacco products in the last 12 months: No Type of Tobacco Use: None Does any household member use tobacco: No Alcohol Use: None Drug Use: None - Medications Home Medications: Cephalosporins Allergy (Verified 11/29/17 13:23) codeine Allergy (Verified 11/29/17 13:23) Penicillins Allergy (Verified 11/29/17 13:23) Sulfa (Sulfonamide Antibiotics) [SULFA] Allergy (Verified 11/29/17 13:23) vancomycin Allergy (Verified 11/29/17 13:23) RASH CONTINUE taking the following medications alprazolam [Xanax] 1 tab PO BID PRN 11/29/17 [History] amiodarone 1 tab PO DAILY 11/29/17 [History] amlodipine 1 tab PO DAILY 11/29/17 [History] apixaban [Eliquis] 1 tab PO BID 11/29/17 [History] docusate sodium [Colace] 200 mg PO DAILY 11/29/17 [History] hydrochlorothiazide 1 tab PO .QOD 11/29/17 [History] hydrocodone-acetaminophen [[place]] 1 tab PO Q6H PRN 11/29/17 [History] metoprolol tartrate 1 tab PO BID 11/29/17 [History] omega [id number]-fish oil [Fish Oil] 1 cap PO DAILY 11/29/17 [History] omeprazole 1 cap PO DAILY 11/29/17 [History] potassium chloride 1 tab PO DAILY 11/29/17 [History] quetiapine 12.5 tab PO BID 11/29/17 [History] quetiapine [Seroquel] 12.5 mg PO BID 11/29/17 [History] - Review of Systems Constitutional: Weakness Eyes: No Symptoms Reported ENT: No Symptoms Reported Respiratory: SOB with Excertion Cardiovascular: Palpitations, Light Headedness Genitourinary: No Symptoms Reported Musculoskeletal: Back Pain, Leg Pain Skin: No Symptoms Reported Neurological: Weakness - Physical Exam Vital Signs: Temperature 98.1 F Pulse Rate [Left Apical] 55 Pulse Rate 47 Respiratory Rate 20 Blood Pressure [Left Arm] 171/72 Blood Pressure [Right Femoral 142/63 Artery] Blood Pressure [Right Arm] 148/59 Blood Pressure 161/78 O2 Sat by Pulse Oximetry 100 Oriented: Normal Eyes: Normal Ear: Normal Nose: Normal Throat: Normal Respiratory: RLL Diminished, LLL Diminished Cardiovascular: Bradycardia : Normal Auscultation: Bowel Sounds: Normal Palpation: Normal Tenderness: Normal Skin: Decreased Turgur Musculoskeletal: Right, Left, Hip, Back:Thoracic, Back:Lumbar, Instability Psychiatric: Anxiety Affect: Anxious Speech Pattern: Clear, Appropriate - Assessment/Plan (1) Syncope and collapse Status: Acute Plan: PT ADMITTED ICU, SERIAL CARDIAC ENZYMES AND EKGS. CONTINUOUS CARDIAC MONITORING, BP CONTROL. GENTLE HYDRATION, SUPPLEMENTAL O2. VERIFY HOME MEDS, CONTINUE ELIQUIS, HOLD RATE CONTROL MEDICATIONS-BB (2) Hypotension Qualifiers: Hypotension type: unspecified hypotension type Qualified Code(s): I95.9 - Hypotension, unspecified Status: Acute (3) Bradycardia Status: Acute (4) Paroxysmal a-fib Status: Acute (5) Hypertension Status: Chronic (6) Arthritis Status: Chronic (7) Anxiety Status: Chronic (8) History of left mastectomy Status: Chronic - Allergies Allergies/Adverse Reactions: Allergies Allergy/AdvReac Type Severity Reaction Status Date / Time Cephalosporins Allergy Verified 11/29/17 13:23 codeine Allergy Verified 11/29/17 13:23 Penicillins Allergy Verified 11/29/17 13:23 Sulfa (Sulfonamide Allergy Verified 11/29/17 13:23 Antibiotics) [SULFA] vancomycin Allergy RASH Verified 11/29/17 13:23
--- NOTE | 2017-11-30 13:31 | PCM.PROG ---
Progress Note - Progress Note for Day of Date: 11/30/17 - Subjective Subjective: 86 WF ER ADMISSION ON 11/29 WITH SYNCOPE. PT WAS BRADYCARDIC ON ADMISSION, PT HAS RECENT HX AFIB WITH RVR. PT IN SINUS KIMMY THIS AM, WITH IMPROVED BP. PT DENIES ANY CP OR SOB AT REST. CURRENTLY HOLDING BB, DISCUSSED POSSIBLE NEED FOR PACE MAKER WITH PT AND FAMILY, THEY ARE AGREEABLE IF NEED FOR TRANSFER. - Past Medical Family Social History Past Med/Fam/Surg Hx: No changes since H&P Allergies: Allergies Cephalosporins Allergy (Verified 11/29/17 13:23) codeine Allergy (Verified 11/29/17 13:23) Penicillins Allergy (Verified 11/29/17 13:23) Sulfa (Sulfonamide Antibiotics) [SULFA] Allergy (Verified 11/29/17 13:23) vancomycin Allergy (Verified 11/29/17 13:23) RASH - Review of Systems ROS: No change since H&P - Vital Signs and I&O's Vital Signs: Temperature 98.1 F Pulse Rate [Left Apical] 55 Pulse Rate 47 Respiratory Rate 20 Blood Pressure [Left Arm] 171/72 Blood Pressure [Right Femoral 142/63 Artery] Blood Pressure [Right Arm] 148/59 Blood Pressure 161/78 O2 Sat by Pulse Oximetry 100 Intake and Output: Intake & Output 11/28/17 11/29/17 11/30/17 12/01/17 11:59 11:59 11:59 11:59 Intake Total 1228 / 1228 Output Total 1150 / 1150 Balance 78 / 78 - Physical Exam Oriented: Normal Eyes: Normal Ear: Normal Nose: Normal Throat: Normal Respiratory: Diminished Cardiovascular: Bradycardia : Normal Auscultation: Bowel Sounds: Normal Tenderness: Normal Skin: Decreased Turgur Musculoskeletal: Right, Left, Hip, Back:Thoracic, Back:Lumbar, Instability Psychiatric: Anxiety Affect: Anxious Speech Pattern: Clear, Appropriate - Laboratory and Diagnostics Result Diagrams: 11/30/17 05:10 11/30/17 05:10 Labs: Laboratory WBC 8.0 X10^3/uL (3.6-10.0) 11/30/17 05:10 RBC 3.73 X10^6/uL (3.5-5.4) 11/30/17 05:10 Hgb 11.3 g/dL (12.0-16.0) L 11/30/17 05:10 Hct 32.6 % (36.0-47.0) L 11/30/17 05:10 MCV 87.2 fL (80.0-100.0) 11/30/17 05:10 MCH 30.4 pg (27.0-34.0) 11/30/17 05:10 MCHC 34.8 g/dL (33.0-35.0) 11/30/17 05:10 RDW 13.9 % (11.6-16.5) 11/30/17 05:10 Plt Count 293 X10^3/uL (150.0-450.0) 11/30/17 05:10 MPV 7.4 fL (7.4-11.0) 11/30/17 05:10 Neut % (Auto) 66.0 % (42.0-75.0) 11/30/17 05:10 Lymph % (Auto) 22.8 % (21.0-51.0) 11/30/17 05:10 [place] % (Auto) 7.9 % (0.0-13.0) 11/30/17 05:10 Eos % (Auto) 2.5 % (0.9-2.9) 11/30/17 05:10 Baso % (Auto) 0.8 % (0.2-1.0) 11/30/17 05:10 Neut # (Auto) 5.3 x10^3/uL (2.2-4.8) H 11/30/17 05:10 Lymph # (Auto) 1.8 X10^3/uL (1.3-2.9) 11/30/17 05:10 [place] # (Auto) 0.6 x10^3/uL (0.3-0.8) 11/30/17 05:10 Eos # (Auto) 0.2 x10^3/uL (0.0-0.2) 11/30/17 05:10 Baso # (Auto) 0.1 X10^3/uL (0.0-0.1) 11/30/17 05:10 Absolute Nucleated RBC 0.0 /100WBC 11/30/17 05:10 Sodium 142 mmol/L (136-145) 11/30/17 05:10 Corrected Sodium TNP 11/30/17 05:10 Potassium 3.5 mmol/L (3.5-5.1) 11/30/17 05:10 Chloride 105 mmol/L (98-107) 11/30/17 05:10 Carbon Dioxide 28.6 mmol/L (21-32) 11/30/17 05:10 BUN 15 mg/dL (7-18) 11/30/17 05:10 Creatinine 1.02 mg/dL (0.55-1.02) 11/30/17 05:10 Est GFR (MDRD) Af Amer > 60 (>60) 11/30/17 05:10 Est GFR (MDRD) Non-Af 54 (>60) L 11/30/17 05:10 Glucose 91 mg/dL (65-99) 11/30/17 05:10 Calcium 9.0 mg/dL (8.5-10.1) 11/30/17 05:10 Corrected Calcium 9.7 mg/dL (8.5-10.1) 11/30/17 05:10 Magnesium 1.2 mg/dL (1.7-2.9) L 11/30/17 05:10 Total Bilirubin 0.40 mg/dL (0.2-1.0) 11/30/17 05:10 AST 17 Units/L (15-37) 11/30/17 05:10 ALT 14 Units/L (12-78) 11/30/17 05:10 Alkaline Phosphatase 67 Units/L (46-116) 11/30/17 05:10 Creatine Kinase 41 Units/L (26-192) 11/30/17 02:04 CK-MB (CK-2) < 1.0 ng/mL (0-4.0) 11/30/17 02:04 CK/CKMB % Calc 2.4 % (<4) 11/30/17 02:04 Troponin I < 0.02 ng/mL (0-1.5) 11/30/17 02:04 Total Protein 6.5 g/dL (6.4-8.2) 11/30/17 05:10 Albumin 3.1 g/dL (3.4-5.0) L 11/30/17 05:10 Globulin 3.4 g/dL (2.5-4.5) 11/30/17 05:10 Albumin/Globulin Ratio 0.9 Ratio (1.1-2.1) L 11/30/17 05:10 Specimen Type Random urine 11/29/17 14:12 Urine Color Yellow (YELLOW) 11/29/17 14:12 Urine Appearance Clear (CLEAR) 11/29/17 14:12 Urine pH 7.0 (5.0 - 8.0) 11/29/17 14:12 Ur Specific [place] 1.005 (1.000-1.030) 11/29/17 14:12 Urine Protein 1+ (NEGATIVE) 11/29/17 14:12 Urine Glucose (UA) Negative (NEGATIVE) 11/29/17 14:12 Urine Ketones Negative (NEGATIVE) 11/29/17 14:12 Urine Occult Blood Negative (NEGATIVE) 11/29/17 14:12 Urine Nitrite Negative (NEGATIVE) 11/29/17 14:12 Urine Bilirubin Negative (NEGATIVE) 11/29/17 14:12 Urine Urobilinogen Normal (NORMAL) 11/29/17 14:12 Ur Leukocyte Esterase 1+ (NEGATIVE) 11/29/17 14:12 Urine RBC None seen /HPF (NONE SEEN) 11/29/17 14:12 Urine WBC 0-2 /HPF (NONE SEEN) 11/29/17 14:12 Ur Squamous Epith Cells Rare /HPF (NEGATIVE) 11/29/17 14:12 Amorphous Sediment Trace /HPF (NEGATIVE) 11/29/17 14:12 Urine Bacteria Negative /HPF (NEGATIVE) 11/29/17 14:12 Ur Culture Indicated? No/not indicated 11/29/17 14:12 - Plan (1) Syncope and collapse Status: Acute Plan: SERIAL CARDIAC ENZYMES AND EKGS ON ADMISSION. CONTINUOUS CARDIAC MONITORING, BP CONTROL. GENTLE HYDRATION, SUPPLEMENTAL O2. VERIFY HOME MEDS, CONTINUE ELIQUIS, HOLD RATE CONTROL MEDICATIONS-BB (2) Hypotension Status: Acute Qualifiers: Hypotension type: unspecified hypotension type Qualified Code(s): I95.9 - Hypotension, unspecified Plan: STABLE, CONTINUE TO MONITOR (3) Bradycardia Status: Acute (4) Paroxysmal a-fib Status: Acute (5) Hypertension Status: Chronic (6) Arthritis Status: Chronic (7) Anxiety Status: Chronic (8) History of left mastectomy Status: Chronic
[2017-11-30] MEDS: MILK OF MAGNESIA PO SCH (20:50)
[2017-11-30] MEDS ORDERED: COLACE CAP 100 MG PO SCH (21:00)
[2017-12-01 05:39] LABS: BASOPHILS # (AUTO) 0.1 X10^3/uL (0.0-0.1); BASOPHILS % (AUTO) 0.8 % (0.2-1.0); EOSINOPHILS # (AUTO) 0.2 x10^3/uL (0.0-0.2); EOSINOPHILS % (AUTO) 2.6 % (0.9-2.9); HEMOGLOBIN 11.3 g/dL (12.0-16.0); LYMPHOCYTES # (AUTO) 1.6 X10^3/uL (1.3-2.9); LYMPHOCYTES % (AUTO) 18.9 % (21.0-51.0); MEAN CORPUSCULAR HGB CONC 34.3 g/dL (33.0-35.0); MEAN CORPUSCULAR VOLUME 87.6 fL (80.0-100.0); MEAN PLATELET VOLUME 7.1 fL (7.4-11.0); MONOCYTES # (AUTO) 0.7 x10^3/uL (0.3-0.8); MONOCYTES % (AUTO) 8.3 % (0.0-13.0); NEUTROPHILS # (AUTO) 5.9 x10^3/uL (2.2-4.8); NEUTROPHILS % (AUTO) 69.4 % (42.0-75.0); PLATELET COUNT 269 X10^3/uL (150.0-450.0); RED BLOOD COUNT 3.76 X10^6/uL (3.5-5.4); RED CELL DISTRIBUTION WIDTH 14.3 % (11.6-16.5); WHITE BLOOD COUNT 8.5 X10^3/uL (3.6-10.0)
[2017-12-01 05:56] LABS: ALANINE AMINOTRANSFERASE < 6 Units/L (12-78); ALBUMIN 2.8 g/dL (3.4-5.0); ALKALINE PHOSPHATASE 66 Units/L (46-116); ASPARTATE AMINO TRANSFERASE 18 Units/L (15-37); BLOOD UREA NITROGEN 12 mg/dL (7-18); CALCIUM 8.6 mg/dL (8.5-10.1); CARBON DIOXIDE 28.6 mmol/L (21-32); CHLORIDE 106 mmol/L (98-107); COR CA(FOR HYPOALB) 9.6 mg/dL (8.5-10.1); SODIUM 142 mmol/L (136-145); TOTAL PROTEIN 5.9 g/dL (6.4-8.2); eGFR NON BLACK RACES 56 (>60)
[2017-12-01] MEDS ORDERED: K-LYTE EFFERVESCENT PO PRN (06:16)
[2017-12-01] MEDS ORDERED: POTASSIUM CHL 40 MEQ/NS 0.45% 500 ML IV PRN (06:16)
[2017-12-01] MEDS ORDERED: K-RIDER 10 MEQ/NS 100 ML 10 MEQ/100 ML BAG IV PRN (06:16)
[2017-12-01] MEDS ORDERED: POTASSIUM CHLORIDE LIQ 20 MEQ UDC PO PRN (06:16)
[2017-12-01] MEDS ORDERED: POTASSIUM CHL 60 MEQ/NS 0.45% 500 ML IV PRN (06:16)
[2017-12-01] MEDS: MAGNESIUM SULFATE 1 GRAM/100 mL PREMIX 1 GM/100 ML BAG IV PRN ×4 (06:42→10:15)
[2017-12-01] MEDS: NS + KCL 20 MEQ/L 1,000 ML IV SCH (06:43)
[2017-12-01] MEDS: PriLOSEC PO SCH (08:10)
[2017-12-01] MEDS: LOVAZA PO SCH (08:10)
[2017-12-01] MEDS: ELIQUIS PO SCH (08:10)
[2017-12-01] MEDS: MILK OF MAGNESIA PO SCH (08:10)
[2017-12-01] MEDS ORDERED: CORDARONE TAB 200 MG PO SCH (09:00)
[2017-12-01] MEDS: XANAX PO PRN (11:49)
--- NOTE | 2017-12-01 13:26 | PCM.DCPLAN ---
Discharge Summary - Admission Date Date of Admission: 11/29/17 - Discharge Date Discharge Date: 12/01/17 - Admission Diagnoses (1) Syncope and collapse Status: Acute (2) Hypotension Status: Acute (3) Bradycardia Status: Acute (4) Paroxysmal a-fib Status: Acute (5) Hypertension Status: Chronic (6) Arthritis Status: Chronic (7) Anxiety Status: Chronic (8) History of left mastectomy Status: Chronic - Discharge Diagnoses Discharge Diagnosis: same as admission - Discharge Medications Discharge Medications: Home Medication List alprazolam [Xanax] 1 tab PO BID PRN 11/29/17 [History] amiodarone 1 tab PO DAILY 11/29/17 [History] amlodipine 1 tab PO DAILY 11/29/17 [History] apixaban [Eliquis] 1 tab PO BID 11/29/17 [History] docusate sodium [Colace] 200 mg PO DAILY 11/29/17 [History] hydrochlorothiazide 1 tab PO .QOD 11/29/17 [History] hydrocodone-acetaminophen [[place]] 1 tab PO Q6H PRN 11/29/17 [History] metoprolol tartrate 1 tab PO BID 11/29/17 [History] omega [id number]-[id number]-fish oil [Fish Oil] 1 cap PO DAILY 11/29/17 [History] omeprazole 1 cap PO DAILY 11/29/17 [History] potassium chloride 1 tab PO DAILY 11/29/17 [History] quetiapine 12.5 tab PO BID 11/29/17 [History] quetiapine [Seroquel] 12.5 mg PO BID 11/29/17 [History] amlodipine [Norvasc] 10 mg PO DAILY 11/30/17 [History] Prescriptions: - Hospital Course Vital Signs: Temperature 98.5 F Pulse Rate [Left Apical] 60 Pulse Rate 47 Respiratory Rate 33 Blood Pressure [Left Arm] 171/72 Blood Pressure [Right Femoral 142/63 Artery] Blood Pressure [Right Arm] 190/85 Blood Pressure 161/78 O2 Sat by Pulse Oximetry 100 Latest Lab Results: Laboratory Last Values WBC 8.5 X10^3/uL (3.6-10.0) 12/01/17 05:21 RBC 3.76 X10^6/uL (3.5-5.4) 12/01/17 05:21 Hgb 11.3 g/dL (12.0-16.0) L 12/01/17 05:21 Hct 33.0 % (36.0-47.0) L 12/01/17 05:21 MCV 87.6 fL (80.0-100.0) 12/01/17 05:21 MCH 30.0 pg (27.0-34.0) 12/01/17 05:21 MCHC 34.3 g/dL (33.0-35.0) 12/01/17 05:21 RDW 14.3 % (11.6-16.5) 12/01/17 05:21 Plt Count 269 X10^3/uL (150.0-450.0) 12/01/17 05:21 MPV 7.1 fL (7.4-11.0) L 12/01/17 05:21 Neut % (Auto) 69.4 % (42.0-75.0) 12/01/17 05:21 Lymph % (Auto) 18.9 % (21.0-51.0) L 12/01/17 05:21 [place] % (Auto) 8.3 % (0.0-13.0) 12/01/17 05:21 Eos % (Auto) 2.6 % (0.9-2.9) 12/01/17 05:21 Baso % (Auto) 0.8 % (0.2-1.0) 12/01/17 05:21 Neut # (Auto) 5.9 x10^3/uL (2.2-4.8) H 12/01/17 05:21 Lymph # (Auto) 1.6 X10^3/uL (1.3-2.9) 12/01/17 05:21 [place] # (Auto) 0.7 x10^3/uL (0.3-0.8) 12/01/17 05:21 Eos # (Auto) 0.2 x10^3/uL (0.0-0.2) 12/01/17 05:21 Baso # (Auto) 0.1 X10^3/uL (0.0-0.1) 12/01/17 05:21 Absolute Nucleated RBC 0.1 /100WBC 12/01/17 05:21 Sodium 142 mmol/L (136-145) 12/01/17 05:21 Corrected Sodium TNP 12/01/17 05:21 Potassium 3.5 mmol/L (3.5-5.1) 12/01/17 05:21 Chloride 106 mmol/L (98-107) 12/01/17 05:21 Carbon Dioxide 28.6 mmol/L (21-32) 12/01/17 05:21 BUN 12 mg/dL (7-18) 12/01/17 05:21 Creatinine 1.00 mg/dL (0.55-1.02) 12/01/17 05:21 Est GFR (MDRD) Af Amer > 60 (>60) 12/01/17 05:21 Est GFR (MDRD) Non-Af 56 (>60) L 12/01/17 05:21 Glucose 98 mg/dL (65-99) 12/01/17 05:21 Calcium 8.6 mg/dL (8.5-10.1) 12/01/17 05:21 Corrected Calcium 9.6 mg/dL (8.5-10.1) 12/01/17 05:21 Magnesium 1.4 mg/dL (1.7-2.9) L 12/01/17 05:21 Total Bilirubin 0.30 mg/dL (0.2-1.0) 12/01/17 05:21 AST 18 Units/L (15-37) 12/01/17 05:21 ALT < 6 Units/L (12-78) L 12/01/17 05:21 Alkaline Phosphatase 66 Units/L (46-116) 12/01/17 05:21 Creatine Kinase 41 Units/L (26-192) 11/30/17 02:04 CK-MB (CK-2) < 1.0 ng/mL (0-4.0) 11/30/17 02:04 CK/CKMB % Calc 2.4 % (<4) 11/30/17 02:04 Troponin I < 0.02 ng/mL (0-1.5) 11/30/17 02:04 Total Protein 5.9 g/dL (6.4-8.2) L 12/01/17 05:21 Albumin 2.8 g/dL (3.4-5.0) L 12/01/17 05:21 Globulin 3.1 g/dL (2.5-4.5) 12/01/17 05:21 Albumin/Globulin Ratio 0.9 Ratio (1.1-2.1) L 12/01/17 05:21 Specimen Type Random urine 11/29/17 14:12 Urine Color Yellow (YELLOW) 11/29/17 14:12 Urine Appearance Clear (CLEAR) 11/29/17 14:12 Urine pH 7.0 (5.0 - 8.0) 11/29/17 14:12 Ur Specific [place] 1.005 (1.000-1.030) 11/29/17 14:12 Urine Protein 1+ (NEGATIVE) 11/29/17 14:12 Urine Glucose (UA) Negative (NEGATIVE) 11/29/17 14:12 Urine Ketones Negative (NEGATIVE) 11/29/17 14:12 Urine Occult Blood Negative (NEGATIVE) 11/29/17 14:12 Urine Nitrite Negative (NEGATIVE) 11/29/17 14:12 Urine Bilirubin Negative (NEGATIVE) 11/29/17 14:12 Urine Urobilinogen Normal (NORMAL) 11/29/17 14:12 Ur Leukocyte Esterase 1+ (NEGATIVE) 11/29/17 14:12 Urine RBC None seen /HPF (NONE SEEN) 11/29/17 14:12 Urine WBC 0-2 /HPF (NONE SEEN) 11/29/17 14:12 Ur Squamous Epith Cells Rare /HPF (NEGATIVE) 11/29/17 14:12 Amorphous Sediment Trace /HPF (NEGATIVE) 11/29/17 14:12 Urine Bacteria Negative /HPF (NEGATIVE) 11/29/17 14:12 Ur Culture Indicated? No/not indicated 11/29/17 14:12 Hospital Course: 86 WF ER ADMISSION AFTER PRESENTING WITH CO SYNCOPE, BRADYCARDIA, AND HYPOTENSION. PT HAS HX OF AFIB. PT WAS ADMITTED TO ICU FOR SERIAL CARDIAC ENZYMES AND EKG'S. PT CONTINUES TO CO WEAKNESS HOLDING RATE CONTROL MEDICATIONS , DECREASED AMIODARONE TO 200MG ONCE DAILY. DUE TO PT CONTINUED CO WEAKNESS AND SYMPTOMATIC BRADYCARDIA WE DISCUSSED WITH FAMILY NEED TO TRANSFER TO [facility] FACILITY FOR CARDIAC EVALUATION AND POSSIBLE PACE MAKER PLACEMENT. PT CONDITION, GUARDED, BUT STABLE - Discharge Plan Disposition: 01 HOME, SELF-CARE Condition: Stable - Follow ups/Referrals Follow ups/Referrals: MARK CLEANING [Primary Care Provider] - 3 days - Instructions
[2017-12-01 18:50] VITALS: BP 160/71
[2017-12-01] MEDS ORDERED: MILK OF MAGNESIA PO SCH (21:00)
== END 2017-12-01 18:43 | disposition short-term general hospital (02) | DRG 312 ==
LOC: ER 13:25 → ICU 15:27
PROVIDERS: ADMIT Internal Medicine; ATTEND Internal Medicine
DX: R26.89 Other abnormalities of gait and mobility; F41.9 Anxiety disorder, unspecified; R94.31 Abnormal electrocardiogram [ECG] [EKG]; I48.91 Unspecified atrial fibrillation; R55 Syncope and collapse; R53.83 Other fatigue; I95.89 Other hypotension; K21.9 Gastro-esophageal reflux disease without esophagitis; M19.90 Unspecified osteoarthritis, unspecified site; R94.4 Abnormal results of kidney function studies; I10 Essential (primary) hypertension; Z90.12 Acquired absence of left breast and nipple; E87.6 Hypokalemia; R00.1 Bradycardia, unspecified; R53.1 Weakness; R06.02 Shortness of breath
CPT/HCPCS: 36415; 70450; 71010; 71045; 80053; 81001; 82550; 82553; 83735; 84484; 85025; 93005; 93010; 96365; 96367; 97163; 97167; 97535; 99284; A4222; J3475; J8499

== ENCOUNTER 2018-03-07 01:30 | Observation (INO) ==
[2018-03-07 01:44] VITALS: BMI 23.0
--- NOTE | 2018-03-07 02:03 | RAD ---
Chest, one view Indication: Shortness of breath Comparison: 11/29/2017 Findings: Cardiac silhouette size is stable. There is unchanged mild left hemidiaphragm elevation. Th e lungs are clear without focal infiltrates or significant pleural effusion. Impression: No acute chest process. Reported By:
--- NOTE | 2018-03-07 02:13 | DR.SOBA ---
HPI Time Seen Time Seen by Provider: 03/07/18 01:58 Primary Care Physician Primary Care Physician: TAYLOR NOEL Complaints Chief Complaint Doctors Comments: Patient presented to the ED via EMS with complaint of dyspnea and chest pain. Chief Complaint:: [facility] RESPONDED TO CALL FOR SHORTNESS OF BREATH AND CHEST PAIN. UPON ARRIVAL TO ED, PATIETN ALERT AND ORIENTED TIMES, SKIN WARM , DRY TO TOUCH. PATIENT SEEMS VERY ANXIOUS, AND ASSURES ITS HER HEART MESSING UP. PATIENT CONTINUES TO STATES , "I CAN'T BREATHE." EXPLAINED TO PATIENT OXYGEN IS 100%, TRY TO RELAX." PATIENT WITH EYE GLASSES INTACT. PATIENT STATES, "I WOKE UP AND COULDN'T BREATH." Self Treatment fo Chief Complaint: NONE Source History Provided: Patient and EMS Mode of Arrival Mode of Arrival: EMS Timing Onset of Chief Complaint: 03/07/18 PMH PMH Past Medical History: Yes Past Medical History: Anxiety, Arthritis, GERD and Hypertension Past Medical History Comment: BREAST CANCER Past Surgical History: Yes Surgical History: Hysterectomy, Mastectomy and Ortho Surgery Past Surgical History Comment: LEFT MASTECTOMY Family History History of Family Medical Conditions: Yes Family Medical History: Cancer Social History Does patient currently use any type of tobacco product: No Have you used tobacco products in the last 12 months: No Type of Tobacco Use: None Alcohol Use: None Do you use any recreational Drugs:: No Lives Where: Home infectious screening Have you traveled outside the country in the last 6 months?: No Isolation: Standard ROS Review of Systems Constitutional: No Symptoms Reported; negative Weakness Eyes: No Symptoms Reported Respiratoy: See HPI Cardiovascular: No Symptoms Reported Gastrointestinal/Abdominal: No Symptoms Reported Neurological: No Symptoms Reported Musculoskeletal: No Symptoms Reported Integumentary: No Symptoms Reported Hematologic/Lymphatic: No Symptoms Reported Endocrine: No Symptoms Reported All Other Systems: Reviewed and Negative PE Vital Signs Vitals: Temperature 98.0 F Pulse Rate [Right Brachial] 58 Pulse Rate [Left Brachial] 56 Pulse Rate [Apical] 54 Pulse Rate 57 Respiratory Rate 18 Blood Pressure [Left Arm] 174/74 Blood Pressure [Right Femoral 142/63 Artery] Blood Pressure [Right Arm] 117/75 Blood Pressure 198/84 O2 Sat by Pulse Oximetry 96 General Limitations: No Limitations General Appearance: Alert and In No Apparent Distress Head Head Exam: Normal Inspection Eyes Eye exam: Normal Appearance, PERRL and EOMI ENT ENT Exam: Normal Exam, Normal Oropharynx, Mucous Membranes Moist and TM's Normal Bilaterally Neck Neck Exam: Normal Inspection Chest Chest Inspection: Normal Inspection and Symmetric Chest Wall Rise Respiratory Respiratory Exam: Normal Lung Sounds Bilat; negative Accessory Muscle Use and Chest Wall Tenderness Respiratory Exam: Bilateral: Clear to Auscultation Cardiovascular Cardiovascular Exam: Regular Rate and Normal Rhythm Abdominal Exam Abdominal Exam: Normal Inspection and Normal Bowel Sounds Extremities Extremities Exam: Normal Inspection and Normal Capillary Refill Back Back Exam: Normal Inspection and Full ROM Neurologic Neurological Exam: Alert, Oriented X3 and CN II-XII Intact Psychiatric Psychiatric Exam: Normal Affect and Normal Mood Skin Skin Exam: Warm, Dry and Intact COURSE Consultation Called: 06:10 Consultation Comments: Dr Gray agreed to admit for chest pain protocol and r /o PE ROR Labs Reviewed Laboratory Results Reviewed?: Yes Result Diagrams: 03/08/18 05:30 03/08/18 05:30 Laboratory: 03/07/18 12:50 Sputum - Expectorated Sputum Sputum Culture - Preliminary 03/07/18 12:50 Sputum - Expectorated Sputum - Final WBC 8.1 X10^3/uL (3.6-10.0) 03/08/18 05:30 RBC 3.73 X10^6/uL (3.5-5.4) 03/08/18 05:30 Hgb 11.1 g/dL (12.0-16.0) L 03/08/18 05:30 Hct 32.1 % (36.0-47.0) L 03/08/18 05:30 MCV 86.1 fL (80.0-100.0) 03/08/18 05:30 MCH 29.8 pg (27.0-34.0) 03/08/18 05:30 MCHC 34.6 g/dL (33.0-35.0) 03/08/18 05:30 RDW 15.8 % (11.6-16.5) 03/08/18 05:30 Plt Count 251 X10^3/uL (150.0-450.0) 03/08/18 05:30 MPV 7.4 fL (7.4-11.0) 03/08/18 05:30 Neut % (Auto) 70.8 % (42.0-75.0) 03/08/18 05:30 Lymph % (Auto) 16.0 % (21.0-51.0) L 03/08/18 05:30 [place] % (Auto) 8.9 % (0.0-13.0) 03/08/18 05:30 Eos % (Auto) 3.5 % (0.9-2.9) H 03/08/18 05:30 Baso % (Auto) 0.8 % (0.2-1.0) 03/08/18 05:30 Neut # (Auto) 5.8 x10^3/uL (2.2-4.8) H 03/08/18 05:30 Lymph # (Auto) 1.3 X10^3/uL (1.3-2.9) 03/08/18 05:30 [place] # (Auto) 0.7 x10^3/uL (0.3-0.8) 03/08/18 05:30 Eos # (Auto) 0.3 x10^3/uL (0.0-0.2) H 03/08/18 05:30 Baso # (Auto) 0.1 X10^3/uL (0.0-0.1) 03/08/18 05:30 Absolute Nucleated RBC 0.0 /100WBC 03/08/18 05:30 INR Target Range - 03/07/18 02:02 INR 1.17 (0.8-1.3) 03/07/18 02:02 APTT 35.7 SECONDS (22.9-36.5) 03/07/18 02:02 PTT Comment - 03/07/18 02:02 D-Dimer 510 ng/mL (0-400) H* 03/07/18 02:02 Sodium 142 mmol/L (136-145) 03/08/18 05:30 Corrected Sodium TNP 03/08/18 05:30 Potassium 3.6 mmol/L (3.5-5.1) 03/08/18 05:30 Chloride 103 mmol/L (98-107) 03/08/18 05:30 Carbon Dioxide 32.1 mmol/L (21-32) H 03/08/18 05:30 BUN 18 mg/dL (7-18) 03/08/18 05:30 Creatinine 1.52 mg/dL (0.55-1.02) H 03/08/18 05:30 Est GFR (MDRD) Af Amer 41 (>60) L 03/08/18 05:30 Est GFR (MDRD) Non-Af 34 (>60) L 03/08/18 05:30 Glucose 78 mg/dL (65-99) 03/08/18 05:30 Calcium 8.8 mg/dL (8.5-10.1) 03/08/18 05:30 Corrected Calcium 9.7 mg/dL (8.5-10.1) 03/08/18 05:30 Magnesium 1.5 mg/dL (1.7-2.9) L 03/07/18 02:02 Total Bilirubin 0.60 mg/dL (0.2-1.0) 03/08/18 05:30 AST 176 Units/L (15-37) H 03/08/18 05:30 ALT 57 Units/L (12-78) 03/08/18 05:30 Alkaline Phosphatase 125 Units/L (46-116) H 03/08/18 05:30 Creatine Kinase 30 Units/L (26-192) 03/07/18 20:12 CK-MB (CK-2) < 1.0 ng/mL (0-4.0) 03/07/18 20:12 CK/CKMB % Calc 3.3 % (<4) 03/07/18 20:12 Troponin I < 0.02 ng/mL (0-1.5) 03/07/18 20:12 B-Natriuretic Peptide 57.3 pg/mL (0-79) 03/07/18 02:02 Total Protein 6.3 g/dL (6.4-8.2) L 03/08/18 05:30 Albumin 2.9 g/dL (3.4-5.0) L 03/08/18 05:30 Globulin 3.4 g/dL (2.5-4.5) 03/08/18 05:30 Albumin/Globulin Ratio 0.9 Ratio (1.1-2.1) L 03/08/18 05:30 Triglycerides 64 mg/dL (0-150) 03/08/18 05:30 Cholesterol 157 mg/dL (0-200) 03/08/18 05:30 LDL Cholesterol, Calc 100 mg/dL (0-100) 09/19/18 05:30 HDL Cholesterol 44 mg/dL (40-60) 03/08/18 05:30 Cholesterol/HDL Ratio 3.6 (0.0-5.0) 03/08/18 05:30 Other Results Comments: Elevated D Dimer 510 EKG Rhythm: NSR Diagnosis Discharge Problem: Chest pain, Dyspnea ADDITIONAL NOTES Additional Notes Additional Notes: Patient admitted
[2018-03-07 02:15] LABS: BASOPHILS # (AUTO) 0.1 X10^3/uL (0.0-0.1); BASOPHILS % (AUTO) 1.1 % (0.2-1.0); EOSINOPHILS # (AUTO) 0.4 x10^3/uL (0.0-0.2); EOSINOPHILS % (AUTO) 3.8 % (0.9-2.9); HEMATOCRIT 35.1 % (36.0-47.0); LYMPHOCYTES # (AUTO) 1.9 X10^3/uL (1.3-2.9); LYMPHOCYTES % (AUTO) 19.2 % (21.0-51.0); MEAN CORPUSCULAR HEMOGLOBIN 29.5 pg (27.0-34.0); MEAN CORPUSCULAR HGB CONC 34.2 g/dL (33.0-35.0); MEAN CORPUSCULAR VOLUME 86.2 fL (80.0-100.0); MONOCYTES # (AUTO) 0.7 x10^3/uL (0.3-0.8); MONOCYTES % (AUTO) 6.9 % (0.0-13.0); NEUTROPHILS # (AUTO) 6.8 x10^3/uL (2.2-4.8); PLATELET COUNT 272 X10^3/uL (150.0-450.0); RED BLOOD COUNT 4.08 X10^6/uL (3.5-5.4); RED CELL DISTRIBUTION WIDTH 15.6 % (11.6-16.5); WHITE BLOOD COUNT 9.9 X10^3/uL (3.6-10.0)
[2018-03-07 02:31] LABS: BLOOD UREA NITROGEN 20 mg/dL (7-18); CALCIUM 9.4 mg/dL (8.5-10.1); CARBON DIOXIDE 29.3 mmol/L (21-32); CHLORIDE 104 mmol/L (98-107); CREATININE 1.54 mg/dL (0.55-1.02); SODIUM 143 mmol/L (136-145); TROPONIN I < 0.02 ng/mL (0-1.5); eGFR NON BLACK RACES 34 (>60)
[2018-03-07 02:35] LABS: ALANINE AMINOTRANSFERASE 18 Units/L (12-78); ALBUMIN 3.5 g/dL (3.4-5.0); ALKALINE PHOSPHATASE 92 Units/L (46-116); ASPARTATE AMINO TRANSFERASE 22 Units/L (15-37); B-TYPE NATRIURETIC PEPTIDE 57.3 pg/mL (0-79); CKMB % 2.4 % (<4); CREATINE KINASE 42 Units/L (26-192); CREATINE KINASE MB < 1.0 ng/mL (0-4.0); MAGNESIUM 1.5 mg/dL (1.7-2.9); TOTAL PROTEIN 7.3 g/dL (6.4-8.2)
[2018-03-07] MEDS ORDERED: NORCO 10/325 TAB PO PRN (08:03)
[2018-03-07 08:32] LABS: CKMB % 2.6 % (<4); CREATINE KINASE 38 Units/L (26-192); CREATINE KINASE MB < 1.0 ng/mL (0-4.0); TROPONIN I < 0.02 ng/mL (0-1.5)
[2018-03-07] MEDS: NORVASC TAB 10 MG PO SCH (08:42)
[2018-03-07] MEDS: ELIQUIS PO SCH ×2 (08:42→21:00)
[2018-03-07] MEDS: XANAX PO SCH ×2 (08:42→21:00)
[2018-03-07] MEDS: MICRO K EXTEN CAP 10 MEQ PO SCH (08:43)
[2018-03-07] MEDS: LASIX PO SCH ×2 (08:43→13:09)
[2018-03-07] MEDS: CORDARONE TAB 200 MG PO SCH (08:55)
[2018-03-07] MEDS ORDERED: ROBITUSSIN DM PO PRN (09:30)
[2018-03-07] MEDS ORDERED: PHARMACY CONSULT - DOSE _____ XX SCH (10:00)
[2018-03-07] MEDS: DUONEB 0.5 MG/3 MG NEB SCH ×3 (12:40→20:40)
--- NOTE | 2018-03-07 12:51 | DR.H&P ---
H&P - History & Physical for Day of: H&P Date: 03/07/18 - Chief Complaint Chief Complaint: sob, cough - History of Present Illness History of Present Illness: 87 WF ER ADMISSION AFTER PRESENTING WITH CO SOB AND CHEST PAIN. PT HAS HOARSE RASPY VOICE, CO BEING SICK ALL WEEK "COUGHING HER HEAD OFF" AND SORENESS TO CHEST. PT SON STATES SHE WAS VERY SOB THIS AM. PT HAS PMH OF AFIB, CHF, OA, HTN, GERD, KENROY. PT ADMITTED FOR SERIAL CE, EKG'S EVALUATION OF ACUTE ILLNESS. - Past Medical History Past Medical History: Hypertension, Anxiety, GERD, Arthritis - Past Surgical History Surgical History: Hysterectomy, Mastectomy, Ortho Surgery - Family History Family Medical History: Cancer - Social History Does patient currently use any type of tobacco product: No Have you used tobacco products in the last 12 months: No Type of Tobacco Use: None Alcohol Use: None Drug Use: None - Medications Home Medications: Cephalosporins Allergy (Verified 11/29/17 13:23) codeine Allergy (Verified 11/29/17 13:23) Penicillins Allergy (Verified 11/29/17 13:23) Sulfa (Sulfonamide Antibiotics) [SULFA] Allergy (Verified 11/29/17 13:23) vancomycin Allergy (Verified 11/29/17 13:23) RASH CONTINUE taking the following medications alprazolam 0.25 tab PO HS 03/07/18 [History] apixaban [Eliquis] 1 tab PO BID 03/07/18 [History] furosemide 20 mg PO QDAY 03/07/18 [History] loratadine 10 mg PO QDAY 03/07/18 [History] - Review of Systems Constitutional: Weakness Eyes: No Symptoms Reported ENT: No Symptoms Reported Respiratory: Cough, Shortness of Breath, Pleuritic Pain Cardiovascular: Chest Pain, Edema. denies: Light Headedness Gastrointestinal: No Symptoms Reported Genitourinary: No Symptoms Reported Musculoskeletal: Back Pain Skin: No Symptoms Reported Neurological: Weakness - Physical Exam Vital Signs: Temperature 98 F Pulse Rate [Left Brachial] 70 Pulse Rate [Apical] 54 Pulse Rate 60 Respiratory Rate 20 Blood Pressure [Left Arm] 166/77 Blood Pressure [Right Femoral 142/63 Artery] Blood Pressure [Right Arm] 149/88 Blood Pressure 198/84 O2 Sat by Pulse Oximetry 99 Oriented: Normal Eyes: Normal Ear: Normal Throat: Normal Respiratory: RLL Diminished, LLL Diminished Cardiovascular: Normal, Edema (BILATERAL TRACE EDEMA) : Normal Auscultation: Bowel Sounds: Normal Palpation: Normal Tenderness: Normal Skin: Normal Musculoskeletal: Back:Lumbar Psychiatric: Anxiety Affect: Anxious Speech Pattern: Clear, Appropriate - Assessment/Plan (1) Dyspnea Qualifiers: Dyspnea type: shortness of breath Qualified Code(s): R06.02 - Shortness of breath; R06.00 - Dyspnea, unspecified; R06.01 - Orthopnea Status: Acute (2) Chest pain Qualifiers: Chest pain type: unspecified Qualified Code(s): R07.9 - Chest pain, unspecified Status: Acute Plan: ADMIT, SERIAL EKG'S AND CE'S, CXR ON ADMISSION. VQ SCAN ORDERED FOR THIS AM FROM ER, VERIFY AND RESUME. HOME MEDS, ELIQUIS. RESP CONSULT, JET NEBS, ROBITUSSIN, ZITHROMAX (3) Atrial fibrillation Status: Acute (4) Acute bronchitis Status: Acute (5) Hypertension Status: Chronic (6) Arthritis Status: Chronic (7) History of left mastectomy Status: Chronic - Allergies Allergies/Adverse Reactions: Allergies Allergy/AdvReac Type Severity Reaction Status Date / Time Cephalosporins Allergy Verified 11/29/17 13:23 codeine Allergy Verified 11/29/17 13:23 Penicillins Allergy Verified 11/29/17 13:23 Sulfa (Sulfonamide Allergy Verified 11/29/17 13:23 Antibiotics) [SULFA] vancomycin Allergy RASH Verified 11/29/17 13:23
[2018-03-07 14:46] LABS: CKMB % 3.2 % (<4); CREATINE KINASE 31 Units/L (26-192); CREATINE KINASE MB < 1.0 ng/mL (0-4.0); TROPONIN I < 0.02 ng/mL (0-1.5)
[2018-03-07 20:43] LABS: CKMB % 3.3 % (<4); CREATINE KINASE 30 Units/L (26-192); CREATINE KINASE MB < 1.0 ng/mL (0-4.0); TROPONIN I < 0.02 ng/mL (0-1.5)
[2018-03-07] MEDS: COLACE CAP 100 MG PO SCH (21:00)
[2018-03-07] MEDS: MILK OF MAGNESIA PO PRN (22:30)
[2018-03-08 06:14] LABS: BASOPHILS # (AUTO) 0.1 X10^3/uL (0.0-0.1); BASOPHILS % (AUTO) 0.8 % (0.2-1.0); EOSINOPHILS # (AUTO) 0.3 x10^3/uL (0.0-0.2); EOSINOPHILS % (AUTO) 3.5 % (0.9-2.9); HEMATOCRIT 32.1 % (36.0-47.0); HEMOGLOBIN 11.1 g/dL (12.0-16.0); LYMPHOCYTES # (AUTO) 1.3 X10^3/uL (1.3-2.9); MEAN CORPUSCULAR HEMOGLOBIN 29.8 pg (27.0-34.0); MEAN CORPUSCULAR HGB CONC 34.6 g/dL (33.0-35.0); MEAN CORPUSCULAR VOLUME 86.1 fL (80.0-100.0); MEAN PLATELET VOLUME 7.4 fL (7.4-11.0); MONOCYTES # (AUTO) 0.7 x10^3/uL (0.3-0.8); MONOCYTES % (AUTO) 8.9 % (0.0-13.0); NEUTROPHILS # (AUTO) 5.8 x10^3/uL (2.2-4.8); NEUTROPHILS % (AUTO) 70.8 % (42.0-75.0); PLATELET COUNT 251 X10^3/uL (150.0-450.0); RED BLOOD COUNT 3.73 X10^6/uL (3.5-5.4); RED CELL DISTRIBUTION WIDTH 15.8 % (11.6-16.5); WHITE BLOOD COUNT 8.1 X10^3/uL (3.6-10.0)
--- NOTE | 2018-03-08 06:21 | RAD ---
HISTORY: Shortness of breath Study: Chest AP portable Comparison: 03/07/2018 Findings: The heart is enlarged. No congestive heart failure is noted. The aorta is calcified and ectatic. The lung carvalho are clear. No pleural effusions are identified. The bony thorax is unremarkable. IMPRESSION: Moderate cardiomegaly without congestive heart failure No infiltrates Reported By:
[2018-03-08 06:31] LABS: ALANINE AMINOTRANSFERASE 57 Units/L (12-78); ALBUMIN 2.9 g/dL (3.4-5.0); ALKALINE PHOSPHATASE 125 Units/L (46-116); ASPARTATE AMINO TRANSFERASE 176 Units/L (15-37); BLOOD UREA NITROGEN 18 mg/dL (7-18); CALCIUM 8.8 mg/dL (8.5-10.1); CARBON DIOXIDE 32.1 mmol/L (21-32); CHLORIDE 103 mmol/L (98-107); CHOL/HDL RATIO 3.6 (0.0-5.0); CHOLESTEROL 157 mg/dL (0-200); COR CA(FOR HYPOALB) 9.7 mg/dL (8.5-10.1); CREATININE 1.52 mg/dL (0.55-1.02); HDL CHOLESTEROL 44 mg/dL (40-60); SODIUM 142 mmol/L (136-145); TOTAL PROTEIN 6.3 g/dL (6.4-8.2); TRIGLYCERIDES 64 mg/dL (0-150); eGFR NON BLACK RACES 34 (>60)
[2018-03-08] MEDS: LASIX PO SCH (08:41)
[2018-03-08] MEDS: MICRO K EXTEN CAP 10 MEQ PO SCH (08:41)
[2018-03-08] MEDS: XANAX PO SCH ×2 (08:42→20:34)
[2018-03-08] MEDS: NORVASC TAB 10 MG PO SCH (08:43)
[2018-03-08] MEDS: ELIQUIS PO SCH ×2 (08:44→20:32)
[2018-03-08] MEDS: CORDARONE TAB 200 MG PO SCH (08:52)
[2018-03-08] MEDS ORDERED: NS 250 ML IV 250 ML IV ONE (08:54)
[2018-03-08] MEDS: ZITHROMAX INJ 500 MG VIAL 500 MG in NS 250 ML IV 250 ML IV SCH (08:55)
[2018-03-08] MEDS: DUONEB 0.5 MG/3 MG NEB SCH ×4 (09:15→21:41)
[2018-03-08] MEDS ORDERED: PULMICORT NEB TX 0.5 MG NEB SCH (09:30)
[2018-03-08] MEDS: ROBITUSSIN DM PO SCH ×3 (13:00→20:35)
--- NOTE | 2018-03-08 17:35 | PCM.PROG ---
Progress Note - Progress Note for Day of Date of Exam: 03/08/18 - Subjective Subjective: 87 WF ER ADMIT ON 03/07 WITH SOB. PT HAS HAD COUGH WITH WHEEZING AND SOB X 1 WEEKS. PT HAD SERIAL CE AND EKG'S STABLE. PT CURRENTLY ON SUPPLEMENTAL O2, CO IMPROVED SOB AT REST, CONTINUES WITH COUGH AND SORE THROAT, WHEEZING. PT ON IV ZITHROMAX, CONSULT RESP FOR JET NEBS, ANTITUSSIVE MEDICATION, BP CONTROL. REPEAT AM LABS - Past Medical Family Social History Past Med/Fam/Surg Hx: No changes since H&P Allergies: Allergies Cephalosporins Allergy (Verified 11/29/17 13:23) codeine Allergy (Verified 11/29/17 13:23) Penicillins Allergy (Verified 11/29/17 13:23) Sulfa (Sulfonamide Antibiotics) [SULFA] Allergy (Verified 11/29/17 13:23) vancomycin Allergy (Verified 11/29/17 13:23) RASH - Review of Systems ROS: No change since H&P - Vital Signs and I&O's Vital Signs: Temperature 98.2 F Pulse Rate [Right Brachial] 56 Pulse Rate [Left Brachial] 56 Pulse Rate [Apical] 54 Pulse Rate 57 Respiratory Rate 18 Blood Pressure [Left Arm] 174/74 Blood Pressure [Right Femoral 142/63 Artery] Blood Pressure [Right Arm] 126/60 Blood Pressure 198/84 O2 Sat by Pulse Oximetry 96 Intake and Output: Intake & Output 03/06/18 03/07/18 03/08/18 03/09/18 11:59 11:59 11:59 11:59 Intake Total 390 / 390 420 / 420 Balance 390 / 390 420 / 420 - Physical Exam Oriented: Normal Eyes: Normal Ear: Normal Throat: Normal Respiratory: Diminished, Wheezes Cardiovascular: Normal, Edema (BILATERAL TRACE EDEMA) : Normal Auscultation: Bowel Sounds: Normal Tenderness: Normal Skin: Normal Musculoskeletal: Back:Lumbar Psychiatric: Anxiety Affect: Anxious Speech Pattern: Clear, Appropriate - Laboratory and Diagnostics Result Diagrams: 03/08/18 05:30 03/08/18 05:30 Labs: 03/07/18 12:50 Sputum - Expectorated Sputum Sputum Culture - Preliminary 03/07/18 12:50 Sputum - Expectorated Sputum - Final Laboratory WBC 8.1 X10^3/uL (3.6-10.0) 03/08/18 05:30 RBC 3.73 X10^6/uL (3.5-5.4) 03/08/18 05:30 Hgb 11.1 g/dL (12.0-16.0) L 03/08/18 05:30 Hct 32.1 % (36.0-47.0) L 03/08/18 05:30 MCV 86.1 fL (80.0-100.0) 03/08/18 05:30 MCH 29.8 pg (27.0-34.0) 03/08/18 05:30 MCHC 34.6 g/dL (33.0-35.0) 03/08/18 05:30 RDW 15.8 % (11.6-16.5) 03/08/18 05:30 Plt Count 251 X10^3/uL (150.0-450.0) 03/08/18 05:30 MPV 7.4 fL (7.4-11.0) 03/08/18 05:30 Neut % (Auto) 70.8 % (42.0-75.0) 03/08/18 05:30 Lymph % (Auto) 16.0 % (21.0-51.0) L 03/08/18 05:30 [place] % (Auto) 8.9 % (0.0-13.0) 03/08/18 05:30 Eos % (Auto) 3.5 % (0.9-2.9) H 03/08/18 05:30 Baso % (Auto) 0.8 % (0.2-1.0) 03/08/18 05:30 Neut # (Auto) 5.8 x10^3/uL (2.2-4.8) H 03/08/18 05:30 Lymph # (Auto) 1.3 X10^3/uL (1.3-2.9) 03/08/18 05:30 [place] # (Auto) 0.7 x10^3/uL (0.3-0.8) 03/08/18 05:30 Eos # (Auto) 0.3 x10^3/uL (0.0-0.2) H 03/08/18 05:30 Baso # (Auto) 0.1 X10^3/uL (0.0-0.1) 03/08/18 05:30 Absolute Nucleated RBC 0.0 /100WBC 03/08/18 05:30 INR Target Range - 03/07/18 02:02 INR 1.17 (0.8-1.3) 03/07/18 02:02 APTT 35.7 SECONDS (22.9-36.5) 03/07/18 02:02 PTT Comment - 03/07/18 02:02 D-Dimer 510 ng/mL (0-400) H* 03/07/18 02:02 Sodium 142 mmol/L (136-145) 03/08/18 05:30 Corrected Sodium TNP 03/08/18 05:30 Potassium 3.6 mmol/L (3.5-5.1) 03/08/18 05:30 Chloride 103 mmol/L (98-107) 03/08/18 05:30 Carbon Dioxide 32.1 mmol/L (21-32) H 03/08/18 05:30 BUN 18 mg/dL (7-18) 03/08/18 05:30 Creatinine 1.52 mg/dL (0.55-1.02) H 03/08/18 05:30 Est GFR (MDRD) Af Amer 41 (>60) L 03/08/18 05:30 Est GFR (MDRD) Non-Af 34 (>60) L 03/08/18 05:30 Glucose 78 mg/dL (65-99) 03/08/18 05:30 Calcium 8.8 mg/dL (8.5-10.1) 03/08/18 05:30 Corrected Calcium 9.7 mg/dL (8.5-10.1) 03/08/18 05:30 Magnesium 1.5 mg/dL (1.7-2.9) L 03/07/18 02:02 Total Bilirubin 0.60 mg/dL (0.2-1.0) 03/08/18 05:30 AST 176 Units/L (15-37) H 03/08/18 05:30 ALT 57 Units/L (12-78) 03/08/18 05:30 Alkaline Phosphatase 125 Units/L (46-116) H 03/08/18 05:30 Creatine Kinase 30 Units/L (26-192) 03/07/18 20:12 CK-MB (CK-2) < 1.0 ng/mL (0-4.0) 03/07/18 20:12 CK/CKMB % Calc 3.3 % (<4) 03/07/18 20:12 Troponin I < 0.02 ng/mL (0-1.5) 03/07/18 20:12 B-Natriuretic Peptide 57.3 pg/mL (0-79) 03/07/18 02:02 Total Protein 6.3 g/dL (6.4-8.2) L 03/08/18 05:30 Albumin 2.9 g/dL (3.4-5.0) L 03/08/18 05:30 Globulin 3.4 g/dL (2.5-4.5) 03/08/18 05:30 Albumin/Globulin Ratio 0.9 Ratio (1.1-2.1) L 03/08/18 05:30 Triglycerides 64 mg/dL (0-150) 03/08/18 05:30 Cholesterol 157 mg/dL (0-200) 03/08/18 05:30 LDL Cholesterol, Calc 100 mg/dL (0-100) 03/08/18 05:30 HDL Cholesterol 44 mg/dL (40-60) 03/08/18 05:30 Cholesterol/HDL Ratio 3.6 (0.0-5.0) 03/08/18 05:30 - Plan (1) Dyspnea Status: Acute Qualifiers: Dyspnea type: shortness of breath Qualified Code(s): R06.02 - Shortness of breath; R06.00 - Dyspnea, unspecified; R06.01 - Orthopnea (2) Chest pain Status: Acute Qualifiers: Chest pain type: unspecified Qualified Code(s): R07.9 - Chest pain, unspecified Plan: SERIAL EKG'S AND CE'S, CXR ON ADMISSION. VQ SCAN ORDERED FOR THIS AM FROM ER, VERIFY AND RESUME. HOME MEDS, ELIQUIS (3) Atrial fibrillation Status: Acute (4) Acute bronchitis Status: Acute Plan: RESP CONSULT, JET NEBS, ROBITUSSIN, ZITHROMAX. BUDESONIDE NEB (5) Hypertension Status: Chronic (6) Arthritis Status: Chronic (7) History of left mastectomy Status: Chronic
[2018-03-08] MEDS: COLACE CAP 100 MG PO SCH (20:32)
[2018-03-08] MEDS: MILK OF MAGNESIA PO PRN (20:41)
[2018-03-09 06:19] LABS: BASOPHILS # (AUTO) 0.1 X10^3/uL (0.0-0.1); BASOPHILS % (AUTO) 0.7 % (0.2-1.0); EOSINOPHILS # (AUTO) 0.3 x10^3/uL (0.0-0.2); EOSINOPHILS % (AUTO) 3.4 % (0.9-2.9); HEMATOCRIT 31.6 % (36.0-47.0); HEMOGLOBIN 10.8 g/dL (12.0-16.0); LYMPHOCYTES # (AUTO) 1.3 X10^3/uL (1.3-2.9); LYMPHOCYTES % (AUTO) 14.4 % (21.0-51.0); MEAN CORPUSCULAR HEMOGLOBIN 29.6 pg (27.0-34.0); MEAN CORPUSCULAR HGB CONC 34.3 g/dL (33.0-35.0); MEAN CORPUSCULAR VOLUME 86.1 fL (80.0-100.0); MEAN PLATELET VOLUME 7.3 fL (7.4-11.0); MONOCYTES # (AUTO) 0.7 x10^3/uL (0.3-0.8); MONOCYTES % (AUTO) 8.4 % (0.0-13.0); NEUTROPHILS # (AUTO) 6.5 x10^3/uL (2.2-4.8); NEUTROPHILS % (AUTO) 73.1 % (42.0-75.0); PLATELET COUNT 242 X10^3/uL (150.0-450.0); RED BLOOD COUNT 3.67 X10^6/uL (3.5-5.4); RED CELL DISTRIBUTION WIDTH 15.4 % (11.6-16.5); WHITE BLOOD COUNT 8.8 X10^3/uL (3.6-10.0)
[2018-03-09 06:37] LABS: ALANINE AMINOTRANSFERASE 41 Units/L (12-78); ALBUMIN 2.9 g/dL (3.4-5.0); ALKALINE PHOSPHATASE 115 Units/L (46-116); ASPARTATE AMINO TRANSFERASE 59 Units/L (15-37); BLOOD UREA NITROGEN 19 mg/dL (7-18); CALCIUM 8.8 mg/dL (8.5-10.1); CARBON DIOXIDE 32.4 mmol/L (21-32); CHLORIDE 101 mmol/L (98-107); COR CA(FOR HYPOALB) 9.7 mg/dL (8.5-10.1); CREATININE 1.35 mg/dL (0.55-1.02); SODIUM 140 mmol/L (136-145); TOTAL PROTEIN 6.3 g/dL (6.4-8.2); eGFR NON BLACK RACES 39 (>60)
[2018-03-09] MEDS: ZITHROMAX INJ 500 MG VIAL 500 MG in NS 250 ML IV 250 ML IV SCH (09:12)
[2018-03-09] MEDS: ROBITUSSIN DM PO SCH ×2 (09:13→14:22)
[2018-03-09] MEDS: ELIQUIS PO SCH (09:13)
[2018-03-09] MEDS: MICRO K EXTEN CAP 10 MEQ PO SCH (09:13)
[2018-03-09] MEDS: LASIX PO SCH (09:13)
[2018-03-09] MEDS: CORDARONE TAB 200 MG PO SCH (09:14)
[2018-03-09] MEDS: NORVASC TAB 10 MG PO SCH (09:14)
[2018-03-09] MEDS: XANAX PO SCH (09:15)
[2018-03-09] MEDS: DUONEB 0.5 MG/3 MG NEB SCH (09:32)
[2018-03-09] MEDS ORDERED: NYSTATIN POWDER TOP SCH (11:00)
[2018-03-09 12:45] VITALS: BP 127/60
== END 2018-03-09 15:39 | disposition home or self-care (01) ==
LOC: MED/SURG 01:31 → ER 01:31 → MED/SURG 07:19
PROVIDERS: ADMIT Internal Medicine; ATTEND Internal Medicine
DX: R06.02 Shortness of breath; I48.91 Unspecified atrial fibrillation; Z79.899 Other long term (current) drug therapy; R60.0 Localized edema; I10 Essential (primary) hypertension; Z90.12 Acquired absence of left breast and nipple; R94.4 Abnormal results of kidney function studies; R94.31 Abnormal electrocardiogram [ECG] [EKG]; R07.89 Other chest pain; J20.8 Acute bronchitis due to other specified organisms; Z79.01 Long term (current) use of anticoagulants; K21.9 Gastro-esophageal reflux disease without esophagitis; M13.89 Other specified arthritis, multiple sites; R94.5 Abnormal results of liver function studies; F41.8 Other specified anxiety disorders; R26.89 Other abnormalities of gait and mobility
CPT/HCPCS: 36415; 71010; 71045; 80053; 80061; 82550; 82553; 83735; 83880; 84484; 85025; 85378; 85610; 85730; 87040; 87070; 87205; 93005; 93010; 94640; 94760; 96365; 97162; 99284; A4222; G0378; J0456; J7050; J7620; J7626

== ENCOUNTER 2018-08-02 13:36 | Observation (INO) ==
--- NOTE | 2018-08-02 14:28 | DR.DIZZY ---
HPI Time seen Time Seen by Provider: 08/02/18 14:27 PCP Primary Care Physician: TAYLOR NOEL Complaint Chief Complaint:: EMS STATED THAT WHEN THEY ARRIVED PATIENT WAS HAVING WHAT APPEARED TO BE A PANIC ATTACK OR ANXIETY. THEY HAS WAS VERY WARM AND SHE WAS NOT WEARING HER HOME O2. SINCE PATIENT SHE WOULD NOT CALM DOWN THEY BROUGHT HER IN FOR FUTHER EVALUATION. Source History Provided: Patient and EMS Mode of Arrival Mode of Arrival: EMS Timing Onset of Chief Complaint: 08/02/18 PMH PMH Past Medical History: Yes Past Medical History: Anxiety, Arthritis, Dementia, GERD and Hypertension Past Surgical History: Yes Surgical History: Hysterectomy, Mastectomy and Ortho Surgery Family History History of Family Medical Conditions: Yes Family Medical History: Cancer Social History Does patient currently use any type of tobacco product: No Have you used tobacco products in the last 12 months: No Type of Tobacco Use: None Does any household member use tobacco: No Alcohol Use: None Do you use any recreational Drugs:: No Lives With: Family Lives Where: Home infectious screening In the last 2 months have you had wt loss of >10#?: NO Have you had fever, night sweats or hemotysis?: No Have you traveled outside the country in the last 6 months?: No Isolation: Standard PE Vital Signs Vitals: Temperature 98.1 F Pulse Rate [Left Brachial] 57 Pulse Rate 72 Respiratory Rate 17 Blood Pressure [Left Arm] 168/74 Blood Pressure [Right Femoral 142/63 Artery] Blood Pressure [Right Arm] 158/70 Blood Pressure 180/73 O2 Sat by Pulse Oximetry 100 ROR Labs Reviewed Result Diagrams: 08/02/18 14:54 08/02/18 14:54 Laboratory: WBC 7.0 X10^3/uL (3.6-10.0) 08/02/18 14:54 RBC 3.45 X10^6/uL (3.5-5.4) L 08/02/18 14:54 Hgb 10.4 g/dL (12.0-16.0) L 08/02/18 14:54 Hct 31.5 % (36.0-47.0) L 08/02/18 14:54 MCV 91.5 fL (80.0-100.0) 08/02/18 14:54 MCH 30.2 pg (27.0-34.0) 08/02/18 14:54 MCHC 33.0 g/dL (33.0-35.0) 08/02/18 14:54 RDW 14.9 % (11.6-16.5) 08/02/18 14:54 Plt Count 277 X10^3/uL (150.0-450.0) 08/02/18 14:54 MPV 7.1 fL (7.4-11.0) L 08/02/18 14:54 Neut % (Auto) 71.0 % (42.0-75.0) 08/02/18 14:54 Lymph % (Auto) 18.3 % (21.0-51.0) L 08/02/18 14:54 [place] % (Auto) 7.8 % (0.0-13.0) 08/02/18 14:54 Eos % (Auto) 2.1 % (0.9-2.9) 08/02/18 14:54 Baso % (Auto) 0.8 % (0.2-1.0) 08/02/18 14:54 Neut # (Auto) 4.9 x10^3/uL (2.2-4.8) H 08/02/18 14:54 Lymph # (Auto) 1.3 X10^3/uL (1.3-2.9) 08/02/18 14:54 [place] # (Auto) 0.5 x10^3/uL (0.3-0.8) 08/02/18 14:54 Eos # (Auto) 0.1 x10^3/uL (0.0-0.2) 08/02/18 14:54 Baso # (Auto) 0.1 X10^3/uL (0.0-0.1) 08/02/18 14:54 Absolute Nucleated RBC 0.0 /100WBC 08/02/18 14:54 Sodium 142 mmol/L (136-145) 08/02/18 14:54 Corrected Sodium TNP 08/02/18 14:54 Potassium 4.6 mmol/L (3.5-5.1) 08/02/18 14:54 Chloride 106 mmol/L (98-107) 08/02/18 14:54 Carbon Dioxide 30.2 mmol/L (21-32) 08/02/18 14:54 BUN 16 mg/dL (7-18) 08/02/18 14:54 Creatinine 1.48 mg/dL (0.55-1.02) H 08/02/18 14:54 Est GFR (MDRD) Af Amer 43 (>60) L 08/02/18 14:54 Est GFR (MDRD) Non-Af 35 (>60) L 08/02/18 14:54 Glucose 105 mg/dL (65-99) H 08/02/18 14:54 Calcium 8.7 mg/dL (8.5-10.1) 08/02/18 14:54 Corrected Calcium 9.4 mg/dL (8.5-10.1) 08/02/18 14:54 Total Bilirubin 0.30 mg/dL (0.2-1.0) 08/02/18 14:54 AST 28 Units/L (15-37) 08/02/18 14:54 ALT 21 Units/L (12-78) 08/02/18 14:54 Alkaline Phosphatase 120 Units/L (46-116) H 08/02/18 14:54 Creatine Kinase 29 Units/L (26-192) 08/02/18 14:54 CK-MB (CK-2) < 1.0 ng/mL (0-4.0) 08/02/18 14:54 CK/CKMB % Calc 3.5 % (<4) 08/02/18 14:54 Troponin I < 0.02 ng/mL (0-1.5) 08/02/18 14:54 Total Protein 6.4 g/dL (6.4-8.2) 08/02/18 14:54 Albumin 3.1 g/dL (3.4-5.0) L 08/02/18 14:54 Globulin 3.3 g/dL (2.5-4.5) 08/02/18 14:54 Albumin/Globulin Ratio 0.9 Ratio (1.1-2.1) L 08/02/18 14:54 Specimen Type Random urine 08/02/18 17:15 Urine Color Yellow (YELLOW) 08/02/18 17:15 Urine Appearance Clear (CLEAR) 08/02/18 17:15 Urine pH 8.0 (5.0 - 8.0) 08/02/18 17:15 Ur Specific [place] 1.010 (1.000-1.030) 08/02/18 17:15 Urine Protein Negative (NEGATIVE) 08/02/18 17:15 Urine Glucose (UA) Negative (NEGATIVE) 08/02/18 17:15 Urine Ketones Negative (NEGATIVE) 08/02/18 17:15 Urine Occult Blood Negative (NEGATIVE) 08/02/18 17:15 Urine Nitrite Negative (NEGATIVE) 08/02/18 17:15 Urine Bilirubin Negative (NEGATIVE) 08/02/18 17:15 Urine Urobilinogen Normal (NORMAL) 08/02/18 17:15 Ur Leukocyte Esterase 1+ (NEGATIVE) 08/02/18 17:15 Urine RBC None seen /HPF (NONE SEEN) 08/02/18 17:15 Urine WBC 0-2 /HPF (NONE SEEN) 08/02/18 17:15 Ur Squamous Epith Cells Few /HPF (NEGATIVE) 08/02/18 17:15 Urine Bacteria Trace /HPF (NEGATIVE) 08/02/18 17:15 Ur Culture Indicated? No/not indicated 08/02/18 17:15 Influenza Type A (PCR) Negative (NEGATIVE) 08/02/18 14:46 Influenza Type B (PCR) Negative (NEGATIVE) 08/02/18 14:46 Diagnosis Discharge Problem: SOB (shortness of breath), Pleural effusion Pneumonia Qualifiers: Pneumonia type: due to unspecified organism Laterality: left Lung location: lower lobe of lung Qualified Code(s): J18.1 - Lobar pneumonia, unspecified organism Instructions Instructions: Shortness of Breath, Adult, [id number] Pleural Effusion Community-Acquired Pneumonia, Adult
[2018-08-02 15:04] LABS: BASOPHILS # (AUTO) 0.1 X10^3/uL (0.0-0.1); BASOPHILS % (AUTO) 0.8 % (0.2-1.0); EOSINOPHILS # (AUTO) 0.1 x10^3/uL (0.0-0.2); EOSINOPHILS % (AUTO) 2.1 % (0.9-2.9); HEMATOCRIT 31.5 % (36.0-47.0); HEMOGLOBIN 10.4 g/dL (12.0-16.0); LYMPHOCYTES # (AUTO) 1.3 X10^3/uL (1.3-2.9); LYMPHOCYTES % (AUTO) 18.3 % (21.0-51.0); MEAN CORPUSCULAR HEMOGLOBIN 30.2 pg (27.0-34.0); MEAN CORPUSCULAR VOLUME 91.5 fL (80.0-100.0); MEAN PLATELET VOLUME 7.1 fL (7.4-11.0); MONOCYTES # (AUTO) 0.5 x10^3/uL (0.3-0.8); MONOCYTES % (AUTO) 7.8 % (0.0-13.0); NEUTROPHILS # (AUTO) 4.9 x10^3/uL (2.2-4.8); PLATELET COUNT 277 X10^3/uL (150.0-450.0); RED BLOOD COUNT 3.45 X10^6/uL (3.5-5.4); RED CELL DISTRIBUTION WIDTH 14.9 % (11.6-16.5)
[2018-08-02 15:18] LABS: BLOOD UREA NITROGEN 16 mg/dL (7-18); CALCIUM 8.7 mg/dL (8.5-10.1); CARBON DIOXIDE 30.2 mmol/L (21-32); CHLORIDE 106 mmol/L (98-107); CREATININE 1.48 mg/dL (0.55-1.02); SODIUM 142 mmol/L (136-145); TROPONIN I < 0.02 ng/mL (0-1.5); eGFR NON BLACK RACES 35 (>60)
[2018-08-02 15:22] LABS: ALANINE AMINOTRANSFERASE 21 Units/L (12-78); ALBUMIN 3.1 g/dL (3.4-5.0); ALKALINE PHOSPHATASE 120 Units/L (46-116); ASPARTATE AMINO TRANSFERASE 28 Units/L (15-37); CKMB % 3.5 % (<4); COR CA(FOR HYPOALB) 9.4 mg/dL (8.5-10.1); CREATINE KINASE 29 Units/L (26-192); CREATINE KINASE MB < 1.0 ng/mL (0-4.0); TOTAL PROTEIN 6.4 g/dL (6.4-8.2)
--- NOTE | 2018-08-02 15:32 | CT ---
HEAD CT WITHOUT IV CONTRAST CLINICAL INDICATION: Severe headache for 3 days TECHNIQUE: Axial CT images from skull base to vertex without IV contrast.Dose reduction techniques including Automated Exposure Control (AEC) and adjustment of mA and kV were utlized. COMPARISON: 11/29/2017 FINDINGS: Stable right falcine meningioma Diffuse patchy and confluent white matter hypoattenuation with associated volume loss. There is no evidence of acute infarction, intracranial hemorrhage, mass effect, or abnormal extra-axial collection. The density of the larger dural venous sinuses is normal. Age-related, ex-vacuo dilatation of the ventricles and sulci. The skull base and calvarium are normal. The included paranasal sinuses and mastoid air cells are predominantly clear. IMPRESSION: 1. No acute intracranial abnormality. Chronic microangiopathic changes and ex vacuo dilatation of the ventricles and sulci. 2. Stable falcine meningioma. Reported By:
--- NOTE | 2018-08-02 16:12 | RAD ---
AP chest Indication: Shortness of breath Comparison: 03/08/2018 Findings: The patient is rotated. The trachea is midline. Heart size is enlarged, unchanged. Moderate tortuosity and calcified atherosclerotic disease of the descending thoracic aorta. Chronic interstitial lung changes are noted bilaterally. Increased opacity within the retrocardiac left lower lobe, recommend correlation with follow-up lateral chest radiograph for improved characterization. Blunting of left costophrenic sulcus represents scarring or small effusion. Impression: See above. Reported By:
--- NOTE | 2018-08-02 16:46 | RAD ---
Lateral projection of the chest Indication: Shortness of breath, follow-up Findings: Lateral projection demonstrates dense consolidation within the retrocardiac left lower lobe which represents combination of airspace consolidation and pleural effusion. Continued radiographic follow-up in 6-8 weeks is needed and if no resolution further evaluation with chest CT would be recommended. Impression: See above. Reported By:
[2018-08-02 17:23] LABS: BILIRUBIN,URINE NEGATIVE (NEGATIVE); BLOOD/HEMOGLOBIN,URINE NEGATIVE (NEGATIVE); GLUCOSE, URINE NEGATIVE (NEGATIVE); KETONES,URINE NEGATIVE (NEGATIVE); LEUKOCYTE ESTERASE ,URINE 1+ (NEGATIVE); NITRITES,URINE NEGATIVE (NEGATIVE); PROTEIN,URINE NEGATIVE (NEGATIVE); UROBILINOGEN,URINE NORMAL (NORMAL)
[2018-08-02 17:31] LABS: APPEARANCE,URINE CLEAR (CLEAR); COLOR,URINE YELLOW (YELLOW)
[2018-08-02 17:32] LABS: BACTERIA,URINE TRACE /HPF (NEGATIVE); RBC,URINE NONE SEEN /HPF (NONE SEEN); SQUAMOUS EPITHELIAL CELL,UR FEW /HPF (NEGATIVE)
[2018-08-02] MEDS ORDERED: ROCEPHIN VIAL 1 GRAM IVP SCH (19:45)
[2018-08-02] MEDS ORDERED: LEVAQUIN PREMIX IV 500 MG 500 MG/100 ML BAG IV SCH (20:00)
[2018-08-02] MEDS ORDERED: XANAX PO PRN ×2 (20:44→23:33)
[2018-08-02] MEDS ORDERED: ROCEPHIN VIAL 1 GRAM ONE (21:10)
[2018-08-02] MEDS: NS 1000 ML 1,000 ML IV SCH (21:15)
[2018-08-02] MEDS ORDERED: XANAX PO SCH (21:42)
[2018-08-02] MEDS: REQUIP PO SCH (22:34)
[2018-08-02] MEDS: NORCO 10/325 TAB PO PRN (22:35)
[2018-08-02] MEDS: ELIQUIS PO SCH (22:35)
[2018-08-02 23:07] VITALS: BMI 23.1
[2018-08-03 00:10] LABS: CKMB % 3.2 % (<4); CREATINE KINASE 31 Units/L (26-192); CREATINE KINASE MB < 1.0 ng/mL (0-4.0); TROPONIN I < 0.02 ng/mL (0-1.5)
[2018-08-03 06:40] LABS: BASOPHILS % (AUTO) 0.5 % (0.2-1.0); EOSINOPHILS # (AUTO) 0.2 x10^3/uL (0.0-0.2); EOSINOPHILS % (AUTO) 2.4 % (0.9-2.9); HEMATOCRIT 33.3 % (36.0-47.0); HEMOGLOBIN 11.4 g/dL (12.0-16.0); LYMPHOCYTES % (AUTO) 14.4 % (21.0-51.0); MEAN CORPUSCULAR HEMOGLOBIN 30.6 pg (27.0-34.0); MEAN CORPUSCULAR HGB CONC 34.2 g/dL (33.0-35.0); MEAN CORPUSCULAR VOLUME 89.6 fL (80.0-100.0); MEAN PLATELET VOLUME 7.4 fL (7.4-11.0); MONOCYTES # (AUTO) 0.5 x10^3/uL (0.3-0.8); MONOCYTES % (AUTO) 6.4 % (0.0-13.0); NEUTROPHILS # (AUTO) 5.4 x10^3/uL (2.2-4.8); NEUTROPHILS % (AUTO) 76.3 % (42.0-75.0); PLATELET COUNT 297 X10^3/uL (150.0-450.0); RED BLOOD COUNT 3.72 X10^6/uL (3.5-5.4); RED CELL DISTRIBUTION WIDTH 14.5 % (11.6-16.5); WHITE BLOOD COUNT 7.1 X10^3/uL (3.6-10.0)
[2018-08-03 07:20] LABS: ALANINE AMINOTRANSFERASE 23 Units/L (12-78); ALKALINE PHOSPHATASE 125 Units/L (46-116); ASPARTATE AMINO TRANSFERASE 29 Units/L (15-37); BLOOD UREA NITROGEN 14 mg/dL (7-18); CHLORIDE 103 mmol/L (98-107); COR CA(FOR HYPOALB) 9.8 mg/dL (8.5-10.1); CREATININE 1.25 mg/dL (0.55-1.02); SODIUM 139 mmol/L (136-145); TOTAL PROTEIN 6.6 g/dL (6.4-8.2); eGFR NON BLACK RACES 43 (>60)
[2018-08-03 07:41] LABS: CKMB % 3.3 % (<4); CREATINE KINASE 30 Units/L (26-192); CREATINE KINASE MB < 1.0 ng/mL (0-4.0); TROPONIN I < 0.02 ng/mL (0-1.5)
[2018-08-03] MEDS: CLARITIN PO SCH (08:40)
[2018-08-03] MEDS: CORDARONE TAB 200 MG PO SCH (08:40)
[2018-08-03] MEDS: XANAX PO SCH (08:41)
[2018-08-03] MEDS: PriLOSEC PO SCH (08:41)
[2018-08-03] MEDS: ELIQUIS PO SCH ×2 (08:41→20:30)
[2018-08-03] MEDS: NS 1000 ML 1,000 ML IV SCH ×3 (08:42→23:01)
[2018-08-03] MEDS ORDERED: XANAX PO SCH ×2 (09:00→21:00)
[2018-08-03] MEDS ORDERED: OMEGA DHA EPA FISH OIL PO SCH (09:00)
[2018-08-03] MEDS ORDERED: NORVASC TAB 10 MG PO SCH ×2 (09:00→21:00)
[2018-08-03] MEDS ORDERED: LASIX IVP ONE (11:34)
[2018-08-03] MEDS ORDERED: CHLORASEPTIC SPRAY MT PRN (12:36)
[2018-08-03] MEDS: MAALOX or MYLANTA PO PRN ×2 (13:28→20:29)
[2018-08-03] MEDS: MILK OF MAGNESIA PO SCH (13:28)
--- NOTE | 2018-08-03 18:40 | DR.H&P ---
H&P - History & Physical for Day of: H&P Date: 08/02/18 - Chief Complaint Chief Complaint: WEAKNESS, DIZZY SPELL - History of Present Illness History of Present Illness: EMS STATED THAT WHEN THEY ARRIVED PATIENT WAS HAVING WHAT APPEARED TO BE A PANIC ATTACK OR ANXIETY. THEY HAS WAS VERY WARM AND SHE WAS NOT WEARING HER HOME O2. SINCE PATIENT SHE WOULD NOT CALM DOWN THEY BROUGHT HER IN FOR FUTHER EVALUATION. - Past Medical History Past Medical History: Hypertension, Dementia, Anxiety, GERD, Arthritis - Past Surgical History Surgical History: Cholecystectomy, Hysterectomy, Mastectomy, Ortho Surgery, Other - Family History Family Medical History: Cancer, [place], Heart Failure - Social History Does patient currently use any type of tobacco product: No Have you used tobacco products in the last 12 months: No Type of Tobacco Use: None Does any household member use tobacco: No Alcohol Use: None Drug Use: None - Medications Home Medications: Cephalosporins Allergy (Verified 11/29/17 13:23) codeine Allergy (Verified 11/29/17 13:23) Penicillins Allergy (Verified 11/29/17 13:23) Sulfa (Sulfonamide Antibiotics) [SULFA] Allergy (Verified 11/29/17 13:23) vancomycin Allergy (Verified 11/29/17 13:23) RASH CONTINUE taking the following medications ropinirole 0.5 mg PO HS 08/02/18 [History] - Review of Systems Constitutional: Weakness Eyes: No Symptoms Reported ENT: No Symptoms Reported Respiratory: Cough, Shortness of Breath Cardiovascular: Light Headedness Gastrointestinal: No Symptoms Reported Genitourinary: No Symptoms Reported Musculoskeletal: Back Pain Skin: No Symptoms Reported Neurological: Weakness - Physical Exam Vital Signs: Temperature 99.4 F Pulse Rate [Left Brachial] 61 Pulse Rate 61 Respiratory Rate 20 Blood Pressure [Left Arm] 141/99 Blood Pressure [Right Femoral 142/63 Artery] Blood Pressure [Right Arm] 136/62 Blood Pressure 136/62 O2 Sat by Pulse Oximetry 97 Oriented: Normal Eyes: Normal Ear: Normal Nose: Discharge Throat: Normal Respiratory: RLL Diminished, LLL Diminished Cardiovascular: Normal. negative: Edema : Normal Auscultation: Bowel Sounds: Normal Palpation: Normal Tenderness: Normal Skin: Decreased Turgur Musculoskeletal: Back:Thoracic, Back:Lumbar, Instability Psychiatric: Anxiety Speech Pattern: Clear, Appropriate - Assessment/Plan (1) Pneumonia Status: Acute Plan: ADMIT ICU. SERIAL CE AND EKG, SUPPLEMENTAL O2. VERIFY AND RESUME HOME MEDICATIONS. BP CONTROL, STRICT I & OS, RESP CONSULT\. IV ATBX (2) Pleural effusion Status: Acute (3) Paroxysmal a-fib Status: Acute (4) Hypertension Status: Chronic (5) History of breast cancer Status: Chronic (6) Anxiety Status: Chronic (7) Weakness Status: Acute - Allergies Allergies/Adverse Reactions: Allergies Allergy/AdvReac Type Severity Reaction Status Date / Time Cephalosporins Allergy Verified 11/29/17 13:23 codeine Allergy Verified 11/29/17 13:23 Penicillins Allergy Verified 11/29/17 13:23 Sulfa (Sulfonamide Allergy Verified 11/29/17 13:23 Antibiotics) [SULFA] vancomycin Allergy RASH Verified 11/29/17 13:23
[2018-08-03] MEDS: REQUIP PO SCH (20:27)
[2018-08-03] MEDS: NORCO 10/325 TAB PO PRN (20:28)
[2018-08-03] MEDS ORDERED: PATIENT'S HOME MEDICATION PO SCH (21:00)
[2018-08-03] MEDS ORDERED: LEVAQUIN PREMIX IV 500 MG 500 MG/100 ML BAG IV SCH (21:00)
[2018-08-03] MEDS ORDERED: LEVAQUIN PREMIX IV 250 MG 250 MG/50 ML BAG IV SCH (21:00)
[2018-08-03] MEDS ORDERED: COLACE CAP 100 MG PO SCH (21:00)
[2018-08-04] MEDS ORDERED: ZOFRAN TAB 4 MG ONE (01:56)
[2018-08-04] MEDS: ZOFRAN TAB 4 MG SL PRN ×2 (02:07→13:53)
[2018-08-04 06:36] LABS: ALBUMIN 2.7 g/dL (3.4-5.0); CALCIUM 8.9 mg/dL (8.5-10.1); CARBON DIOXIDE 31.5 mmol/L (21-32); COR CA(FOR HYPOALB) 9.9 mg/dL (8.5-10.1); CREATININE 1.4 mg/dL (0.55-1.02); TOTAL PROTEIN 6.1 g/dL (6.4-8.2)
[2018-08-04 06:38] LABS: BASOPHILS # (AUTO) 0.1 X10^3/uL (0.0-0.1); BASOPHILS % (AUTO) 0.6 % (0.2-1.0); EOSINOPHILS # (AUTO) 0.1 x10^3/uL (0.0-0.2); EOSINOPHILS % (AUTO) 0.7 % (0.9-2.9); HEMATOCRIT 32.5 % (36.0-47.0); HEMOGLOBIN 10.8 g/dL (12.0-16.0); LYMPHOCYTES # (AUTO) 0.9 X10^3/uL (1.3-2.9); MEAN CORPUSCULAR HEMOGLOBIN 29.9 pg (27.0-34.0); MEAN CORPUSCULAR HGB CONC 33.2 g/dL (33.0-35.0); MEAN PLATELET VOLUME 7.9 fL (7.4-11.0); MONOCYTES # (AUTO) 0.6 x10^3/uL (0.3-0.8); MONOCYTES % (AUTO) 5.3 % (0.0-13.0); NEUTROPHILS # (AUTO) 10.1 x10^3/uL (2.2-4.8); NEUTROPHILS % (AUTO) 85.4 % (42.0-75.0); PLATELET COUNT 281 X10^3/uL (150.0-450.0); RED BLOOD COUNT 3.62 X10^6/uL (3.5-5.4); RED CELL DISTRIBUTION WIDTH 14.4 % (11.6-16.5); WHITE BLOOD COUNT 11.9 X10^3/uL (3.6-10.0)
[2018-08-04] MEDS: ELIQUIS PO SCH (08:25)
[2018-08-04] MEDS: XANAX PO SCH (08:25)
[2018-08-04] MEDS: PriLOSEC PO SCH (08:25)
[2018-08-04] MEDS: CORDARONE TAB 200 MG PO SCH (08:25)
[2018-08-04] MEDS: CLARITIN PO SCH (08:25)
[2018-08-04] MEDS: MILK OF MAGNESIA PO SCH (08:25)
[2018-08-04] MEDS ORDERED: MILK OF MAGNESIA PO SCH (09:00)
--- NOTE | 2018-08-04 10:17 | RAD ---
HISTORY: Shortness of breath Study: Single-view chest, done portably Comparison: 08/02/2018. Findings: Trachea is midline. There is cardiomegaly with atherosclerotic calcification and uncoiling of the aortic arch. Mild hyperinflation of the lungs is seen with increased interstitial markings bilaterally. Very slight improvement in aeration is noted in the left retrocardiac region. There is still considerable density present. Small amount of pleural fluid may be present. No consolidation is seen in the right lung and no consolidation is seen in the left upper lobe. Degenerative changes are present involving both shoulders. IMPRESSION: Changes of mild COPD with some improved aeration noted in the medial aspect of the dense consolidation of the left retrocardiac region. There is still considerable consolidation present. Reported By:
[2018-08-04] MEDS: MAALOX or MYLANTA PO PRN (11:04)
[2018-08-04] MEDS: NS 1000 ML 1,000 ML IV SCH (11:04)
--- NOTE | 2018-08-04 12:01 | CT ---
HISTORY: Left lower lobe infiltrate Study: CT chest without contrast Comparison: Plain film same date Technique: Axial noncontrast images with coronal and sagittal reformats. Dose reduction procedures were used with mA/kv adjusted for body size. THIS EXAMINATION IS LIMITED DUE TO THE LACK OF INTRAVENOUS CONTRAST. The examination was performed in this manner at the sole discretion of the ordering caregiver and without input requested from or accepted from Radiology. Findings: Examination of the mediastinum demonstrated no evidence for mediastinal masses, enlarged mediastinal or enlarged hilar adenopathy to the limitations of an unenhanced examination. Calcific atherosclerotic changes present in a nondilated thoracic aorta. There is a small left pleural effusion present. No chest wall or axillary abnormality is identified. Those portions of the upper abdominal organs visualized were within normal limits to the limitations of an unenhanced examination. Examination of the lung carvalho demonstrated the right lung and left upper lung carvalho to be clear. No nodules, masses, or alveolar infiltrates are identified in those areas. There is some peribronchial infiltrate in the retrocardiac area of the left lower lobe. Consolidation does not appear to be present. No peribronchial thickening or bronchiectasis is identified. IMPRESSION: Small peribronchial infiltrate in the retrocardiac area of the left lower lobe with an accompanying minimal pleural effusion. Consolidation in that area no longer appears to be present. The remainder of the lung carvalho are clear. Reported By:
[2018-08-04 12:18] VITALS: BP 156/68
== END 2018-08-04 15:45 | disposition home health service (06) ==
LOC: ER 13:36 → ICU 13:36
PROVIDERS: ADMIT Internal Medicine; ATTEND Internal Medicine
DX: R94.31 Abnormal electrocardiogram [ECG] [EKG]; R26.89 Other abnormalities of gait and mobility; R06.02 Shortness of breath; M13.89 Other specified arthritis, multiple sites; R42 Dizziness and giddiness; F41.8 Other specified anxiety disorders; J91.8 Pleural effusion in other conditions classified elsewhere; R74.8 Abnormal levels of other serum enzymes; Z79.01 Long term (current) use of anticoagulants; I50.9 Heart failure, unspecified; R94.4 Abnormal results of kidney function studies; I48.1 Persistent atrial fibrillation; R53.1 Weakness; J18.8 Other pneumonia, unspecified organism; R51 Headache; I11.0 Hypertensive heart disease with heart failure; K21.9 Gastro-esophageal reflux disease without esophagitis
CPT/HCPCS: 36415; 70450; 71010; 71045; 71250; 80053; 81001; 82550; 82553; 84484; 85025; 87502; 93005; 96365; 96367; 96374; 97163; 97166; 97530; 97535; 99284; A4222; G0378; J0696; J1940; J1956; J7030; S0181